=== PATIENT | male | born 1980 | race Caucasian/White ===

== ENCOUNTER 2016-09-29 01:14 | Emergency (ER) | payer MEDICAID ==
[~2016-09-29] VITALS: Ht 193 cm; Wt 154.2 kg
[~2016-09-29 01:14] MED LIST: ASPIRIN 81MG TA81 MG PO; BUPROPION HCL300 MG PO; LOSARTAN POTASS1 TA1 PO; TAMIFLU75 MG PO
[2016-09-29 01:53] LABS: HEMOGLOBIN 15.4 g/dL (14.1-18.0); LYMPH # 2.5 K/mm3 (0.7-4.5); LYMPH % 37.2 % (10-50)
[2016-09-29 03:13] LABS: BUN 14 mg/dL (7-18)
[2016-09-29 03:14] LABS: GFR (ESTIMATED) 96 ML/MIN (>60)
--- NOTE | 2016-09-29 03:24 | Emergency Room Report ---
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 N Clinical Suspician of Infection? N Mental Status: 1 - Regular (Normal Baseline) Sepsis Risk:Possible Sepsis Risk Have you (or family members/close friends) recently traveled outside the [place]? N If Yes, where/when: Have you had exposure to infectious disease within the past month? N TB? Other? Specify: Source patient, RN notes reviewed, old records Exam Limitations no limitations Comment took otc med with inc hr and bp with no chest pain Cardiac Chest Pain Chest pain indicative of cardiac No Timing/Duration this evening Severity moderate ALLERGIES Coded Allergies: Penicillins (09/17/16) codeine (09/17/16) Home Medications Reported Medications LOSARTAN/HYDROCHLOROTHIAZIDE (Losartan-Hctz 100-25 MG Tab) 1 TAB PO DAILY #30 ASPIRIN (Aspirin) 81 MG PO DAILY BUPROPION HCL (Bupropion XL) 300 MG PO DAILY #30 History Medical History General Angina: No [place]: No Hypertension? Yes Hyperlipidemia? No CHF? No PE? No COPD? No Asthma? No Anemia? No GERD? No Gastric ulcers? No GI Bleed? No Hernia? No CVA? No Seizures? No Diabetes? No GB Disease: No Arthritis? No Migraines? Yes Cataracts? No Glaucoma? No MRSA? No TB? No Cancer? No Immunization Hx DT/Tetanus 5-10 YRS Surgical Hx Previous Surgery?N Social History Smoking Hx Smoker: Light Tobacco Smoker Tobacco: Yes Type Cigars Packs/day N/A Alcohol Alcohol: Yes Drugs none Review of Systems All Other Systems Reviewed and Negative Constitutional denies fever Eyes denies drainage ENT denies: ear pain, epistaxis, throat pain. Respiratory denies cough, denies shortness of breath, denies wheezing Cardiovascular see HPI, denies chest pain, palpitations, denies syncope Gastrointestinal denies abdominal pain, denies diarrhea, denies vomiting Genitourinary denies: dysuria, frequency, hesitancy, hematuria. Musculoskeletal denies back pain, denies joint pain, denies joint swelling, denies neck pain Skin denies rash Psychiatric/Neurological denies headache, denies seizure Physical Exam Vital Signs Vital Signs Date Time Temp Pulse Resp B/P Pulse O2 O2 Flow FiO2 Ox Delivery Rate 09/29 0312 104 20 183/107 99 09/29 0152 103 22 195/105 98 09/29 0118 98.9 117 22 201/111 98 - WBC >12,000 or <4,000 or 10% bands? 2 or more SIRS Criteria Met? B/P:183/107 MAP:141 Creatinine >2.0? UA output<0.5ml/kg/hr for 2 hrs? Platelet count >100,000? Lactate >2.0mmol/1? INR >1.2 or PTT > than 60 sec? Evidence of Organ Dysfunction? Provider documented clinical suspician of infection? N Sepsis Criteria Count: 2 Sepsis Risk: Possible Sepsis Risk General Appearance no apparent distress Eye Exam - bilateral eye PERRL, bilateral eye EOMI Ear, Nose, Throat normal ENT inspection Neck supple Respiratory Status No: respiratory distress. Lung Sounds bilateral: lungs clear. 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 No Results/Orders Laboratory Tests 09/29/16 0135: Sodium 141, Potassium 3.3 L, Chloride 104, Carbon Dioxide 28, BUN 14, Creatinine 0.9, Estimated Creat Clear 250 H, Estimated GFR (MDRD) 96, Glucose 113 H, Calcium 8.6, Total Bilirubin 0.4, AST 22, ALT 59, Alkaline Phosphatase 92, Creatine Kinase 113, CK-MB (CK-2) Rel Index 1.0, CK and CKMB Interp 1.1, Troponin I < 0.02, Total Protein 8.0, Albumin 3.8, Globulin 4.2 H, Albumin/ Globulin Ratio 0.9 L, WBC 6.6, RBC 5.03, Hgb 15.4, Hct 44.1, MCV 87.6, RDW 12.3 , Plt Count 184, MPV 6.3 L, Gran % 57.1, Gran # 3.8, Lymphocytes % 37.2, Monocytes % 3.8, Eosinophils % 1.5, Basophils % 0.4, Lymphocytes # 2.5, Monocytes # 0.3, Eosinophils # 0.1, Basophils # 0.0, PUBS MCHC 34.9, MCH 30.6 Current Medication Orders Sig/Alessia Start time Last Medication Dose Route Stop Time Status Admin Aspirin 0 .STK-MED ONE 09/30 147 DC .ROUTE Aspirin 162 MG ONCE ONE 09/29 144 DC 09/29 PO 09/29 145 0151 Sodium Chloride 10 ML PRN PRN 09/29 129 AC IV 09/30 129 Orders Procedure Date/time Status ELECTROCARDIOGRAM REQUEST 09/29 129 Active CHEST(2 VIEWS-NOT PORTABLE) 09/29 129 Active IV SALINE LOCK 09/29 129 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 ST/Twave chgs XRAY/CT/US XRAY/CT/US XRAY chest XR interpretation by reviewed by me Xray Results abnormal Departure Departure Time of Disposition 355 Disposition DC Home or Self Care(routine) Clinical Impression Primary Impression: Adverse effects of medication Secondary Impressions: HTN (hypertension) Qualifiers: Hypertension type: essential hypertension Qualified Code: I10 - Essential (primary) hypertension Condition STABLE Referrals Piero ESPANA,A.C. (Family) Patient Instructions Treatments for High Blood Pressure: More Than Just Taking a Pill Additional Instructions see pcp for follow up Discharge Counseling Counseled pt/family regarding diagnosis, test results, follow up needs ED Critical Care Critical Care No at 035
--- NOTE | 2016-09-29 03:24 | Emergency Room Report ---
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 N Clinical Suspician of Infection? N Mental Status: 1 - Regular (Normal Baseline) Sepsis Risk:Possible Sepsis Risk Have you (or family members/close friends) recently traveled outside the [place]? N If Yes, where/when: Have you had exposure to infectious disease within the past month? N TB? Other? Specify: Source patient, RN notes reviewed, old records Exam Limitations no limitations Comment took otc med with inc hr and bp with no chest pain Cardiac Chest Pain Chest pain indicative of cardiac No Timing/Duration this evening Severity moderate ALLERGIES Coded Allergies: Penicillins (09/17/16) codeine (09/17/16) Home Medications Reported Medications LOSARTAN/HYDROCHLOROTHIAZIDE (Losartan-Hctz 100-25 MG Tab) 1 TAB PO DAILY #30 ASPIRIN (Aspirin) 81 MG PO DAILY BUPROPION HCL (Bupropion XL) 300 MG PO DAILY #30 History Medical History General Angina: No [place]: No Hypertension? Yes Hyperlipidemia? No CHF? No PE? No COPD? No Asthma? No Anemia? No GERD? No Gastric ulcers? No GI Bleed? No Hernia? No CVA? No Seizures? No Diabetes? No GB Disease: No Arthritis? No Migraines? Yes Cataracts? No Glaucoma? No MRSA? No TB? No Cancer? No Immunization Hx DT/Tetanus 5-10 YRS Surgical Hx Previous Surgery?N Social History Smoking Hx Smoker: Light Tobacco Smoker Tobacco: Yes Type Cigars Packs/day N/A Alcohol Alcohol: Yes Drugs none Review of Systems All Other Systems Reviewed and Negative Constitutional denies fever Eyes denies drainage ENT denies: ear pain, epistaxis, throat pain. Respiratory denies cough, denies shortness of breath, denies wheezing Cardiovascular see HPI, denies chest pain, palpitations, denies syncope Gastrointestinal denies abdominal pain, denies diarrhea, denies vomiting Genitourinary denies: dysuria, frequency, hesitancy, hematuria. Musculoskeletal denies back pain, denies joint pain, denies joint swelling, denies neck pain Skin denies rash Psychiatric/Neurological denies headache, denies seizure Physical Exam Vital Signs Vital Signs Date Time Temp Pulse Resp B/P Pulse O2 O2 Flow FiO2 Ox Delivery Rate 09/29 0312 104 20 183/107 99 09/29 0152 103 22 195/105 98 09/29 0118 98.9 117 22 201/111 98 - WBC >12,000 or <4,000 or 10% bands? 2 or more SIRS Criteria Met? B/P:183/107 MAP:141 Creatinine >2.0? UA output<0.5ml/kg/hr for 2 hrs? Platelet count >100,000? Lactate >2.0mmol/1? INR >1.2 or PTT > than 60 sec? Evidence of Organ Dysfunction? Provider documented clinical suspician of infection? N Sepsis Criteria Count: 2 Sepsis Risk: Possible Sepsis Risk General Appearance no apparent distress Eye Exam - bilateral eye PERRL, bilateral eye EOMI Ear, Nose, Throat normal ENT inspection Neck supple Respiratory Status No: respiratory distress. Lung Sounds bilateral: lungs clear. 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 No Results/Orders Laboratory Tests 09/29/16 0135: Sodium 141, Potassium 3.3 L, Chloride 104, Carbon Dioxide 28, BUN 14, Creatinine 0.9, Estimated Creat Clear 250 H, Estimated GFR (MDRD) 96, Glucose 113 H, Calcium 8.6, Total Bilirubin 0.4, AST 22, ALT 59, Alkaline Phosphatase 92, Creatine Kinase 113, CK-MB (CK-2) Rel Index 1.0, CK and CKMB Interp 1.1, Troponin I < 0.02, Total Protein 8.0, Albumin 3.8, Globulin 4.2 H, Albumin/ Globulin Ratio 0.9 L, WBC 6.6, RBC 5.03, Hgb 15.4, Hct 44.1, MCV 87.6, RDW 12.3 , Plt Count 184, MPV 6.3 L, Gran % 57.1, Gran # 3.8, Lymphocytes % 37.2, Monocytes % 3.8, Eosinophils % 1.5, Basophils % 0.4, Lymphocytes # 2.5, Monocytes # 0.3, Eosinophils # 0.1, Basophils # 0.0, PUBS MCHC 34.9, MCH 30.6 Current Medication Orders Sig/Alessia Start time Last Medication Dose Route Stop Time Status Admin Aspirin 0 .STK-MED ONE 09/30 147 DC .ROUTE Aspirin 162 MG ONCE ONE 09/29 144 DC 09/29 PO 09/29 145 0151 Sodium Chloride 10 ML PRN PRN 09/29 129 AC IV 09/30 129 Orders Procedure Date/time Status ELECTROCARDIOGRAM REQUEST 09/29 129 Active CHEST(2 VIEWS-NOT PORTABLE) 09/29 129 Active IV SALINE LOCK 09/29 129 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 ST/Twave chgs XRAY/CT/US XRAY/CT/US XRAY chest XR interpretation by reviewed by me Xray Results abnormal Departure Departure Time of Disposition 355 Disposition DC Home or Self Care(routine) Clinical Impression Primary Impression: Adverse effects of medication Secondary Impressions: HTN (hypertension) Qualifiers: Hypertension type: essential hypertension Qualified Code: I10 - Essential (primary) hypertension Condition STABLE Referrals Piero ESPANA,A.C. (Family) Patient Instructions Treatments for High Blood Pressure: More Than Just Taking a Pill Additional Instructions see pcp for follow up Discharge Counseling Counseled pt/family regarding diagnosis, test results, follow up needs ED Critical Care Critical Care No at 035
[2016-09-29 04:12] VITALS: BP 167/105
--- NOTE | 2016-09-29 09:01 | RADIOLOGY REPORT PS360 ---
CHEST(2 VIEWS-NOT PORTABLE) COMPARISON: PA and lateral chest 09/09/2016 HISTORY: Chest pain TECHNIQUE: PA and lateral chest FINDINGS: The lung murray are well expanded and appear clear of infiltrate. The cardiac silhouette and vascularity are normal and there is no pleural fluid. There are minor degenerative changes mid thoracic spine. IMPRESSION: Essentially negative chest
== END 2016-09-29 04:12 | disposition home or self-care (01) ==
LOC: ER 01:14
PROVIDERS: Emergency Medicine
DX: R00.0 Tachycardia, unspecified (principal); T50.995A Adverse effect of other drugs, medicaments and biological substances, initial encounter; Y92.009 Unspecified place in unspecified non-institutional (private) residence as the place of occurrence of the external cause; I10 Essential (primary) hypertension; Z72.0 Tobacco use

== ENCOUNTER 2017-02-24 16:14 | Emergency (ER) | payer MEDICAID ==
[~2017-02-24] VITALS: Ht 193 cm; Wt 158.8 kg
--- NOTE | 2017-02-24 17:03 | Urgent Treatment Center Report ---
History of Present Issue Date/Time Seen by Provider 02/24/17 8545 Visit Reason Pt arrived:Walked Presenting Problem:SORE THROAT FOR 2 DAYS AND TIRED. Location if Accident: Onset of symptoms date/time:/ or onset unknown for:MEDICAL HX UNKNOWN Have you (or family members/close friends) recently traveled outside the [place]? N If Yes, where/when: Have you had exposure to infectious disease within the past month? TB? Other? Specify: Patient states that he has had the sorethroat for several days that has continued to get worse. States that he is having pain when he swallows and over all feeling tired and not feeling well for 2 days States that his daughter was recently treated for strep so he was worried that he may have got it too ALLERGIES Coded Allergies: Penicillins (09/17/16) codeine (09/17/16) Home Medications Reported Medications LOSARTAN/HYDROCHLOROTHIAZIDE (Losartan-Hctz 100-25 MG Tab) 1 TAB PO DAILY #30 ASPIRIN (Aspirin) 81 MG PO DAILY BUPROPION HCL (Bupropion XL) 300 MG PO DAILY #30 History Medical History General CAD? No Angina: No [place]: No Hypertension? Yes Hyperlipidemia? No CHF? No DVT? No PE? No COPD? No Asthma? No Anemia? No GERD? No Gastric ulcers? No GI Bleed? No Hernia? No Thyroid Problems? No Hypothyroidism? No CVA? No Seizures? No Diabetes? No Renal Insuffiency? No UTI? No Stones? No BPH? No GB Disease: No Nephritic Syndrome? No Asplenia? No Hepatitis? No Sickle Cell Disease? No Arthritis? No Migraines? Yes Cataracts? No Glaucoma? No MRSA? No HIV? No TB? No Anxiety? Yes Depression? No Cancer? No More? No Immunization HX DT/Tetanus 5-10 YRS Surgical Hx Previous Surgery?N Social History Smoking Hx Smoker: Never Smoker Tobacco: No Packs/day N/A Alcohol Alcohol: Yes Review of Systems All Other Systems Reviewed and Negative ENT nose congestion, throat pain, throat swelling. Physical Exam Vital Signs Vital Signs Date Time Temp Pulse Resp B/P Pulse O2 O2 Flow FiO2 Ox Delivery Rate 02/24 1718 98.7 87 20 138/96 98 02/24 1648 98.7 87 20 138/96 98 General Appearance Patient appears ill sitting on exam chair Ear, Nose, Throat tonsillar swelling, throat red irritated, white patchy area on uvula, drainage noted in back of throat Respiratory Status Yes: trachea midline, chest symmetrical, non tender chest. No: respiratory distress. 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 No Results/Orders Laboratory Tests 02/24/17 1650: Group A Strep Screen NOT DETECTED Orders Procedure Date/time Status [facility] STREP SCREEN 02/24 1653 Complete Progress [facility] Progress Notes Comment reviewed lab results Departure Departure Time of Disposition 171 Disposition DC Home or Self Care(routine) Clinical Impression Primary Impression: Upper respiratory infection Qualifiers: URI type: unspecified URI Qualified Code: J06.9 - Acute upper respiratory infection, unspecified Condition STABLE Referrals Piero ESPANA,A.C. (Family): 3 Days-Call Office Patient Instructions Sore Throat Additional Instructions * Monitor Temp. Tylenol and/or Ibuprofen as needed. ER if fever is no less than 101 despite alternating Tylenol and Ibuprofen * Encourage fluids, water, Gatorade, powerade, pedialyte if infant/toddler/or child * Warm salt water gargles for throat irritation *Warm fluids *Sore throat lozenges *Sleep elevated *humidifier or vaporizer Follow up IMMEDIATELY for new or worsening of symptoms OR no noticeable improvement over the next 48-72 hours. 911 immediately for any life threatening symptoms such as chest pain or difficulty breathing Discharge Counseling Counseled pt/family regarding diagnosis, test results, medications/RX, home care, follow up needs Prescriptions Current Visit Scripts Phenol (CHLORASEPTIC THROAT SPRAY) 1 SPRAY MM PRN PRN sore throat pain #1 BOT Azithromycin (Zithromycin (Z-ELSY) 250MG Tab) 250 MG PO DAILY #6 TAB TAKE TWO (2) TABLETS ON DAY 1, THEN ONE (1) TABLET DAY #2 THRU #5 Methylprednisolone (Medrol Dose Elsy) 4 MG PO UD #1 ELSY TAKE DIRECTED ON PACKAGING at 1721
--- NOTE | 2017-02-24 17:03 | Urgent Treatment Center Report ---
History of Present Issue Date/Time Seen by Provider 02/24/17 0205 Visit Reason Pt arrived:Walked Presenting Problem:SORE THROAT FOR 2 DAYS AND TIRED. Location if Accident: Onset of symptoms date/time:/ or onset unknown for:MEDICAL HX UNKNOWN Have you (or family members/close friends) recently traveled outside the [place]? N If Yes, where/when: Have you had exposure to infectious disease within the past month? TB? Other? Specify: Patient states that he has had the sorethroat for several days that has continued to get worse. States that he is having pain when he swallows and over all feeling tired and not feeling well for 2 days States that his daughter was recently treated for strep so he was worried that he may have got it too ALLERGIES Coded Allergies: Penicillins (09/17/16) codeine (09/17/16) Home Medications Reported Medications LOSARTAN/HYDROCHLOROTHIAZIDE (Losartan-Hctz 100-25 MG Tab) 1 TAB PO DAILY #30 ASPIRIN (Aspirin) 81 MG PO DAILY BUPROPION HCL (Bupropion XL) 300 MG PO DAILY #30 History Medical History General CAD? No Angina: No [place]: No Hypertension? Yes Hyperlipidemia? No CHF? No DVT? No PE? No COPD? No Asthma? No Anemia? No GERD? No Gastric ulcers? No GI Bleed? No Hernia? No Thyroid Problems? No Hypothyroidism? No CVA? No Seizures? No Diabetes? No Renal Insuffiency? No UTI? No Stones? No BPH? No GB Disease: No Nephritic Syndrome? No Asplenia? No Hepatitis? No Sickle Cell Disease? No Arthritis? No Migraines? Yes Cataracts? No Glaucoma? No MRSA? No HIV? No TB? No Anxiety? Yes Depression? No Cancer? No More? No Immunization HX DT/Tetanus 5-10 YRS Surgical Hx Previous Surgery?N Social History Smoking Hx Smoker: Never Smoker Tobacco: No Packs/day N/A Alcohol Alcohol: Yes Review of Systems All Other Systems Reviewed and Negative ENT nose congestion, throat pain, throat swelling. Physical Exam Vital Signs Vital Signs Date Time Temp Pulse Resp B/P Pulse O2 O2 Flow FiO2 Ox Delivery Rate 02/24 1718 98.7 87 20 138/96 98 02/24 1648 98.7 87 20 138/96 98 General Appearance Patient appears ill sitting on exam chair Ear, Nose, Throat tonsillar swelling, throat red irritated, white patchy area on uvula, drainage noted in back of throat Respiratory Status Yes: trachea midline, chest symmetrical, non tender chest. No: respiratory distress. 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 No Results/Orders Laboratory Tests 02/24/17 1650: Group A Strep Screen NOT DETECTED Orders Procedure Date/time Status [facility] STREP SCREEN 02/24 1653 Complete Progress [facility] Progress Notes Comment reviewed lab results Departure Departure Time of Disposition 171 Disposition DC Home or Self Care(routine) Clinical Impression Primary Impression: Upper respiratory infection Qualifiers: URI type: unspecified URI Qualified Code: J06.9 - Acute upper respiratory infection, unspecified Condition STABLE Referrals Piero ESPANA,A.C. (Family): 3 Days-Call Office Patient Instructions Sore Throat Additional Instructions * Monitor Temp. Tylenol and/or Ibuprofen as needed. ER if fever is no less than 101 despite alternating Tylenol and Ibuprofen * Encourage fluids, water, Gatorade, powerade, pedialyte if infant/toddler/or child * Warm salt water gargles for throat irritation *Warm fluids *Sore throat lozenges *Sleep elevated *humidifier or vaporizer Follow up IMMEDIATELY for new or worsening of symptoms OR no noticeable improvement over the next 48-72 hours. 911 immediately for any life threatening symptoms such as chest pain or difficulty breathing Discharge Counseling Counseled pt/family regarding diagnosis, test results, medications/RX, home care, follow up needs Prescriptions Current Visit Scripts Phenol (CHLORASEPTIC THROAT SPRAY) 1 SPRAY MM PRN PRN sore throat pain #1 BOT Azithromycin (Zithromycin (Z-ELSY) 250MG Tab) 250 MG PO DAILY #6 TAB TAKE TWO (2) TABLETS ON DAY 1, THEN ONE (1) TABLET DAY #2 THRU #5 Methylprednisolone (Medrol Dose Elsy) 4 MG PO UD #1 ELSY TAKE DIRECTED ON PACKAGING at 1721
[2017-02-24 17:18] VITALS: BP 138/96
[2017-02-24] MEDS ORDERED: MEDROL 4MG. DOSE4 MG PO (17:21)
[2017-02-24] MEDS ORDERED: ZITHROMAX Z PA250 MG PO (17:21)
[2017-02-24] MEDS ORDERED: CHLORASEPTIC S177 ML MM (17:21)
--- OUTSIDE RECORDS SUMMARY | 2017-02-24 22:33 | External Medical Summary Rpt ---
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 Name Role Phone A Omer DAVIDSON MD PSC, Dave Unavailable Unavailable Omer DAVIDSON MD [facility] VILMA ESPARZA Unavailable Unavailable NORIEGA ALL, NORIEGA ALL Unavailable Unavailable FINE, FINE Unavailable Unavailable CISNEROS, CISNEROS Unavailable Unavailable [facility] Un[facility] Un[facility], [facility] Unavailable [facility]available HOSPITAL P, [facility], Unavailable Unavailable [facility], Unavailable Unavailable [facility] Unavailable Unavailable [facility], [facility] KILPELA JEA, KILPELA Unavailable Unavailable [facility] Unavailable Unavailable [facility] Unavailable Unavailable [facility]INGS, [facility] Unavailable Unavailable HOLDINGS, [facility] IAN SOSA JR, JR Unavailable Unavailable ANJALI, ANJALI Unavailable Unavailable ANJALI MAT, Unavailable Unavailable ANJALI MAT [facility] Unavailable Unavailable E[facility], [facility] Unavailable Unavailable [facility], [facility] STONE, STONE Unavailable Unavailable MIKE, MIKE Unavailable Unavailable Purpose Continuity of Care Document - 03-18-2016 through 2016 Problems Code Diagnosis DOS Provider Status G4733 OBSTRUCTIVE 12-17-2016 [facility] APNEA ADULT MEDICAL PEDIATRIC EQUIPME 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 [facility] N HOLDINGS I10 ESSENTIAL 10-01-2016 [facility] PRIMARY [facility] HYPERTENSIO HOLDINGS N R000 TACHYCARDIA 10-01-2016 [facility]NS[facility] R0683 SNORING 10-01-2016 [facility] R5383 OTHER 10-01-2016 [facility] R079 CHEST PAIN 09-29-2016 [facility] [id number] ADVERS EFF 09-29-2016 [facility] P SUBSTANCES INIT ENC S41062 UNS PLACE 09-29-2016 [facility] UNS NON [facility] P PLACE OF OCCUR EXT Z720 TOBACCO USE 09-29-2016 [facility] R400 SOMNOLENCE 09-18-2016 [facility] R7989 OTHER SPEC 09-18-2016 [facility] ABNORMAL PHYSICIANS FINDINGS GROUP BLOOD CHEMISTRY R931 ABNORMAL 09-18-2016 [facility] FINDINGS ON PHYSICIANS DX IMAGING GROUP HEART & COR CIRC X65442 PAIN IN 07-08-2016 MIKE UNSPECIFIED ANKLE M2570 OSTEOPHYTE 07-08-2016 [facility] UNSPECIFIED JOINT M7730 CALCANEAL 07-08-2016 [facility] SPUR UNSPECIFIED FOOT G99481 PAIN IN 07-08-2016 [facility] RIGHT FOOT J020 STREPTOCOCC 06-23-2016 [facility] AL PHYSICIAN PHARYNGITIS GROUP 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 DUE GROUP TO EXCESS CALORIES G4700 INSOMNIA 04-18-2016 A Omer DAVIDSON UNSPECIFIED PSC R635 ABNORMAL 04-18-2016 A Omer DAVIDSON WEIGHT GAIN PSC E785 HYPERLIPIDE 04-05-2016 [facility] UNSPECIFIED HOLDINGS 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 03-21-2016 [facility] MITRAL SERV [facility] INSUFFICIEN CY I361 NONRHEUMATI 03-21-2016 [facility] TRICUSPID SERV [facility] INSUFFICIEN CY I371 NONRHEUMATI 03-21-2016 [facility] PULMONARY SERV [facility] INSUFFICIEN CY R0602 SHORTNESS 03-21-2016 [facility] MEDICAL [facility] E669 OBESITY 03-19-2016 [facility] UNSPECIFIED PHYSICIANS GROUP Medications Na ND Rx Da Fi Fi Am Da Di Ph RX Ph St me C No te ll ll ou ys ag ar # ys at rm s nt no ma ic us Or Da si cy ia de te s n re d VE 00 06 07 30 30 00 WA Ac NL 09 -1 .0 00 L- ti AF 37 07 MA ve AX 38 20 20 49 RT IN 45 17 17 43 E 6 73 PH HC AR L MA ER CY 37 #5 .5 91 MG CA P LO 68 06 07 30 30 00 WA Ac SA 18 -1 -1 .0 00 L- ti RT 00 07 MA ve AN 21 20 20 49 RT -H [address] 9 75 PH Z AR 10 MA 0- CY 25 #5 MG 91 TA B VE 00 05 30 30 00 ID Ac NL 09 -0 -0 .0 00 L- ti AF 37 5- 2- 00 07 MA ve AX 38 20 20 48 RT IN 45 17 17 04 E 6 58 PH HC AR L MA ER CY 37 #5 .5 91 MG CA P LO 68 05 30 30 00 ID Ac SA 18 -0 -0 .0 00 L- ti RT 00 5- 2- 00 07 MA ve AN 21 20 20 48 RT -H [address] 9 57 PH Z AR 10 MA 0- CY 25 #5 MG 91 TA B LO 68 04 30 30 00 ID Ac SA 18 -1 -0 .0 00 L- ti RT 00 2- 5- 00 07 MA ve AN 21 20 20 44 RT -H [address] 9 55 PH Z AR 10 MA 0- CY 25 #5 MG 91 TA B VE 00 04 11 17 30 00 ID Ac NL 09 -0 -2 .0 00 L- ti AF 37 4- 8- 00 07 MA ve AX 38 20 20 48 RT IN 45 17 17 04 E 6 58 PH HC AR L MA ER CY 37 #5 .5 91 MG CA P LO 68 03 30 30 00 ID Ac SA 18 -1 -0 .0 00 L- ti RT 00 1- 7- 00 07 MA ve AN 21 20 20 44 RT -H [address] 9 55 PH Z AR 10 MA 0- CY 25 #5 MG 91 TA B BU 45 07 22 29 30 00 ID Ac CA 96 -2 -2 .0 00 L- ti OP 30 8- 4- 00 07 MA ve IO 14 20 20 44 RT N 20 17 17 39 HC 5 72 PH L AR XL MA CY 30 0 #5 MG 91 TA BL ET LO 68 07 22 29 30 00 ID Ac SA 18 -2 -2 .0 00 L- ti RT 00 8- 4- 00 07 MA ve AN 21 20 20 44 RT -H [address] 9 55 PH Z AR 10 MA 0- CY 25 #5 MG 91 TA B Procedures Procedure DOS Code Location Performer Comment CONTINUOU E0601 ANJEL BINGHAMRELL S 7 HOME HOME POSITIVE MEDICAL MEDICAL AIRWAY EQUIPME EQUIPME PRESSURE DEVICE CONTINUOU E0601 ANJEL HOBBS S 7 HOME HOME POSITIVE MEDICAL MEDICAL AIRWAY EQUIPME EQUIPME PRESSURE DEVICE TUBING A7037 ANJEL HOBBS USED WITH 7 HOME HOME POSITIVE MEDICAL MEDICAL AIRWAY EQUIPME EQUIPME PRESSURE DEVICE FULL FACE A7030 ANJEL HOBBS MASK 7 HOME HOME USED MEDICAL MEDICAL W/POS EQUIPME EQUIPME ARWAY PRESS DEVICE EA FILTER A7038 ANJEL HOBBS DISPBL 7 HOME HOME USED MEDICAL MEDICAL W/POS EQUIPME EQUIPME ARWAY PRESSURE DEVICE FILTER A7039 ANJEL HOBBS NON 7 HOME HOME DISPBL MEDICAL MEDICAL USED EQUIPME EQUIPME W/POS ARWAY PRESS DEVICE HUMDIFIR E0562 ANJEL HOBBS HEATED 7 HOME HOME USED MEDICAL MEDICAL W/POS EQUIPME EQUIPME ARWAY PRESSURE DEVICE HEADGEAR A7035 ANJEL HOBBS USED 7 HOME HOME W/POSITIV MEDICAL MEDICAL E AIRWAY EQUIP[place] E[place] [address] LAB [facility] LAB [facility] TESTOSTER 7 [facility] FREE HOLDINGS HOLDINGS GONADOTRO 17267 LAB [facility] LAB [facility] PIN 7 [facility] FOLLICLE HOLDINGS HOLDINGS STIMULATI NG HORMONE GONADOTRO 85068 LAB [facility] LAB [facility] PIN 7 [facility] LUTEINIZI HOLDINGS HOLDINGS NG HORMONE COLLECTIO 39519 Dave C BLAYNE N VENOUS 7 STUART [place] [address] LAB [facility] LAB ALTON FREE 7 [facility] [place] [address] LAB AL[facility] LAB [facility]TON THYROID 7 [facility] ASHLEY STIMULATI HOLDINGS HOLDINGS NG HORMONE TSH SLEEP STD 07432 [facility] COLIN AIRFLOW 7 MEM HOS[facility] MEM HOSP HRT INC INC RATE&O2 SAT EFFORT UNATT COMPREHEN 87488 LAB AL[facility] LAB ALTON SIVE 7 [facility] METABOLIC [place] [address] LAB ALTON LAB ALTON TESTOSTER 7 [facility] [place] [address] LAB AL[facility] LAB ALTON ZINC 7 [facility] HOLDINGS HOLDINGS DEHYDROEP 52944 LAB AL[facility] LAB ALTON IANDROSTE 7 [facility] ASHLEY MICHAEL HOLDINGS HOLDINGS RADIOLOGI 77230 [facility] COLIN C EXAM 7 [facility] HOS[facility] HOSP CHEST 2 INC INC VIEWS FRONTAL&L ATERAL BLOOD 93563 [facility] COLIN COUNT 7 [facility] COMPLETE INC INC AUTO&[place] [address] [facility] COLIN TROPONIN 7 [facility] QUANTITAT INC INC ESTEBAN COMPREHEN 82281 D[facility] COL[facility] SIVE 7 [facility] METABOLIC INC INC PANEL ECG 71140 D[facility]IE ESPARZA ROUTINE 7 [facility] W/LEAST P 12 LDS I&R ONLY ECG 31279 [facility] COLIN ROUTINE 7 [facility] ECG INC INC W/LEAST 12 LDS TRCG ONLY W/O I&R CREATINE 05515 [facility] COLIN KINASE MB 7 [facility] FRACTION INC INC ONLY CREATINE 71890 D[facility] COLIN KINASE 7 [facility] TOTAL INC INC UNCLASSIF J3490 [facility] COLIN IED DRUGS 7 [facility] INC INC UNCLASSIF J3490 D[facility] COL[facility] IED DRUGS 7 [facility] INC INC THER 12019 D[facility] COLIN PROPH/DX 7 [facility] NJX IV INC INC PUSH SINGLE/1S T SBST/DRUG ECG 74959 [facility] COLIN ROUTINE 7 [facility] ECG INC INC W/LEAST 12 LDS TRCG ONLY W/O I&R ECG 04452 [facility] ANJALI ROUTINE 7 PHYSICIAN ECG S GROUP W/LEAST 12 LDS I&R ONLY COMPREHEN 45280 [facility] COLIN SIVE 7 [facility] [place] [address] D[facility] COLIN TROPONIN 7 [facility] QUANTITAT INC INC ESTEBAN BLOOD 89767 [facility] COLIN COUNT 7 [facility] COMPLETE INC INC AUTO&AUTO DIFRNTL WBC RADIOLOGI 75285 [facility] COLIN C EXAM 7 [facility] HOSP CHEST 2 INC INC VIEWS FRONTAL&L ATERAL ECG 51630 [facility]IE SOSA JR ROUTINE 7 [facility] W/LEAST P 12 LDS I&R ONLY ECG 11464 [facility] COLIN ROUTINE 7 [facility] ECG INC INC W/LEAST 12 LDS TRCG ONLY W/O I&R CREATINE 30409 [facility] COL[facility] KINASE 7 [facility] TOTAL INC INC CREATINE 02434 [facility] COLIN KINASE MB 7 [facility] FRACTION INC INC ONLY UNCLASSIF J3490 D[facility] IED DRUGS 7 [facility] INC INC RADEX 67235 MIKE FINE ANKLE 6 COMPLETE MINIMUM 3 VIEWS RADEX 31346 MIKE FINE FOOT 6 COMPLETE MINIMUM 3 VIEWS ECG 98614 [facility] ANJALI ROUTINE 6 PHYSICIAN MAT ECG S GROUP W/LEAST 12 LDS I&R ONLY ECG 65783 [facility] COLIN ROUTINE 6 [facility] ECG INC INC W/LEAST 12 LDS TRCG ONLY W/O I&R LIPID 92355 Dave C CONRAD PANEL 6 [place] [address] LAB [facility] LAB [facility] TESTOSTER 6 [facility] [employer] HOLDINGS HOLDINGS ECHO 53979 BRITNI LEYVA TRANSTHOR 6 MEDICAL LINDA C R-T 2D SERV W/WO FOUNDATIO M-MODE N REC F-UP/LMTD ECG 68394 [facility] ANJALI ROUTINE 6 PHYSICIAN MAT ECG S GROUP W/LEAST 12 LDS I&R ONLY ECG 56058 [facility] ROUTINE 6 [facility] ECG INC INC W/LEAST 12 LDS TRCG ONLY W/O I&R CV STRS 80401 [facility] TST 6 [facility] XERS&/OR INC INC RX CONT ECG TRCG ONLY RADIOLOGI 63792 [facility] C EXAM 6 [facility] CHEST 2 INC INC VIEWS FR[place]AL&[place] [address] D[facility] COLNI RETROPERI 6 [facility] TONEAL INC [place] [address] [facility] NORIEGA ALL RETROPERI 6 MEDICAL TONEAL IMAGING REAL TIME ASS W/IMAGE LIMITED ECHO 37879 [facility] COLIN TTHRC R-T 6 [facility] 2D INC INC W/WOM-MOD E COMPL SPEC&COLR D ECG 30885 [facility] ANJALI ROUTINE 6 PHYSICIAN MAT ECG S GROUP W/LEAST 12 LDS I&R ONLY ECG 67471 [facility] COL[facility] ROUTINE 6 [facility] ECG INC INC W/LEAST 12 LDS TRCG ONLY W/O I&R ECG 52293 A C KILPELA ROUTINE 6 STUART ESPANA JEA ECG PSC W/LEAST 12 LDS W/I&R BLOOD 37839 A C CONRAD COUNT 6 [facility] JEA COMPLETE PSC AUTO&AUTO DIFRNTL WBC HEMOGLOBI 45710 A C KILPELA N 6 [facility] JEA GLYCOSYLA PSC ISABELLE A1C Encounters Encounter Start End Date Code Location Performer Type Date HOSPITAL [facility] - 7 7 [facility] OUTPATIEN INC T OFFICE 81040 A Omer CISNEROS OUTPATIEN 7 7 [facility] T VISIT PSC 15 MINUTES EMERGENCY 79705 [facility] 7 7 [facility] DEPARTMEN INC T VISIT HIGH/URGE NT SEVERITY HOSPITAL [facility] - 7 7 [facility] OUTPATIEN INC T OFFICE 79143 [facility] ANJALI OUTPATIEN 7 7 PHYSICIAN T VISIT S GROUP 25 MINUTES HOSPITAL [facility] - 7 7 [facility] OUTPATIEN INC T HOSPITAL DIXIE - 7 7 [facility] OUTPATIEN INC T EMERGENCY 13792 [facility] 7 7 [facility] DEPARTMEN INC T VISIT HIGH/URGE NT SEVERITY OFFICE 78951 MIKE FINE OUTPATIEN 6 6 T NEW 30 MINUTES OFFICE 61989 [facility] STONE OUTPATIEN 6 6 PHYSICIAN T VISIT GROUP 25 MINUTES OFFICE 55838 [facility] ANJALI OUTPATIEN 6 6 PHYSICIAN MAT T VISIT S GROUP 25 MINUTES HOSPITAL DIXIE - 6 6 [facility] OUTPATIEN INC T OFFICE 44512 A C KILPELA OUTPATIEN 6 6 STUART ADEN T VISIT PSC 25 MINUTES OFFICE 13858 A C TAMIKAPELA OUTPATIEN 6 6 STUART ADEN T VISIT [facility] 15 MINUTES HOSPITAL DIXIE - 6 6 [facility] OUTPATIEN INC T OFFICE 39707 [facility] ANJALI OUTPATIEN 6 6 PHYSICIAN RIKKI Faustin VISIT S GROUP 25 MINUTES HOSPITAL DIXIE - 6 6 [facility] OUTPATIEN INC T OFFICE 46036 A C [place] OUTPATIEN 6 6 STUART ADEN T VISIT [facility] 15 MINUTES OFFICE 74106 [facility] ANJALI OUTPATIEN 6 6 PHYSICIAN RIKKI Faustin NEW 45 S GROUP MINUTES HOSPITAL DIXIE - 6 6 [facility] OUTPATI[facility] INC T
--- OUTSIDE RECORDS SUMMARY | 2017-02-24 22:33 | External Medical Summary Rpt ---
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, Unavailable Unavailable [facility], Unavailable Unavailable [facility] Unavailable [facility]available [facility], [facility] KILPELA JEA, KILPELA Unavailable [...] [facility] R079 CHEST PAIN 09-29-2016 [place] [facility] [id number] ADVERS EFF 09-29-2016 [place] [facility]TH RX MEDS [facility] P SUBSTANCES INIT ENC [id number] UNS PLACE 09-29-2016 DIXIE UNS NON [facility] P PLACE OF OCCUR EXT Z720 TOBACCO USE 09-29-2016 [facility] R400 SOMNOLENCE 09-18-[address] [facility] R7989 OTHER SPEC 09-18-[address] [facility] ABNORMAL PHYSICIANS FINDINGS GROUP BLOOD CHEMISTRY R931 ABNORMAL 09-18-[address] [facility] FINDINGS ON PHYSICIANS DX IMAGING GROUP HEART & COR CIRC [id number] PAIN IN 07-08-2016 MIKE UNSPECIFIED ANKLE M2570 OSTEOPHYTE 07-08-2016 [facility] UNSPECIFIED JOINT M7730 CALCANEAL 07-08-2016 MIKE SPUR UNSPECIFIED FOOT [id number] PAIN IN 07-08-2016 MIKE RIGHT FOOT J020 STREPTOCOCC 06-23-[address] [facility] AL PHYSICIAN PHARYNGITIS GROUP 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-26-[address] [facility] SEVERE PHYSICIANS OBESITY DUE GROUP TO EXCESS CALORIES G4700 INSOMNIA 04-18-2016 A Omer DAVIDSON UNSPECIFIED PSC R635 ABNORMAL 04-18-2016 A Omer DAVIDSON WEIGHT GAIN PSC E785 HYPERLIPIDE 04-05-2016 LAB [facility] UNSPECIFIED HOLDINGS 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 03-21-2016 [place] [facility] INSUFFICIEN CY I361 NONRHEUMATI 03-21-2016 [place] [facility] TRICUSPID SERV [facility] INSUFFICIEN CY I371 NONRHEUMATI 03-21-2016 [place] [facility] PULMONARY [facility] INSUFFICIEN CY R0602 SHORTNESS 03-21-2016 [facility] E669 OBESITY 03-19-[address] [facility] UNSPECIFIED PHYSICIANS GROUP Medications Na ND [...] B VE 00 05 30 30 00 [place] Ac NL 09 -0 -0 .0 00 L- ti AF 37 5- 2- 00 07 MA ve AX 38 20 20 48 RT IN 45 17 17 04 E 6 58 PH HC AR L MA ER CY 37 #5 .5 91 MG CA P LO 68 05 30 30 00 [place] Ac SA 18 -0 -0 .0 00 L- ti RT 00 5- 2- 00 07 MA ve AN 21 20 20 48 RT -H [address] 9 57 PH Z AR 10 MA 0- CY 25 #5 MG 91 TA B LO 68 04 30 30 00 [place] Ac SA 18 -1 -0 .0 00 L- ti RT 00 2- 5- 00 07 MA ve AN 21 20 20 44 RT -H [address] 9 55 PH Z AR 10 MA 0- CY 25 #5 MG 91 TA B VE 00 04 11 17 30 00 [place] Ac NL 09 -0 -2 .0 00 L- ti AF 37 4- 8- 00 07 MA ve AX 38 20 20 48 RT IN 45 17 17 04 E 6 58 PH HC AR L MA ER CY 37 #5 .5 91 MG CA P LO 68 03 30 30 00 [place] Ac SA 18 -1 -0 .0 00 L- ti RT 00 1- 7- 00 07 MA ve AN 21 20 20 44 RT -H [address] 9 55 PH Z AR 10 MA 0- CY 25 #5 MG 91 TA B BU 45 07 22 29 30 00 [place] Ac MN 96 -2 -2 .0 00 L- ti OP 30 8- 4- 00 07 MA ve IO 14 20 20 44 RT N 20 17 17 39 HC 5 72 PH L AR XL MA CY 30 0 #5 MG 91 TA BL ET LO 68 07 22 29 30 00 [place] Ac SA 18 -2 -2 .0 00 [...] AIRWAY EQU[place] [address] LAB AL[facility] LAB ALTON TESTOSTER 7 [facility] FREE HOLDINGS HOLDINGS GONADOTRO 10702 LAB ALTON LAB ALTON PIN 7 [facility] FOLLICLE HOLDINGS HOLDINGS STIMULATI NG HORMONE GONADOTRO 86009 LAB ALTON LAB ALTON PIN 7 [facility] LUTEINIZI HOLDINGS HOLDINGS NG HORMONE COLLECTIO 81776 Dave C BLAYNE N VENOUS 7 STUART ESP[place] B[place] [address] LAB ALTON LAB ALTON FREE 7 [facility] [place] [address] LAB ALTON LAB ALTON THYROID 7 [facility] ASHLEY STIMULATI HOLDINGS HOLDINGS NG HORMONE TSH SLEEP STD 19579 DIXIE COLIN AIRFLOW 7 MEM HOSP MEM HOSP HRT INC INC RATE&O2 SAT EFFORT UNATT COMPREHEN 62056 LAB ALTON LAB ALTON SIVE 7 [facility] METABOLIC [place] [address] LAB ALTON LAB ALTON TESTOSTER 7 [facility] [place] [address] LAB ALTON LAB ALTON ZINC 7 [facility] HOLDINGS HOLDINGS DEHYDROEP 82217 LAB ALTON LAB ALTON IANDROSTE 7 [facility] ASHLEY MICHAEL HOLDINGS HOLDINGS RADIOLOGI 68374 DIXIE COLIN C EXAM 7 MEM HOSP MEM HOSP CHEST 2 INC INC VIEWS FRONTAL&L ATERAL BLOOD 87383 D[facility]IE COLIN COUNT 7 [facility] COMPLETE INC INC AUTO&[place] [address] D[facility]IE COLIN TROPONIN 7 [facility] QUANTITAT INC INC ESTEBAN COMPREHEN 51442 D[facility]IE COLIN SIVE 7 [facility] METABOLIC INC INC PANEL ECG 63211 DIXIE ESPARZA ROUTINE 7 [facility] W/LEAST P 12 LDS I&R ONLY ECG 58303 DIXIE COLIN ROUTINE 7 [facility] ECG INC INC W/LEAST 12 LDS TRCG ONLY W/O I&R CREATINE 27254 DIXIE COLIN KINASE MB 7 [facility]OS[facility] FRACTION INC INC ONLY CREATINE 26986 D[facility]IE COLIN KINASE 7 [facility] TOTAL INC INC UNCLASSIF J3490 DIXIE COLIN IED DRUGS 7 [facility] INC INC UNCLASSIF J3490 DIXIE COLIN IED DRUGS 7 [facility] INC INC THER 07113 DIXIE COLIN PROPH/DX 7 [facility] NJX IV INC INC PUSH SINGLE/1S T SBST/DRUG ECG 14195 DIXIE COLIN ROUTINE 7 [facility] ECG INC INC W/LEAST 12 LDS TRCG ONLY W/O I&R ECG [address] [facility] ANJALI ROUTINE 7 PHYSICIAN ECG S GROUP W/LEAST 12 LDS I&R ONLY COMPREHEN 18335 D[facility]IE COLIN SIVE 7 [facility] [place] [address] DIXIE COLIN TROPONIN 7 [facility]OSP QUANTITAT INC INC ESTEBAN BLOOD 45308 DIXIE COLIN COUNT 7 [facility] COMPLETE INC INC AUTO&AUTO DIFRNTL WBC RADIOLOGI 32958 DIXIE COLIN C EXAM 7 [facility]OSP CHEST 2 INC INC VIEWS FRONTAL&L ATERAL ECG 40759 DIXIE SOSA JR ROUTINE 7 [facility] W/LEAST P 12 LDS I&R ONLY ECG 40566 DIXIE COLIN ROUTINE 7 [facility] ECG INC INC W/LEAST 12 LDS TRCG ONLY W/O I&R CREATINE 25063 [facility] COLIN KINASE 7 MEM H[facility] HOSP TOTAL INC INC CREATINE 89775 D[facility]IE COLIN KINASE MB 7 [facility]OS[facility] FRACTION INC INC ONLY UNCLASSIF J3490 D[facility]IE COLIN IED DRUGS 7 [facility]OS[facility] INC INC RADEX 18679 MIKE FINE ANKLE 6 COMPLETE MINIMUM 3 VIEWS RADEX 12154 MIKE FINE FOOT 6 COMPLETE MINIMUM 3 VIEWS [place] [address] [facility] ANJALI ROUTINE 6 PHYSICIAN MAT ECG S GROUP W/LEAST 12 LDS I&R ONLY ECG 92014 D[facility]IE COLIN ROUTINE 6 [facility]OS[facility] ECG INC INC W/LEAST 12 LDS TRCG ONLY W/O I&R LIPID 66026 Dave C CONRAD PANEL 6 [place] [address] LAB ALTON LAB ALTON TESTOSTER 6 [facility] ONE [employer]OTAL HOLDINGS HOLDINGS ECHO 69745 BRITNI LEYVA TRANSTHOR 6 MEDICAL LINDA C R-T 2D SERV W/WO FOUNDATIO M-MODE N REC F-UP/LMTD ECG [address] [facility] ANJALI ROUTINE 6 PHYSICIAN MAT ECG S GROUP W/LEAST 12 LDS I&R ONLY ECG 38974 [facility] COLIN ROUTINE 6 [facility] ECG INC INC W/LEAST 12 LDS TRCG ONLY W/O I&R CV STRS 43596 [facility] COLIN TST 6 [facility] XERS&/OR INC INC RX CONT ECG TRCG ONLY RADIOLOGI 50002 [facility] COLIN C EXAM 6 [facility] CHEST 2 INC INC VIEWS FRONTAL&[place] [address] D[facility] COLIN RETROPERI 6 [facility] TONEAL INC [place] [address] [place] NORIEGA ALL RETROPERI 6 MEDICAL TONEAL IMAGING REAL TIME ASS W/IMAGE LIMITED ECHO 58830 D[facility]IE COLIN TTHRC R-T 6 MEM [facility] 2D INC INC W/WOM-MOD E COMPL SPEC&COLR D ECG 62700 [facility] ANJALI ROUTINE 6 PHYSICIAN MAT ECG S GROUP W/LEAST 12 LDS I&R ONLY ECG 89875 [facility] COLIN ROUTINE 6 [facility] H[facility] ECG INC INC W/LEAST 12 LDS TRCG ONLY W/O I&R ECG 24338 A C KILPELA ROUTINE 6 STUART ESPANA JEA ECG PSC W/LEAST 12 LDS W/I&R BLOOD 76289 A C CONRAD COUNT 6 STUART ESPANA JEA COMPLETE PSC AUTO&AUTO DIFRNTL WBC HEMOGLOBI 80025 A C KILPELA N 6 STUART ESPANA JEA GLYCOSYLA PSC ISABELLE A1C Encounters Encounter Start End Date Code Location Performer Type Date HOSPITAL DIXIE - 7 7 [facility] OUTPATIEN INC T OFFICE 93866 A Omer CISNEROS OUTPATIEN 7 7 STUART ESPANA T VISIT PSC 15 MINUTES EMERGENCY 94346 D[facility]IE 7 7 [facility] DEPARTMEN INC T VISIT HIGH/URGE NT SEVERITY HOSPITAL DIXIE - 7 7 [facility] OUTPATIEN INC T OFFICE [address] [facility] ANJALI OUTPATIEN 7 7 PHYSICIAN T VISIT S GROUP 25 MINUTES HOSPITAL DIXIE - 7 7 [facility] OUTPATIEN INC T HOSPITAL DIXIE - 7 7 [facility] OUTPATIEN INC T EMERGENCY 20587 [facility] 7 7 [facility] DEPARTMEN INC T VISIT HIGH/URGE NT SEVERITY OFFICE 85792 MIKE FINE OUTPATIEN 6 6 T NEW 30 MINUTES OFFICE [address] [facility] STONE OUTPATIEN 6 6 PHYSICIAN T VISIT GROUP 25 [address]ES OFF[address] [facility] ANJALI OUTPATIEN 6 6 PHYSICIAN MAT T VISIT S GROUP 25 MINUTES HOSPITAL DIXIE - 6 6 [facility] OUTPATIEN INC T OFFICE 26954 A C KILPELA OUTPATIEN 6 6 STUART DAEN T VISIT PSC 25 MINUTES OFFICE 17003 A C TAMIKAP[place]A OUTPATIEN 6 6 STUART ADEN T VISIT [facility] 15 MINUTES HOSPITAL DIXIE - 6 6 [facility] OUTPATIEN INC T OFFICE [address] [facility] ANJALI OUTPATIEN 6 6 PHYSICIAN RIKKI Faustin VISIT S GROUP 25 MINUTES HOSPITAL DIXIE - 6 6 [facility] OUTPATIEN INC T OFFICE 60329 A C T[place] OUTPATIEN 6 6 STUART ADEN T VISIT [facility] [address]ES [address] [facility] ANJALI OUTPATIEN 6 6 PHYSICIAN RIKKI Faustin NEW 45 S GROUP MINUTES HOSPITAL DIXIE - 6 6 [facility] OUTPATIEN INC T
--- OUTSIDE RECORDS SUMMARY | 2017-02-24 22:34 | External Medical Summary Rpt ---
Demographics Preferred Language Greek Marital Status Unknown Mosque Affiliation Unknown Race Unknown Ethnic Group Unknown Author Author PRAVIN Address Unknown Phone Immunization No patient found.
--- OUTSIDE RECORDS SUMMARY | 2017-02-24 22:34 | External Medical Summary Rpt ---
Author Author , PRAVIN COSTELLO Address Unknown Phone [email or web address] Care Team Providers Care Special Needs Caregiver Name Role Phone A Omer DAVIDSON MD PSC, Dave Unavailable Unavailable Omer DAVIDSON MD PSC [facility] Unavailable Unavailable BESSON, BESSON Unavailable Unavailable NORIEGA, NORIEGA Unavailable Unavailable NORIEGA ALL, NORIEGA ALL Unavailable Unavailable FINE, FINE Unavailable Unavailable CISNEROS, CISNEROS Unavailable Unavailable [facility] Un[facility] Un[facility], [facility] Unavailable Unavailable HOSPITAL P, [facility], [facility]available [facility]available [facility], Unavailable Unavailable [facility] Unavailable Unavailable [facility], [facility] KILPELA JEA, KILPELA Unavailable Unavailable KEIKO MCKEON, [employer] Unavailable Unavailable [facility] Unavailable Unavailable [facility]INGS, [facility] Unavailable Unavailable HOLDINGS, [facility] IAN PARRY, IAN PARRY Unavailable Unavailable ANJALI, ANJALI Unavailable Unavailable [facility]JAL[facility] [...] [facility] R079 CHEST PAIN 09-29-2016 [place] [facility]PEC[facility] [id number] ADVERS EFF 09-29-2016 [place] [facility] RX [facility] SUBSTANCES INIT ENC [id number] UNS PLACE 09-29-2016 D[facility]IE UNS NON [facility] P PLACE OF OCCUR EXT Z720 TOBACCO USE 09-29-2016 [facility] R400 SOMNOLENCE 09-18-2016 [facility] R7989 OTHER SPEC 09-18-2016 [facility] ABNORMAL PHYSICIANS FINDINGS GROUP BLOOD CHEMISTRY R931 ABNORMAL 09-18-2016 [facility] F[facility] PHYSICIANS DX IMAGING GROUP HEART & COR CIRC [id number] PAIN IN 07-08-2016 [facility] UNSPECIFIED ANKLE M2570 OSTEOPHYTE 07-08-2016 [facility] UNSPECIFIED JOINT M7730 CALCANEAL 07-08-2016 MIKE SPUR UNSPECIFIED FOOT [id number] PAIN IN 07-08-2016 MIEK RIGHT FOOT J020 STREPTOCOCC 06-23-2016 [facility] AL PHYSICIAN PHARYNGITIS GROUP 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-26-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[facility] SEVERE PHYSICIANS OBESITY DUE GROUP TO EXCESS CALORIES G4700 INSOMNIA 04-18-2016 A Omer DAVIDSON UNSPECIFIED PSC R635 ABNORMAL 04-18-2016 A Omer DAVIDSON WEIGHT GAIN PSC E785 HYPERLIPIDE 04-05-2016 [facility] UNSPECIFIED HOLDINGS 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 03-21-2016 [place] [facility] INSUFFICIEN CY I361 NONRHEUMATI 03-21-2016 [place] [facility] TRICUSPID SERV [facility] INSUFFICIEN CY I371 NONRHEUMATI 03-21-2016 [place] [facility] PULMONARY SERV [facility] INSUFFICIEN CY R0602 SHORTNESS 03-21-2016 [facility] MEDICAL IMAGING ASS E669 OBESITY 03-19-2016 [facility] UNSPECIFIED PHYSICIANS GROUP Medications Na ND [...] B VE 00 05 30 30 00 OK Ac NL 09 -0 -0 .0 00 L- ti AF 37 5- 2- 00 07 MA ve AX 38 20 20 48 RT IN 45 17 17 04 E 6 58 PH HC AR L MA ER CY 37 #5 .5 91 MG CA P LO 68 05 30 30 00 OK Ac SA 18 -0 -0 .0 00 L- ti RT 00 5- 2- 00 07 MA ve AN 21 20 20 48 RT -H [address] 9 57 PH Z AR 10 MA 0- CY 25 #5 MG 91 TA B LO 68 04 30 30 00 OK Ac SA 18 -1 -0 .0 00 L- ti RT 00 2- 5- 00 07 MA ve AN 21 20 20 44 RT -H [address] 9 55 PH Z AR 10 MA 0- CY 25 #5 MG 91 TA B VE 00 04 30 30 00 OK Ac NL 09 -0 -2 .0 00 L- ti AF 37 4- 8- 00 07 MA ve AX 38 20 20 48 RT IN 45 17 17 04 E 6 58 PH HC AR L MA ER CY 37 #5 .5 91 MG CA P LO 68 03 30 30 00 OK Ac SA 18 -1 -0 .0 00 L- ti RT 00 1- 7- 00 07 MA ve AN 21 20 20 44 RT -H [address] 9 55 PH Z AR 10 MA 0- CY 25 #5 MG 91 TA B BU 45 01 30 00 OK Ac IL 96 -2 -2 .0 00 L- ti OP 30 8- 4- 00 07 MA ve IO 14 20 20 44 RT N 20 17 17 39 HC 5 72 PH L AR XL MA CY 30 0 #5 MG 91 TA BL ET LO 68 01 30 00 OK Ac SA 18 -2 -2 .0 00 L- ti RT 00 8- 4- 00 07 MA ve AN 21 20 20 44 RT -H [address] 9 55 PH Z AR 10 MA 0- CY 25 #5 MG 91 TA B Procedures Procedure DOS Code Location Performer Comment [facility] E0601 ANJEL BINGHAMRELL S 7 HOME HOME POSITIVE MEDICAL MEDICAL AIRWAY EQUIPME EQUIPME PRESSURE DEVICE FULL FACE A7030 ANJEL BINGHAMRELL MASK 7 HOME HOME USED MEDICAL MEDICAL W/POS EQUIPME EQUIPME ARWAY PRESS DEVICE EA FILTER A7038 ANJEL HOBBS DISPBL 7 HOME HOME USED MEDICAL MEDICAL W/POS EQUIPME EQUIPME ARWAY PRESSURE DEVICE FILTER A7039 ANJEL HOBBS NON 7 HOME HOME DISPBL MEDICAL MEDICAL USED EQUIPME EQUIPME W/POS ARWAY PRESS DEVICE CONTINUOU E0601 ANJEL HOBBS S 7 HOME HOME POSITIVE MEDICAL MEDICAL AIRWAY EQUIPME EQUIPME PRESSURE DEVICE HEADGEAR A7035 ANJEL HOBBS USED 7 HOME HOME W/POSITIV MEDICAL MEDICAL E AIRWAY EQUIPME EQUIPME PRESSURE DEVICE TUBING A7037 ANJEL HOBBS USED WITH 7 HOME HOME POSITIVE MEDICAL MEDICAL AIRWAY EQUIPME EQUIPME PRESSURE DEVICE HUMDIFIR E0562 ANJEL HOBBS HEATED 7 HOME HOME USED MEDICAL MEDICAL W/POS EQUIPME EQUIPME ARWAY PRESSURE DEVICE GONADOTRO 48008 LAB [facility] LAB [facility] PIN 7 [facility] FOLLICLE HOLDINGS HOLDINGS STIMULATI NG HORMONE GONADOTRO 92328 LAB [facility] LAB ALTON PIN 7 [facility] LUTEINIZI HOLDINGS HOLDINGS NG HORMONE DEHYDROEP 15966 LAB AL[facility] LAB ALTON IANDROSTE 7 [facility] [place] [address] LAB ALTON LAB ALTON TESTOSTER [address] [facility] FREE HOLDINGS HOLDINGS COMPREHEN 21285 LAB [facility] AL[facility] SIVE 7 [facility] METABOLIC HOLDINGS HOLDINGS PANEL COLLECTIO 15021 Dave Coelho VENOUS 7 STUART ESP[place] [address] LAB [facility] LAB ALTON FREE 7 [facility] [place] [address] LAB AL[facility] LAB ALTON THYROID 7 [facility] STIMULATI HOLDINGS HOLDINGS NG HORMONE TSH SLEEP STD 57740 DIXIE COLIN AIRFLOW 7 MEM HOSP MEM HOSP HRT INC INC RATE&O2 [place] [address] LAB ALTON LAB ALTON TESTOSTER 7 [facility] [place] [address] LAB AL[facility] LAB [facility] ZINC 7 [place] [address] D[facility]IE COLIN TROPONIN 7 MEM HOS[facility] MEM HOSP QUANTITAT INC INC ESTEBAN UNCLASSIF J3490 D[facility]IE COLIN IED DRUGS 7 [facility]OS[facility] INC INC CREATINE 32860 D[facility] COLIN KINASE MB 7 MEM H[facility] MEM HOSP FRACTION INC INC ONLY BLOOD 38705 [facility] COLIN COUNT 7 [facility] HOSP COMPLETE INC INC AUTO&AUTO DIFRNTL WBC COMPREHEN 99722 [facility] COLIN SIVE 7 [facility] METABOLIC INC INC PANEL ECG 22535 [facility] COLIN ROUTINE 7 [facility] ECG INC INC W/LEAST 12 LDS TRCG ONLY W/O I&R CREATINE 37493 D[facility]IE COLIN KINASE 7 MEM HOS[facility] TOTAL INC INC ECG 61473 DIXIE ESPARZA ROUTINE 7 [facility] W/LEAST P 12 LDS I&R ONLY RADIOLOGI 53399 [facility] C EXAM 7 MEDICAL CHEST 2 IMAGING VIEWS ASS FRONTAL&L ATERAL ECG 59719 [facility] ANJALI ROUTINE 7 PHYSICIAN ECG S GROUP W/LEAST 12 LDS I&R ONLY UNCLASSIF J3490 [facility]IE COLIN IED DRUGS 7 [facility]OS[facility] INC INC ECG 86534 [facility] COLIN ROUTINE 7 [facility] ECG INC INC W/LEAST 12 LDS TRCG ONLY W/O I&R THER 88877 [facility] COLIN PROPH/DX 7 [facility] NJX IV INC INC PUSH SINGLE/1S T SBST/DRUG ECG 17044 [facility] COLIN ROUTINE 7 [facility]OS[facility] ECG INC INC W/LEAST 12 LDS TRCG ONLY W/O I&R CREATINE 63157 [facility] COLIN KINASE 7 [facility]OS[facility] TOTAL INC INC UNCLASSIF J3490 DIXIE COLIN IED DRUGS 7 [facility] INC INC ECG 91955 DIXIE SOSA JR ROUTINE 7 [facility] W/LEAST P 12 LDS I&R ONLY RADIOLOGI 56193 [facility] EXAM 7 MEDICAL CHEST 2 IMAGING VIEWS ASS FRONTAL&L ATERAL CREATINE 10369 DIXIE COLIN KINASE MB 7 MEM H[facility]OS[facility] FRACTION INC INC ONLY COMPREHEN 47740 DIXIE COLIN SIVE 7 [facility] [address] D[facility]IE COLIN TROPONIN 7 MEM HOSP [facility] QUANTITAT INC INC ESTEBAN BLOOD 87015 D[facility]IE COLIN COUNT 7 [facility] H[facility] COMPLETE INC INC AUTO&AUTO DIFRNTL WBC RADEX 71834 MIKE FINE ANKLE 6 COMPLETE MINIMUM 3 VIEWS RADEX 04319 MIKE FINE FOOT 6 COMPLETE MINIMUM 3 VIEWS ECG 50888 [facility] ANJALI ROUTINE 6 PHYSICIAN MAT ECG S GROUP W/LEAST 12 LDS I&R ONLY ECG 80548 [facility] COL[facility] ROUTINE 6 [facility]OS[facility] ECG INC INC W/LEAST 12 LDS TRCG ONLY W/O I&R LIPID 49544 Dave C CONRAD PANEL [address] [place] [address] LAB ALTON LAB ALTON TESTOSTER 6 [facility] ONE TOTAL HOLDINGS HOLDINGS ECHO 09383 BRITNI LEYVA TRANSTHOR 6 [facility] C R-T 2D SERV W/WO FOUNDATIO M-MODE N REC F-UP/LMTD ECG 96568 [facility] ANJALI ROUTINE 6 PHYSICIAN MAT ECG S GROUP W/LEAST 12 LDS I&R ONLY ECG 96377 [facility] ROUTINE 6 [facility] ECG INC INC W/LEAST 12 LDS TRCG ONLY W/O I&R CV STRS 43320 [facility] COLIN TST 6 [facility] XERS&/OR INC INC RX CONT ECG TRCG ONLY RADIOLOGI 15599 DIXIE DIXIE C EXAM 6 [facility] CHEST 2 INC INC VIEWS FRONTAL&L ATERAL ECHO 31817 [facility]IE COLIN TTHRC R-T 6 [facility] 2D INC INC W/WOM-MOD E COMPL SPEC&[place] [address] D[facility]IE COLIN RETROPERI 6 [facility] TONEAL INC [place] W/[place] [address] [place] NORIEGA ALL RETROPERI 6 MEDICAL TONEAL IMAGING REAL TIME ASS W/IMAGE LIMITED ECG 04119 [facility] ANJALI ROUTINE 6 PHYSICIAN MAT ECG S GROUP W/LEAST 12 LDS I&R ONLY ECG 60713 [facility] COLIN ROUTINE 6 [facility] ECG INC INC W/LEAST 12 LDS TRCG ONLY W/O I&R ECG 58395 A C KILPELA ROUTINE 6 STUART ESPANA JEA ECG PSC W/LEAST 12 LDS W/I&R HEMOGLOBI 49895 A C TAMIKAPELA N 6 STUART ESPANA JEA GLYCOSYLA PSC ISABELLE A1C BLOOD 57405 A C CONRAD COUNT 6 STUART ESPANA JEDave COMPLETE PSC AUTO&AUTO DIFRNTL WBC Encounters Encounter Start End Date Code Location Performer Type Date [facility] DIXIE - 7 7 [facility] OUTPATIEN INC T OFFICE 55216 A Omer CISNEROS OUTPATIEN 7 7 [facility] ESP[facility] T VISIT PSC 15 MINUTES [facility] DIXIE - 7 7 [facility] OUTPATIEN INC T EMERGENCY 50341 DIXIE 7 7 [facility]IGH/URGE NT SEVERITY [facility] DIX[facility] - 7 7 [facility] T OFFICE [id number] [facility] ANJALI OUTPATIEN 7 7 PHYSICIAN T VISIT S GROUP 25 MINUTES HOSPITAL DIXIE - 7 7 [facility] OUTPATIEN INC T EMERGENCY 92890 DIXIE 7 7 [facility] HIGH/URGE NT SEVERITY OFFICE 18424 [facility] OUTPATIEN 6 6 T NEW 30 MINUTES OFFICE 40417 [facility] STONE OUTPATIEN 6 6 PHYSICIAN T VISIT GROUP 25 MINUTES OFFICE 97927 [facility] ANJALI OUTPATIEN 6 6 PHYSICIAN MAT T VISIT S GROUP 25 MINUTES HOSPITAL DIXIE - 6 6 [facility] OUTPATIEN INC T OFFICE 30147 A C CONRAD OUTPATIEN 6 6 STUART ADEN T VISIT PSC 25 MINUTES OFFICE 29239 A Omer MARTINES OUTPATIEN 6 6 STUART ADEN T VISIT [facility] 15 MINUTES HOSPITAL DIXIE - 6 6 [facility] T OFFICE [id number] [facility] ANJALI OUTPATIEN 6 6 PHYSICIAN MAT T VISIT S GROUP 25 MINUTES [facility] DIXIE - 6 6 [facility] T OFFICE 01863 A C JALA OUTPATIEN 6 6 STUART ADEN T VISIT [facility] 15 MINUT[facility] DIXIE - 6 6 [facility] OUTPATIEN [facility] T OFFICE 40790 [facility] ANJALI OUTPATIEN 6 6 PHYSICIAN MAT T NEW 45 S GROUP MINUTES
--- OUTSIDE RECORDS SUMMARY | 2017-02-24 22:34 | External Medical Summary Rpt ---
Author Author , PRAVIN COSTELLO Address Unknown Phone [email or web address] Care Team Providers [employer] Name Role Phone A Omer DAVIDSON MD PSC, Dave Unavailable Unavailable Omer DAVIDSON MD PSC RADU LOVELACE Unavailable Unavailable BESSON, BESSON Unavailable Unavailable NORIEGA, NORIEGA Unavailable Unavailable NORIEGA ALL, NORIEGA ALL Unavailable Unavailable FINE, FINE Unavailable Unavailable CISNEROS, CISNEROS Unavailable Unavailable [facility] Un[facility] Un[facility], [facility] Unavailable Unavailable HOSPITAL P, [facility], Unavailable [facility]available [facility], Unavailable Unavailable [facility], [facility] KILPELA JEA, KILPELA Unavailable [...] [facility] R079 CHEST PAIN 09-29-2016 [facility] [id number] ADVERS EFF 09-29-2016 [facility] OTH RX [facility] SUBSTANCES INIT ENC Q02849 UNS PLACE 09-29-2016 [facility] UNS NON [facility] P PLACE OF OCCUR EXT Z720 TOBACCO USE 09-29-2016 [facility] R400 SOMNOLENCE 09-18-2016 [facility] R7989 OTHER SPEC 09-18-2016 [facility] ABNORMAL PHYS[facility]IANS FINDINGS GROUP BLOOD CHEMISTRY R931 ABNORMAL 09-18-2016 [facility] F[facility] ON [facility]YSICIANS DX IMAGING GROUP HEART & COR CIRC [id number] PAIN IN 07-08-2016 [facility] UNSPECIFIED ANKLE M2570 OSTEOPHYTE 07-08-2016 [facility] UNSPECIFIED JOINT M7730 CALCANEAL 07-08-2016 [facility] SPUR UNSPECIFIED FOOT [id number] PAIN IN 07-08-2016 [facility] RIGHT FOOT J020 STREPTOCOCC 06-23-2016 [facility] AL PHYSICIAN PHARYNGITIS GROUP 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-26-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 DUE GROUP TO EXCESS CALORIES G4700 INSOMNIA 04-18-2016 A Omer DAVIDSON UNSPECIFIED PSC R635 ABNORMAL 04-18-2016 A Omer DAVIDSON WEIGHT GAIN PSC E785 HYPERLIPIDE 04-05-2016 [facility] UNSPECIFIED HOLDINGS 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 03-21-2016 [facility]RAL [facility] INSUFFICIEN CY I361 NONRHEUMATI 03-21-2016 [facility] TRICUSPID SERV [facility] INSUFFICIEN CY I371 NONRHEUMATI 03-21-2016 [facility] PULMONARY SERV [facility] INSUFFICIEN CY R0602 SHORTNESS 03-21-2016 [facility] E669 OBESITY 03-19-2016 [facility] UNSPECIFIED PHYSICIANS GROUP Medications Na ND [...] B VE 00 05 30 30 00 VT Ac NL 09 -0 -0 .0 00 L- ti AF 37 5- 2- 00 07 MA ve AX 38 20 20 48 RT IN 45 17 17 04 E 6 58 PH HC AR L MA ER CY 37 #5 .5 91 MG CA P LO 68 05 30 30 00 VT Ac SA 18 -0 -0 .0 00 L- ti RT 00 5- 2- 00 07 MA ve AN 21 20 20 48 RT -H [address] 9 57 PH Z AR 10 MA 0- CY 25 #5 MG 91 TA B LO 68 04 30 30 00 VT Ac SA 18 -1 -0 .0 00 L- ti RT 00 2- 5- 00 07 MA ve AN 21 20 20 44 RT -H [address] 9 55 PH Z AR 10 MA 0- CY 25 #5 MG 91 TA B VE 00 04 30 30 00 VT Ac NL 09 -0 -2 .0 00 L- ti AF 37 4- 8- 00 07 MA ve AX 38 20 20 48 RT IN 45 17 17 04 E 6 58 PH HC AR L MA ER CY 37 #5 .5 91 MG CA P LO 68 03 30 30 00 VT Ac SA 18 -1 -0 .0 00 L- ti RT 00 1- 7- 00 07 MA ve AN 21 20 20 44 RT -H [address] 9 55 PH Z AR 10 MA 0- CY 25 #5 MG 91 TA B BU 45 01 30 00 VT Ac RI 96 -2 -2 .0 00 L- ti OP 30 8- 4- 00 07 MA ve IO 14 20 20 44 RT N 20 17 17 39 HC 5 72 PH L AR XL MA CY 30 0 #5 MG 91 TA BL ET LO 68 01 30 00 VT Ac SA 18 -2 -2 .0 00 L- ti RT 00 8- 4- 00 07 MA ve AN 21 20 20 44 RT -H [address] 9 55 PH Z AR 10 MA 0- CY 25 #5 MG 91 TA B Procedures Procedure DOS Code Location Performer Comment [facility] E0601 ANJEL BINGHAMRELL S 7 HOME HOME [...] W/POS EQUIPME EQUIPME ARWAY PRESSURE DEVICE GONADOTRO 65976 [facility] PIN 7 [facility] FOLLICLE [facility] HOLDINGS STIMULATI NG HORMONE GONADOTRO 61925 [facility] PIN 7 [facility] [facility] LUTEINIZI HOLDINGS HOLDINGS NG HORMONE DEHYDROEP 39671 [facility] LAB [facility] IANDROSTE 7 [facility] [employer] [place] [address] LAB [facility] LAB [facility] TESTOSTER 7 [facility] HOLDINGS COMPREHEN 91868 LAB [facility] LAB AL[facility] SIVE 7 [facility] [facility] METABOLIC HOLD[facility] HOLDINGS PANEL COLLECTIO 84822 Dave Coelho VENOUS 7 STUART [place] [address] [facility] FREE 7 [facility] [place] [address] LAB [facility] LAB [facility] THYROID 7 [facility] [employer] [facility] STIMULATI HOLDINGS HOLDINGS NG HORMONE TSH SLEEP STD 38270 [facility] AIRFLOW 7 [facility] HRT INC INC RATE&O2 [place] [address] LAB AL[facility] LAB ALTON TESTOSTER 7 [facility] [place] [address] LAB [facility] LAB AL[facility] ZINC 7 [place] [address] [facility] TROPONIN 7 [facility] QUANTITAT INC INC ESTEBAN UNCLASSIF J3490 [facility] IED DRUGS 7 [facility] INC INC CREATINE 78706 [facility] KINASE MB 7 [facility] FRACTION INC INC ONLY BLOOD 34168 [facility] COUNT 7 [facility] COMPLETE INC INC AUTO&AUTO DIFRNTL WBC COMPREHEN 20972 [facility] SIVE 7 [facility] METABOLIC INC INC PANEL ECG 83590 [facility] ROUTINE 7 [facility] ECG INC INC W/LEAST 12 LDS TRCG ONLY W/O I&R CREATINE 20095 [facility] KINASE 7 [facility] TOTAL INC INC ECG 40348 [facility] ESPARZA ROUTINE 7 [facility] W/LEAST P 12 LDS I&R ONLY RADIOLOGI 36935 [facility] C EXAM 7 MEDICAL CHEST 2 IMAGING VIEWS ASS FRONTAL&L ATERAL ECG 65895 [facility] ANJAL[facility] ROUTINE 7 PHYSICIAN ECG S GROUP W/LEAST 12 LDS I&R ONLY UNCLASSIF J3490 [facility] IED DRUGS 7 [facility]OS[facility] INC INC ECG 00526 [facility] ROUTINE 7 [facility] ECG INC INC W/LEAST 12 LDS TRCG ONLY W/O I&R THER 34375 [facility] PROPH/DX 7 [facility] NJX IV INC INC PUSH SINGLE/1S T SBST/DRUG ECG 95130 [facility] ROUTINE 7 [facility]OS[facility] ECG INC INC W/LEAST 12 LDS TRCG ONLY W/O I&R CREATINE 61658 [facility] KINASE 7 [facility]OS[facility] TOTAL INC INC UNCLASSIF J3490 [facility] IED DRUGS 7 [facility] INC INC ECG 08940 [facility] SOSA JR ROUTINE 7 [facility] W/LEAST P 12 LDS I&R ONLY RADIOLOGI 65579 PSYCHIATRIC EXAM 7 MEDICAL CHEST 2 IMAGING VIEWS ASS FRONTAL&L ATERAL CREATINE 15212 [facility] KINASE MB 7 [facility] FRACTION INC INC ONLY COMPREHEN 92542 D[facility] SIVE 7 [facility] [place] [address] [facility] TROPONIN 7 MEM H[facility] QUANTITAT INC INC ESTEBAN BLOOD 34976 [facility] COUNT 7 [facility] COMPLETE INC INC AUTO&AUTO DIFRNTL WBC RADEX 55457 MIKE FINE ANKLE 6 COMPLETE MINIMUM 3 VIEWS RADEX 01819 MIKE FINE FOOT 6 COMPLETE MINIMUM 3 VIEWS ECG 49607 [facility] ANJALI ROUTINE 6 PHYSICIAN MAT ECG S GROUP W/LEAST 12 LDS I&R ONLY ECG 83362 [facility] ROUTINE 6 [facility] ECG INC INC W/LEAST 12 LDS TRCG ONLY W/O I&R LIPID 22919 Dave C CONRAD PANEL 6 [place] [address] LAB ALTON LAB ALTON TESTOSTER 6 ASHLEY ASHLEY ONE TOTAL HOLDINGS HOLDINGS ECHO 21206 BRITNI LEYVA TRANSTHOR 6 [facility] C R-T 2D SERV W/WO FOUNDATIO M-MODE N REC F-UP/LMTD ECG 49140 [facility] AN[facility] ROUTINE 6 PHYSICIAN MAT ECG S GROUP W/LEAST 12 LDS I&R ONLY ECG 50570 [facility] ROUTINE 6 [facility] ECG INC INC W/LEAST 12 LDS TRCG ONLY W/O I&R CV STRS 61125 [facility] TST 6 [facility] XERS&/OR INC INC RX CONT ECG TRCG ONLY RADIOLOGI 08871 D[facility] DIXIE C EXAM 6 [facility] CHEST 2 INC INC VIEWS FRONTAL&L ATERAL ECHO 77017 [facility] TTHRC R-T 6 [facility] 2D INC INC W/WOM-MOD E COMPL SPEC&[place] [address] [facility] RETROPERI 6 [facility] TONEAL INC [place] [address] [place] NORIEGA ALL RETROPERI 6 MEDICAL TONEAL IMAGING REAL TIME ASS W/IMAGE LIMITED ECG 55125 [facility] ANJALI ROUTINE 6 PHYSICIAN MAT ECG S GROUP W/LEAST 12 LDS I&R ONLY ECG 37042 [facility] ROUTINE 6 [facility] ECG INC INC W/LEAST 12 LDS TRCG ONLY W/O I&R ECG 67695 A C KILPELA ROUTINE 6 STUART ESPANA JEA ECG PSC W/LEAST 12 LDS W/I&R HEMOGLOBI 27529 A C TAMIKAPELA N 6 STUART ESP[facility] JEA GLYCOSYLA PSC ISABELLE A1C BLOOD 27336 A C CONRAD COUNT 6 STUART ESPANA JEDave COMPLETE PSC AUTO&AUTO DIFRNTL WBC Encounters Encounter Start End Date Code Location Performer Type Date [facility] DIXIE - 7 7 [facility] OUTPATIEN INC T OFFICE 89147 A Omer CISNEROS OUTPATIEN 7 7 STUART ESP[facility] T VISIT PSC 15 MINUTES HOSPITAL DIXIE - 7 7 [facility] OUTPATIEN INC T EMERGENCY 36091 DIXIE 7 7 [facility] HIGH/URGE NT SEVERITY [facility]OS[facility]IXIE - 7 7 [facility] OUTPATIEN INC T OFFICE 88637 [facility] ANJALI OUTPATIEN 7 7 PHYSICIAN T VISIT S GROUP 25 MINUTES HOSPITAL DIXIE - 7 7 [facility] OUTPATIEN INC T EMERGENCY 83906 DIXIE 7 7 [facility] T VISIT HIGH/URGE NT SEVERITY OFFICE 80494 MIKE FINE OUTPATIEN 6 6 T NEW 30 MINUTES OFFICE 13283 [facility] STONE OUTPATIEN 6 6 PHYSICIAN T VISIT GROUP 25 MINUTES OFFICE 12126 [facility] ANJALI OUTPATIEN 6 6 PHYSICIAN MAT T VISIT S GROUP 25 MINUTES HOSPITAL DIXIE - 6 6 [facility] OUTPATIEN INC T OFFICE 15781 A C CONRAD OUTPATIEN 6 6 STUART ADEN T VISIT PSC 25 MINUTES OFFICE 99437 A Omer MARTINES OUTPATIEN 6 6 STUART ADEN T VISIT [facility] 15 MINUTES HOSPITAL DIXIE - 6 6 [facility] OUTPATIEN [facility] T OFFICE 38921 [facility] ANJALI OUTPATIEN 6 6 PHYSICIAN MAT T VISIT S GROUP 25 MINUTES [facility] DIXIE - 6 6 [facility] OUTPATIEN [facility] T OFFICE 96187 A C JALA OUTPATIEN 6 6 STUART ADEN T VISIT [facility] 15 MINUTES [facility] DIXIE - 6 6 [facility] OUTPATIEN [facility] T OFFICE 86993 [facility] ANJALI OUTPATIEN 6 6 PHYSICIAN MAT T NEW 45 S GROUP MINUTES
--- OUTSIDE RECORDS SUMMARY | 2017-02-24 22:34 | External Medical Summary Rpt ---
Demographics Preferred Language Amharic Marital Status Unknown Presybeterian Affiliation Unknown Race Unknown Ethnic Group Unknown Author Author PRAVIN Address Unknown Phone Immunization No patient found.
--- OUTSIDE RECORDS SUMMARY | 2017-02-24 22:35 | External Medical Summary Rpt ---
Author Author PRAVIN Pham, [employer] Organization [employer] Address Unknown Phone Unavailable
== END 2017-02-24 17:23 | disposition home or self-care (01) ==
LOC: UTC 16:14
DX: J06.9 Acute upper respiratory infection, unspecified (principal); I10 Essential (primary) hypertension; F41.9 Anxiety disorder, unspecified

== ENCOUNTER 2017-05-18 17:13 | Observation (INO) | payer MEDICAID ==
[~2017-05-18] VITALS: Ht 193 cm; Wt 166.0 kg
[~2017-05-18 17:13] MED LIST changes: +CHLORASEPTIC S177 ML MM; +MEDROL 4MG. DOSE4 MG PO; +ZITHROMAX Z PA250 MG PO
[2017-05-18 17:14] VITALS: BP 196/114
--- NOTE | 2017-05-18 17:32 | Emergency Room Report ---
History of Present Illness Time Seen by [id number] Presenting Problem in Triage Pt arrived:Walked Presenting Problem:PT REPORTS WENT TO [facility] TODAY R/T HAVING A FEVER X3 DAYS AND FEELING RUN DOWN. [facility] SENT PT TO ER R/T ELEVATED BP AND PT REPORTING CHEST PAIN. PT REPORTS HAS BEEN HAVING CHEST PAIN INTERMITTENTLY FOR A COUPLE MONTHS, SATES PAIN IS SHARP ON L SIDE OF CHEST AND PRESSURE IN MIDSTERNAL AREA. 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 Y Clinical Suspician of Infection? N Mental Status: 1 - Regular (Normal Baseline) Sepsis Risk:Possible Sepsis Risk Have you (or family members/close friends) recently traveled outside the [place]? N If Yes, where/when: Have you had exposure to infectious disease within the past month? N TB? Other? Specify: . 37 years old white male with obesity and hypertension, he has been noncompliant with his blood pressure medication, he has been experiencing frontal and temporal headache for the last 4 days, also intermittent chest pain sharp in character LEFT inframammary for the past months or so. He doesn't feed well getting weaker shortness of breath and palpitations. Went to [facility] and was found to have elevated blood pressure 190/110 mmhg so he was sent to the ED. Source patient, RN notes reviewed Exam Limitations no limitations ALLERGIES Coded Allergies: Penicillins (09/17/16) codeine (09/17/16) Home Medications Reported Medications LOSARTAN/HYDROCHLOROTHIAZIDE (Losartan-Hctz 100-25 MG Tab) 1 TAB PO DAILY #30 ASPIRIN (Aspirin) 81 MG PO DAILY History Medical History General CAD? No Angina: No [place]: No Hypertension? Yes Hyperlipidemia? No CHF? No DVT? No PE? No COPD? No Asthma? No Anemia? No GERD? No Gastric ulcers? No GI Bleed? No Hernia? No Thyroid Problems? No Hypothyroidism? No CVA? No Seizures? No Diabetes? No Renal Insuffiency? No End Stage Renal Disease? No UTI? No Stones? No BPH? No GB Disease: No Nephritic Syndrome? No Asplenia? No Hepatitis? No Sickle Cell Disease? No Arthritis? No Migraines? Yes Cataracts? No Glaucoma? No MRSA? No HIV? No TB? No Anxiety? Yes Depression? No Cancer? No More? No Immunization Hx DT/Tetanus 5-10 YRS Surgical Hx Previous Surgery?N Social History Smoking Hx Smoker: Never Smoker Tobacco: No Packs/day N/A Alcohol Alcohol: Yes Review of Systems All Other Systems Reviewed and Negative Constitutional see HPI Eyes no symptoms reported ENT no symptoms reported. Respiratory no symptoms reported Cardiovascular chest pain Gastrointestinal no symptoms reported Genitourinary no symptoms reported. Musculoskeletal no symptoms reported Skin no symptoms reported Physical Exam Vital Signs Vital Signs Date Time Temp Pulse Resp B/P Pulse O2 O2 Flow FiO2 Ox Delivery Rate 05/18 1843 96 20 145/87 97 05/18 1753 104 20 168/98 94 05/18 1714 99.6 109 20 196/114 96 - WBC >12,000 or <4,000 or 10% bands? 2 or more SIRS Criteria Met? B/P:196/114 MAP:141 Creatinine >2.0? UA output<0.5ml/kg/hr for 2 hrs? Platelet count >100,000? Lactate >2.0mmol/1? INR >1.2 or PTT > than 60 sec? Evidence of Organ Dysfunction? Provider documented clinical suspician of infection? N Sepsis Criteria Count: 2 Sepsis Risk: Possible Sepsis Risk General Appearance normal appearance, WD/WN Eye Exam - bilateral eye normal exam, bilateral eye PERRL, bilateral eye EOMI Ear, Nose, Throat hearing grossly normal, normal ENT inspection Neck normal inspection, non-tender, supple, full range of motion Respiratory Status Yes: trachea midline, chest symmetrical, non tender chest. No: respiratory distress. Lung Sounds bilateral: normal breath sounds, lungs clear. 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 No Results/Orders Laboratory Tests 05/18/17 1720: Lactic Acid 1.4 05/18/17 1720: B-Natriuretic Peptide 11 05/18/17 1720: Sodium 137, Potassium 3.3 L, Chloride 100, Carbon Dioxide 28, BUN 9, Creatinine 0.9, Estimated Creat Clear 255 H, Estimated GFR (MDRD) 95, Glucose 114 H, Calcium 8.7, Total Bilirubin 0.6, AST 49 H, ALT 102 H, Alkaline Phosphatase 100, Creatine Kinase 54, CK-MB (CK-2) Rel Index 0.9, CK and CKMB Interp < 0.5, Troponin I < 0.02, Total Protein 7.6, Albumin 3.6, Globulin 4.0 H, Albumin/ Globulin Ratio 0.9 L, WBC 5.8, RBC 4.86, Hgb 14.6, Hct 40.9 L, MCV 84.2, RDW 12.8, Plt Count 132 L, MPV 7.7, Gran % 77.8, Gran # 4.5, Lymphocytes % 17.4, Monocytes % 3.1, Eosinophils % 1.5, Basophils % 0.3, Lymphocytes # 1.0, Monocytes # 0.2, Eosinophils # 0.1, Basophils # 0.0, PUBS MCHC 35.6 H, MCH 29.9 Current Medication Orders Sig/Alessia Start time Last Medication Dose Route Stop Time Status Admin Potassium Chloride 40 MEQ ONCE ONE 05/18 1915 AC PO 05/18 1916 Nitroglycerin 1 IN ONCE ONE 05/18 173 DC 05/18 TP 05/18 173 1750 Sodium Chloride 10 ML PRN PRN 05/18 173 AC IV 05/19 1723 Nitroglycerin 0 .STK-MED ONE 05/18 1728 DC .ROUTE Orders Procedure Date/time Status DIET-NOTHING BY MOUTH 05/[address] HEAD W/O CONTRAST 05/[address] HEAD REQ 05/18 1732 Complete URINALYSIS/COMPLETE 05/18 1732 Active BRAIN NATRIURETIC PEPTIDE 05/18 1732 Complete ELECTROCARDIOGRAM REQUEST 05/18 1723 Active CHEST(2 VIEWS-NOT PORTABLE) 05/18 1723 Active IV SALINE LOCK 05/18 1723 Active PRESS TENDER INCENDIARY GRENADE 05/18 1723 Active CULTURE, BLOOD 10/29 1723 Active LACTIC ACID 05/18 1723 Complete CBC WITH AUTO DIFF 05/18 1723 Complete CARDIAC ENZYMES 05/18 1723 Complete CHEM 12 PROFILE 05/18 1723 Complete CM/EKG CM/EKG EKG sinus tachycardia 107/m with progression baseline artifact no acute findings Departure Departure Time of Disposition 1914 Disposition Still a Patient Clinical Impression Primary Impression: Hypertensive emergency without congestive heart failure Secondary Impressions: Chest pain, Headache Condition STABLE Referrals Meche Martin APRN (Family) Additional Instructions i DISCUSSED WITH DR ESPARZA WHO AGREED TO KEEP HIM ON NTG PAST, OBTAIN MORE TROPONIN AND SEE DR ALBA IN AM . THE PATIETN AGREED FOR A HOSPITAL STAY. Discharge Counseling Counseled pt/family regarding diagnosis, test results, medications/RX, follow up needs ED Critical Care Critical Care No If Critical Care minutes are documented, the time involved in the performance of seperately reportable procedures was not counted toward critical care time documented. I directly delivered medical care to this critically ill and/or injured patient. Timely evaluation and treatment was necessary to address the significant organ system(s) dysfunction present in this patient. at 1917
--- NOTE | 2017-05-18 17:32 | Emergency Room Report ---
History of Present Illness Time Seen by 171Kyung Presenting Problem in Triage Pt arrived:Walked Presenting Problem:PT REPORTS WENT TO [facility] TODAY R/T HAVING A FEVER X3 DAYS AND FEELING RUN DOWN. [facility] SENT PT TO ER R/T ELEVATED BP AND PT REPORTING CHEST PAIN. PT REPORTS HAS BEEN HAVING CHEST PAIN INTERMITTENTLY FOR A COUPLE MONTHS, SATES PAIN IS SHARP ON L SIDE OF CHEST AND PRESSURE IN MIDSTERNAL AREA. 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 Y Clinical Suspician of Infection? N Mental Status: 1 - Regular (Normal Baseline) Sepsis Risk:Possible Sepsis Risk Have you (or family members/close friends) recently traveled outside the [place]? N If Yes, where/when: Have you had exposure to infectious disease within the past month? N TB? Other? Specify: . 37 years old white male with obesity and hypertension, he has been noncompliant with his blood pressure medication, he has been experiencing frontal and temporal headache for the last 4 days, also intermittent chest pain sharp in character LEFT inframammary for the past months or so. He doesn't feed well getting weaker shortness of breath and palpitations. Went to [facility] and was found to have elevated blood pressure 190/110 mmhg so he was sent to the ED. Source patient, RN notes reviewed Exam Limitations no limitations ALLERGIES Coded Allergies: Penicillins (09/17/16) codeine (09/17/16) Home Medications Reported Medications LOSARTAN/HYDROCHLOROTHIAZIDE (Losartan-Hctz 100-25 MG Tab) 1 TAB PO DAILY #30 ASPIRIN (Aspirin) 81 MG PO DAILY History Medical History General CAD? No Angina: No [place]: No Hypertension? Yes Hyperlipidemia? No CHF? No DVT? No PE? No COPD? No Asthma? No Anemia? No GERD? No Gastric ulcers? No GI Bleed? No Hernia? No Thyroid Problems? No Hypothyroidism? No CVA? No Seizures? No Diabetes? No Renal Insuffiency? No End Stage Renal Disease? No UTI? No Stones? No BPH? No GB Disease: No Nephritic Syndrome? No Asplenia? No Hepatitis? No Sickle Cell Disease? No Arthritis? No Migraines? Yes Cataracts? No Glaucoma? No MRSA? No HIV? No TB? No Anxiety? Yes Depression? No Cancer? No More? No Immunization Hx DT/Tetanus 5-10 YRS Surgical Hx Previous Surgery?N Social History Smoking Hx Smoker: Never Smoker Tobacco: No Packs/day N/A Alcohol Alcohol: Yes Review of Systems All Other Systems Reviewed and Negative Constitutional see HPI Eyes no symptoms reported ENT no symptoms reported. Respiratory no symptoms reported Cardiovascular chest pain Gastrointestinal no symptoms reported Genitourinary no symptoms reported. Musculoskeletal no symptoms reported Skin no symptoms reported Physical Exam Vital Signs Vital Signs Date Time Temp Pulse Resp B/P Pulse O2 O2 Flow FiO2 Ox Delivery Rate 05/18 1843 96 20 145/87 97 05/18 1753 104 20 168/98 94 05/18 1714 99.6 109 20 196/114 96 - WBC >12,000 or <4,000 or 10% bands? 2 or more SIRS Criteria Met? B/P:196/114 MAP:141 Creatinine >2.0? UA output<0.5ml/kg/hr for 2 hrs? Platelet count >100,000? Lactate >2.0mmol/1? INR >1.2 or PTT > than 60 sec? Evidence of Organ Dysfunction? Provider documented clinical suspician of infection? N Sepsis Criteria Count: 2 Sepsis Risk: Possible Sepsis Risk General Appearance normal appearance, WD/WN Eye Exam - bilateral eye normal exam, bilateral eye PERRL, bilateral eye EOMI Ear, Nose, Throat hearing grossly normal, normal ENT inspection Neck normal inspection, non-tender, supple, full range of motion Respiratory Status Yes: trachea midline, chest symmetrical, non tender chest. No: respiratory distress. Lung Sounds bilateral: normal breath sounds, lungs clear. 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 No Results/Orders Laboratory Tests 05/18/17 1720: Lactic Acid 1.4 05/18/17 1720: B-Natriuretic Peptide 11 05/18/17 1720: Sodium 137, Potassium 3.3 L, Chloride 100, Carbon Dioxide 28, BUN 9, Creatinine 0.9, Estimated Creat Clear 255 H, Estimated GFR (MDRD) 95, Glucose 114 H, Calcium 8.7, Total Bilirubin 0.6, AST 49 H, ALT 102 H, Alkaline Phosphatase 100, Creatine Kinase 54, CK-MB (CK-2) Rel Index 0.9, CK and CKMB Interp < 0.5, Troponin I < 0.02, Total Protein 7.6, Albumin 3.6, Globulin 4.0 H, Albumin/ Globulin Ratio 0.9 L, WBC 5.8, RBC 4.86, Hgb 14.6, Hct 40.9 L, MCV 84.2, RDW 12.8, Plt Count 132 L, MPV 7.7, Gran % 77.8, Gran # 4.5, Lymphocytes % 17.4, Monocytes % 3.1, Eosinophils % 1.5, Basophils % 0.3, Lymphocytes # 1.0, Monocytes # 0.2, Eosinophils # 0.1, Basophils # 0.0, PUBS MCHC 35.6 H, MCH 29.9 Current Medication Orders Sig/Alessia Start time Last Medication Dose Route Stop Time Status Admin Potassium Chloride 40 MEQ ONCE ONE 05/18 1915 AC PO 05/18 1916 Nitroglycerin 1 IN ONCE ONE 05/18 173 DC 05/18 TP 05/18 173 1750 Sodium Chloride 10 ML PRN PRN 05/18 173 AC IV 05/19 1723 Nitroglycerin 0 .STK-MED ONE 05/18 1728 DC .ROUTE Orders Procedure Date/time Status DIET-NOTHING BY MOUTH 05/[address] HEAD W/O CONTRAST 05/[address] HEAD REQ 05/18 1732 Complete URINALYSIS/COMPLETE 05/18 1732 Active BRAIN NATRIURETIC PEPTIDE 05/18 1732 Complete ELECTROCARDIOGRAM REQUEST 05/18 1723 Active CHEST(2 VIEWS-NOT PORTABLE) 05/18 1723 Active IV SALINE LOCK 05/18 1723 Active WILDLAND FIREFIGHTER 05/18 1723 Active CULTURE, BLOOD 10/29 1723 Active LACTIC ACID 05/18 1723 Complete CBC WITH AUTO DIFF 05/18 1723 Complete CARDIAC ENZYMES 05/18 1723 Complete CHEM 12 PROFILE 05/18 1723 Complete CM/EKG CM/EKG EKG sinus tachycardia 107/m with progression baseline artifact no acute findings Departure Departure Time of Disposition 1914 Disposition Still a Patient Clinical Impression Primary Impression: Hypertensive emergency without congestive heart failure Secondary Impressions: Chest pain, Headache Condition STABLE Referrals Meche Martin APRN (Family) Additional Instructions i DISCUSSED WITH DR ESPARZA WHO AGREED TO KEEP HIM ON NTG PAST, OBTAIN MORE TROPONIN AND SEE DR ALBA IN AM . THE PATIETN AGREED FOR A HOSPITAL STAY. Discharge Counseling Counseled pt/family regarding diagnosis, test results, medications/RX, follow up needs ED Critical Care Critical Care No If Critical Care minutes are documented, the time involved in the performance of seperately reportable procedures was not counted toward critical care time documented. I directly delivered medical care to this critically ill and/or injured patient. Timely evaluation and treatment was necessary to address the significant organ system(s) dysfunction present in this patient. at 1917
[2017-05-18 17:33] LABS: HEMOGLOBIN 14.6 g/dL (14.1-18.0); LYMPH % 17.4 % (10-50)
--- OUTSIDE RECORDS SUMMARY | 2017-05-18 17:42 | External Medical Summary Rpt | CCD ---
Author Author , PRAVIN COSTELLO Address Unknown Phone [email or web address] Care Team Providers Care Mmi Teacher Name Role Phone A Omer DAVIDSON MD PSC, Dave Unavailable Unavailable Omer DAVIDSON MD PSC RADU LOVELACE Unavailable Unavailable NORIEGA ALL, NORIEGA ALL Unavailable Unavailable FINE, FINE Unavailable Unavailable BESSY, BESSY Unavailable Unavailable CISNEROS, CISNEROS Unavailable Unavailable [facility] Unavailable Unavailable INC, [facility] Unavailable Un[facility], Unavailable Unavailable [facility], Unavailable Unavailable [facility] Unavailable Unavailable [facility], [facility] KILPELA JEA, KILPELA Unavailable Unavailable [facility] Unavailable Unavailable [facility] Un[facility] Unavailable Unavailable [facility], [facility] Unavailable Unavailable [facility], [facility] IAN PARRY, IAN PARRY Unavailable Unavailable ANJALI, ANJALI Unavailable Unavailable ANJALI MAT, Unavailable Unavailable ANJALI MAT ANJEL CE, ANJEL Unavailable Unavailable [facility] Unavailable Unavailable EQUIPME, [facility] [...] [facility] R079 CHEST PAIN 09-29-2016 [facility] [id number] ADVERS EFF 09-29-2016 [facility] OTH RX MEDS [facility] P SUBSTANCES INIT ENC V44659 UNS PLACE 09-29-2016 [facility] UNS NON [facility] P PLACE OF OCCUR EXT Z720 TOBACCO USE 09-29-2016 [facility] R400 SOMNOLENCE 09-18-2016 [facility] R7989 OTHER SPEC 09-18-2016 [facility] ABNORMAL PHYSICIANS FINDINGS GROUP BLOOD CHEMISTRY R931 ABNORMAL 09-18-2016 [facility] FINDINGS ON PHYSICIANS DX IMAGING GROUP HEART & COR CIRC [id number] PAIN IN 07-08-2016 [facility] UNSPECIFIED ANKLE M2570 OSTEOPHYTE 07-08-2016 [facility] UNSPECIFIED JOINT M7730 CALCANEAL 07-08-2016 [facility] SPUR UNSPECIFIED FOOT S59560 PAIN IN 07-08-2016 [facility] RIGHT FOOT J020 STREPTOCOCC 06-23-2016 [facility] AL PHYSICIAN PHARYNGITIS GROUP 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-26-2016 [facility] SEVERE PHYSICIANS OBESITY DUE GROUP TO EXCESS CALORIES G4700 INSOMNIA 04-18-2016 A Omer DAVIDSON UNSPECIFIED PSC R635 ABNORMAL 04-18-2016 A Omer DAVIDSON WEIGHT GAIN PSC E785 HYPERLIPIDE 04-05-2016 [facility] UNSPECIFIED HOLDINGS 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 03-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 [facility] INSUFFICIEN CY I361 NONRHEUMATI 03-21-2016 [facility] TRICUSPID SERV [facility] INSUFFICIEN CY I371 NONRHEUMATI 03-21-2016 [facility] PULMONARY SERV [facility] INSUFFICIEN CY R0602 SHORTNESS 03-21-2016 [facility] MEDICAL IMAG[facility] ASS E669 OBESITY 03-19-2016 [facility] UNSPECIFIED PHYSICIANS GROUP I10 ESSENTIAL (PRIMARY) HYPERTENSIO N I16.1 HYPERTENSIV E EMERGENCY R07.9 CHEST PAIN, UNSPECIFIED T88.7XXA UNSP ADVERSE EFFECT OF DRUG OR MEDICAMENT, INIT ENCNTR Medications Na ND Rx Da Fi Fi Am Da Di Ph RX Ph St me C No te ll ll ou ys ag ar # ys at rm s nt no ma ic us Or Da si cy ia de te s n re d LO 68 09 10 30 30 00 WA Ac SA 18 -2 -2 .0 00 L- ti RT 00 8- 7- 00 07 MA ve AN 21 20 20 51 RT -H [address] 9 43 PH Z AR 10 MA 0- CY 25 #5 MG 91 TA B ME 59 08 09 21 6 00 ID Ac TH 74 -0 -0 .0 00 L- ti YL 60 7- 1- 00 07 MA ve ID 00 20 20 50 RT ED 10 17 17 28 NI 3 15 PH SO AR LO MA NE CY 4 #5 MG 91 DO SE PK AZ 59 08 09 6. 5 00 ID Ac IT 76 -0 -0 00 00 L- ti HR 23 7- 1- 0 07 MA ve OM 06 20 20 50 RT YC 00 17 17 28 IN 1 16 PH AR 25 MA 0 CY MG #5 TA 91 BL ET CH 78 08 09 17 25 00 ID Ac LO 11 -0 -0 7. 00 L- ti RA 20 7- 1- 00 08 MA ve SE 01 20 20 0 84 RT PT 10 17 17 06 IC 3 18 PH AR SO MA RE CY TH #5 RO 91 AT SP RA Y LO 68 07 08 30 30 00 ID Ac SA 18 -2 -2 .0 00 L- ti RT 00 7- 5- 00 07 MA ve AN 21 20 20 50 RT -H [address] 9 76 PH Z AR 10 MA 0- CY 25 #5 MG 91 TA B VE 00 07 08 30 30 00 ID Ac NL 09 -2 -2 .0 00 L- ti AF 37 7- 5- 00 07 MA ve AX 38 20 20 50 RT IN 45 17 17 09 E 6 83 PH HC AR L MA ER CY 37 #5 .5 91 MG CA P VE 00 06 07 30 30 00 ID Ac NL 09 -1 -1 .0 00 L- ti AF 37 9- 4- 00 07 MA ve AX 38 20 20 49 RT IN 45 17 17 43 E 6 73 PH HC AR L MA ER CY 37 #5 .5 91 MG CA P LO 68 06 07 30 30 00 ID Ac SA 18 -1 -1 .0 00 L- ti RT 00 9- 4- 00 07 MA ve AN 21 20 20 49 RT -H [address] 9 75 PH Z AR 10 MA 0- CY 25 #5 MG 91 TA B VE 00 05 06 30 30 00 ID Ac NL 09 -0 -0 .0 00 L- ti AF 37 5- 2- 00 07 MA ve AX 38 20 20 48 RT IN 45 17 17 04 E 6 58 PH HC AR L MA ER CY 37 #5 .5 91 MG CA P LO 68 05 06 30 30 00 ID Ac SA 18 -0 -0 .0 00 L- ti RT 00 5- 2- 00 07 MA ve AN 21 20 20 48 RT -H [address] 9 57 PH Z AR 10 MA 0- CY 25 #5 MG 91 TA B LO 68 04 05 30 30 00 ID Ac SA 18 -1 -0 .0 00 L- ti RT 00 2- 5- 00 07 MA ve AN 21 20 20 44 RT -H [address] 9 55 PH Z AR 10 MA 0- CY 25 #5 MG 91 TA B VE 00 04 04 30 30 00 ID Ac NL 09 -0 -2 .0 00 L- ti AF 37 4- 8- 00 07 MA ve AX 38 20 20 48 RT IN 45 17 17 04 E 6 58 PH HC AR L MA ER CY 37 #5 .5 91 MG CA P LO 68 03 04 30 30 00 ID Ac SA 18 -1 -0 .0 00 L- ti RT 00 1- 7- 00 07 MA ve AN 21 20 20 44 RT -H [address] 9 55 PH Z AR 10 MA 0- CY 25 #5 MG 91 TA B BU 45 01 02 30 30 00 ID Ac ID 96 -2 -2 .0 00 L- ti OP 30 8- 4- 00 07 MA ve IO 14 20 20 44 RT N 20 17 17 39 HC 5 72 PH L AR XL MA CY 30 0 #5 MG 91 TA BL ET LO 68 01 02 30 30 00 ID Ac SA 18 -2 -2 .0 00 L- ti RT 00 8- 4- 00 07 MA ve AN 21 20 20 44 RT -H [address] 9 55 PH Z AR 10 MA 0- CY 25 #5 MG 91 TA B Results Labs Lab Lab Date Result Refere Interp Status Commen Order Detail nces retati t Range on CBC w auto diff (05-18-2017 17:20) Automat 2 = 0.0 0-0.2 complet ed 017 K/MM3 ed blood 17:20 basophi l count (count/ vo Baso % = 0.3 % 0.1-2.0 complet 017 ed 17:20 Automat 2 = 0.1 0.0-0.4 complet ed 017 K/mm3 ed blood 17:20 eosinop hil count Automat = 1.5 % 0.1-12. complet ed 017 0 ed blood 17:20 eosinop hils/10 0 leukocy t Blood = 4.5 1.3-8.0 complet granulo 017 K/mm3 ed cytes 17:20 automat ed count (numb Granulo = 77.8 37.0-80 complet cyte 017 % .0 ed percent 17:20 age Blood = 40.9 42.0-52 complet hematoc 017 % .0 ed rit 17:20 (volume fractio n) Blood = 14.6 14.1-18 complet hemoglo 017 g/dL .0 ed bin 17:20 measure ment (mass/v olum Absolut = 1.0 0.7-4.5 complet e 017 K/mm3 ed lymphoc 17:20 yte count Lymphoc = 17.4 10-50 complet yte 017 % ed count, 17:20 blood, automat ed Mean = 29.9 27-31.2 complet corpusc 017 pg ed ular 17:20 hemoglo bin (MCH) determ Automat = 35.6 31.8-35 complet ed 017 g/dl .4 ed erythro 17:20 cyte mean corpusc ular h Automat = 84.2 82.2-97 complet ed 017 fl .8 ed erythro 17:20 cyte mean corpusc ular v Absolut = 0.2 0.1-1.0 complet e 017 K/mm3 ed monocyt 17:20 e count [place] % = 3.1 % 1.7-9.3 complet 017 ed 17:20 Automat = 7.7 7.4-10. complet ed 017 fl 4 ed blood 17:20 platele t mean volume sherrell Blood = 132 142-424 complet platele 017 K/mm3 ed t count 17:20 Red = 4.86 4.6-6.2 complet blood 017 M/mm3 ed cell 17:20 count Automat = 12.8 11.5-17 complet ed 017 % .5 ed erythro 17:20 cyte distrib ution width Blood = 5.8 4.8-10. complet leukocy 017 K/MM3 8 ed vidhya 17:20 count (number /volume ) Streptococcus pyogenes Ag [Presence] in Unspecified specimen (02-24-2017 16:50) Strepto NOT NOTDETE complet coccus 017 [address]ED ed pyogene 16:50 D s Ag [Presen ce] in Unspeci fied specime n Procedures Procedure DOS Code Location Performer Comment CONTINUOU E0601 ANJEL BINGHAMRELL S 7 HOME HOME POSITIVE MEDICAL MEDICAL AIRWAY EQUIPME EQUIPME PRESSURE DEVICE CONTINUOU E0601 ANJEL BINGHAMRELL S 7 HOME HOME POSITIVE MEDICAL MEDICAL AIRWAY EQUIPME EQUIPME PRESSURE DEVICE FULL FACE A7030 ANJEL BINGHAMRELL MASK 7 HOME HOME USED MEDICAL MEDICAL W/POS EQUIPME EQUIPME ARWAY PRESS DEVICE EA FILTER A7038 ANJEL HOBBS DISPBL 7 HOME HOME USED MEDICAL MEDICAL W/POS EQUIPME EQUIPME ARWAY PRESSURE DEVICE FILTER A7039 ANJEL ANJEL NON 7 HOME HOME DISPBL MEDICAL MEDICAL USED EQUIPME EQUIPME W/POS ARWAY PRESS DEVICE HEADGEAR A7035 ANJEL HOBBS USED 7 HOME HOME W/POSITIV MEDICAL MEDICAL E AIRWAY EQUIPME EQUIPME PRESSURE DEVICE TUBING A7037 ANJEL HOBBS USED WITH 7 HOME HOME POSITIVE MEDICAL MEDICAL AIRWAY EQUIPME EQUIPME PRESSURE DEVICE HUMDIFIR E0562 ANJEL HOBBS HEATED 7 HOME HOME USED MEDICAL MEDICAL W/POS EQUIPME EQUIPME ARWAY PRESSURE DEVICE GONADOTRO 07899 [facility] PIN 7 [facility] FOLLICLE HOLDINGS [place] [address] [facility] TESTOSTER 7 [place] [address] [facility] ZINC 7 [facility] HOLDINGS HOLDINGS GONADOTRO [address] [facility] PIN 7 [facility] LUTEINIZI HOLDINGS HOLDINGS NG HORMONE DEHYDROEP 24597 [facility] IANDROSTE 7 [facility]SHLEY [place] [address] [facility] TESTOSTER 7 [facility] ONE TOTAL HOLDINGS HOLDINGS SLEEP STD 13729 [facility] COLIN AIRFLOW 7 [facility] HRT INC INC RATE&O2 [place] [address] [facility] FREE 7 [facility] [place] [address] [facility] THYROID 7 [facility] STIMULATI HOLDINGS HOLDINGS NG HORMONE TSH COLLECTIO 21206 Dave Coelho VENOUS 7 STUART ESPANA BLOOD PSC VENIPUNCT URE COMPREHEN 07166 [facility] SIVE 7 [facility] METABOLIC HOLDINGS HOLDINGS PANEL CREATINE 78235 [facility] COLIN KINASE MB 7 [facility] FRACTION INC INC ONLY COMPREHEN 97026 D[facility] COLIN SIVE 7 [facility] METABOLIC INC INC PANEL ECG 50607 RAYO DOHERTY ROUTINE 7 PHYSICIAN ECG S, PLLC W/LEAST 12 LDS I&R ONLY UNCLASSIF J3490 [facility] COLIN IED DRUGS 7 [facility] INC INC CREATINE 89158 [facility] COLIN KINASE 7 [facility] TOTAL INC INC ECG 44884 [facility] COLIN ROUTINE 7 [facility] ECG INC INC W/LEAST 12 LDS TRCG ONLY W/O I&R BLOOD 57851 [facility] COLIN COUNT 7 [facility] COMPLETE INC INC AUTO&[place] [address] [facility] COLIN TROPONIN 7 [facility] QUANTITAT INC INC ESTEBAN RADIOLOGI 01975 [facility] C EXAM 7 MEDICAL CHEST 2 IMAGING VIEWS ASS FRONTAL&L ATERAL UNCLASSIF J3490 D[facility]IE COLIN IED DRUGS 7 [facility] INC INC ECG 51697 [facility] COLIN ROUTINE 7 [facility] ECG INC INC W/LEAST 12 LDS TRCG ONLY W/O I&R THER 49186 D[facility] COLIN PROPH/DX 7 [facility] NJX IV INC INC PUSH SINGLE/1S T SBST/DRUG ECG 66954 [facility] AN[facility] ROUTINE 7 PHYSICIAN ECG S GROUP W/LEAST 12 LDS I&R ONLY ECG 08254 DIXIE SOSA JR ROUTINE 7 [facility] W/LEAST P 12 LDS I&R ONLY COMPREHEN 21934 [facility]IE COLIN SIVE 7 [facility] METABOLIC INC INC PANEL CREATINE 10989 DIXIE DIXIE KINASE MB 7 [facility] [place] [address] DIXIE DIXIE TROPONIN 7 [facility] QUANTITAT INC INC ESTEBAN ECG 83759 DIXIE DIXIE ROUTINE 7 [facility] ECG INC INC W/LEAST 12 LDS TRCG ONLY W/O I&R CREATINE 09854 DIXIE DIXIE KINASE 7 [facility] TOTAL INC INC UNCLASSIF J3490 DIXIE DIXIE IED DRUGS 7 [facility] INC INC RADIOLOGI 43732 DIXIE COLIN C EXAM 7 [facility] CHEST 2 INC INC VIEWS FRONTAL&L ATERAL BLOOD 50402 D[facility]IE COLIN COUNT 7 [facility] COMPLETE INC INC AUTO&AUTO DIFRNTL WBC RADEX 26893 MIKE FINE ANKLE 6 COMPLETE MINIMUM 3 VIEWS RADEX 69995 MIKE FINE FOOT 6 COMPLETE MINIMUM 3 VIEWS ECG 73464 [facility] ROUTINE 6 PHYSICIAN MAT ECG S GROUP W/LEAST 12 LDS I&R ONLY ECG 84044 [facility] COLIN ROUTINE 6 [facility] ECG INC INC W/LEAST 12 LDS TRCG ONLY W/O I&[place] [address] [facility] TESTOSTER 6 [facility] ONE TOTAL HOLDINGS HOLDINGS LIPID 38626 Dave MARTINES PANEL 6 STUART ESPANA JEDave PSC ECHO 91464 BRITNI LEYVA TRANSTHOR 6 MEDICAL [facility] C R-T 2D SERV W/WO FOUNDATIO M-MODE N REC F-UP/LMTD ECG 84216 [facility] ROUTINE 6 PHYSICIAN MAT ECG S GROUP W/LEAST 12 LDS I&R ONLY ECG 10527 [facility] COLIN ROUTINE 6 [facility] ECG INC INC W/LEAST 12 LDS TRCG ONLY W/O I&R CV STRS 71404 [facility] COLIN TST 6 [facility] XERS&/OR [place] [address] DIXIE COLIN RETROPERI 6 [facility] TONEAL INC INC REAL [place] W/[place] [address] [facility] ALL RETROPERI 6 MEDICAL TONEAL IMAGING REAL TIME ASS W/IMAGE LIMITED RADIOLOGI 77551 DIXIE COLIN C EXAM 6 [facility] CHEST 2 INC INC VIEWS FRONTAL&L ATERAL ECHO 87021 BRITNI ANJEL TTHRC R-T 6 MEDICAL CE 2D SERV W/WOM-MOD FOUNDATIO E COMPL N SPEC&COLR D ECG 64521 [facility] ROUTINE 6 PHYSICIAN MAT ECG S GROUP W/LEAST 12 LDS I&R ONLY ECG 28202 DIXIE COLIN ROUTINE 6 [facility] ECG INC INC W/LEAST 12 LDS TRCG ONLY W/O I&R ECG 08666 A C KILPELA ROUTINE 6 STUART ESPANA JEA ECG PSC W/LEAST 12 LDS W/I&R HEMOGLOBI 39062 A C KILPELA N 6 STUART ESPANA JEA GLYCOSYLA PSC ISABELLE A1C BLOOD 82674 A C KILPELA COUNT 6 STUART ESPANA JEDave COMPLETE PSC AUTO&AUTO DIFRNTL WBC Encounters Encounter Start End Date Code Location Performer Type Date [facility] DIXIE - 7 7 [facility] OUTPATIEN [facility] T OFFICE 33189 A Omer CISNEROS OUTPATISIMÓN 7 7 STUART ESPANA T VISIT PSC 15 MINUTES EMERGENCY 13270 DIXIE 7 7 [facility] DEPARTMEN [facility] T VISIT HIGH/URGE NT SEVERITY HOSPITAL DIXIE Kessler 7 7 [facility] OUTPATIEN [facility] DIXIE - 7 7 [facility] OUTPATIEN [facility] T OFFICE 17640 [facility] ANJALI OUTPATIEN 7 7 PHYSICIAN T VISIT S GROUP 25 MINUTES EMERGENCY 23987 D[facility]IE 7 7 [facility] DEPARTMEN INC T VISIT HIGH/URGE NT SEVERITY HOSPITAL DIXIE - 7 7 [facility] OUTPATIEN INC T OFFICE 05588 MIKE FINE OUTPATIEN 6 6 T NEW 30 MINUTES OFFICE 19132 [facility] STONE OUTPATIEN 6 6 PHYSICIAN T VISIT GROUP 25 MINUTES HOSPITAL DIXIE - 6 6 [facility] OUTPATIEN INC T OFFICE 54127 [facility] ANJALI OUTPATIEN 6 6 PHYSICIAN MAT T VISIT S GROUP 25 MINUTES OFFICE 32724 A C KILPELA OUTPATIEN 6 6 STUART ADEN T VISIT PSC 25 MINUTES OFFICE 51432 A C KILPELA OUTPATIEN 6 6 STUART ADEN T VISIT PSC 15 MINUTES HOSPITAL DIXIE - 6 6 [facility] OUTPATIEN INC T OFFICE 01609 [facility] ANJALI OUTPATIEN 6 6 PHYSICIAN MAT T VISIT S GROUP 25 MINUTES HOSPITAL DIXIE - 6 6 [facility] OUTPATIEN INC T OFFICE 48540 A C KILPELA OUTPATIEN 6 6 STUART ADEN T VISIT PSC 15 MINUTES HOSPITAL DIXIE - 6 6 [facility] OUTPATIEN INC T OFFICE 11601 [facility] ANJALI OUTPATIEN 6 6 PHYSICIAN MAT T NEW 45 S GROUP MINUTES
--- OUTSIDE RECORDS SUMMARY | 2017-05-18 17:42 | External Medical Summary Rpt | CCD ---
Author Author , PRAVIN COSTELLO Address Unknown Phone [email or web address] Care Team Providers Care Functional Tester Typewriters Name Role Phone A Omer DAVIDSON MD PSC, Dave Unavailable Unavailable Omer DAVIDSON MD PSC [facility] Unavailable Unavailable NORIEGA ALL, NORIEGA ALL Unavailable Unavailable FINE, FINE Unavailable Unavailable BESSY, BESSY Unavailable Unavailable CISNEROS, CISNEROS Unavailable Unavailable [facility] Un[facility] Unavailable [facility], [facility] Unavailable Unavailable HOSPITAL P, [facility], Unavailable Unavailable [facility], Unavailable Unavailable [facility] Un[facility] Un[facility], [facility] KILPELA JEA, KILPELA Unavailable [...] [facility] R079 CHEST PAIN 09-29-2016 [facility] [id number] ADVERS EFF 09-29-2016 [facility] OTH RX MEDS [facility] P SUBSTANCES INIT ENC [id number] UNS PLACE 09-29-2016 [facility] UNS NON [facility] P PLACE OF OCCUR EXT Z720 TOBACCO USE 09-29-2016 [facility] R400 SOMNOLENCE 09-18-2016 [facility] R7989 OTHER SPEC 09-18-2016 [facility] ABNORMAL PHYSICIANS FINDINGS GROUP BLOOD CHEMISTRY R931 ABNORMAL 09-18-2016 [facility] FIND[facility] ON PHYSICIANS DX IMAGING GROUP HEART & COR CIRC [id number] PAIN IN 07-08-2016 [facility] UNSPECIFIED ANKLE M2570 OSTEOPHYTE 07-08-2016 [facility] UNSPECIFIED JOINT M7730 CALCANEAL 07-08-2016 [facility] SPUR UNSPECIFIED FOOT [id number] PAIN IN 07-08-2016 [facility] RIGHT FOOT J020 STREPTOCOCC 06-23-2016 [facility] AL PHYSICIAN PHARYNGITIS GROUP 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-26-2016 [facility] SEVERE PHYSICIANS OBESITY DUE GROUP TO EXCESS CALORIES G4700 INSOMNIA 04-18-2016 A Omer DAVIDSON UNSPECIFIED PSC R635 ABNORMAL 04-18-2016 A Omer DAVIDSON WEIGHT GAIN PSC E785 HYPERLIPIDE 04-05-2016 LAB [facility] UNSPECIFIED HOLDINGS 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 03-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 [facility] INSUFFICIEN CY I361 NONRHEUMATI 03-21-2016 [facility] TRICUSPID SERV [facility] INSUFFICIEN CY I371 NONRHEUMATI 03-21-2016 [facility] PULMONARY SERV [facility] INSUFFICIEN CY R0602 SHORTNESS 03-21-2016 [facility] E669 OBESITY 03-19-2016 [facility] UNSPECIFIED PHYSICIANS GROUP I10 ESSENTIAL (PRIMARY) [...] ME 59 08 09 21 6 00 AR Ac TH 74 -0 -0 .0 00 L- ti YL 60 7- 1- 00 07 MA ve MO 00 20 20 50 RT ED 10 17 17 28 NI 3 15 PH SO AR LO MA NE CY 4 #5 MG 91 DO SE PK AZ 59 08 09 6. 5 00 AR Ac IT 76 -0 -0 00 00 L- ti HR 23 7- 1- 0 07 MA ve OM 06 20 20 50 RT YC 00 17 17 28 IN 1 16 PH AR 25 MA 0 CY MG #5 TA 91 BL ET CH 78 08 09 17 25 00 AR Ac LO 11 -0 -0 7. 00 L- ti RA 20 7- 1- 00 08 MA ve SE 01 20 20 0 84 RT PT 10 17 17 06 IC 3 18 PH AR SO MA RE CY TH #5 RO 91 AT SP RA Y LO 68 07 08 30 30 00 AR Ac SA 18 -2 -2 .0 00 L- ti RT 00 7- 5- 00 07 MA ve AN 21 20 20 50 RT -H [address] 9 76 PH Z AR 10 MA 0- CY 25 #5 MG 91 TA B VE 00 07 08 30 30 00 AR Ac NL 09 -2 -2 .0 00 L- ti AF 37 7- 5- 00 07 MA ve AX 38 20 20 50 RT IN 45 17 17 09 E 6 83 PH HC AR L MA ER CY 37 #5 .5 91 MG CA P VE 00 06 07 30 30 00 AR Ac NL 09 -1 -1 .0 00 L- ti AF 37 9- 4- 00 07 MA ve AX 38 20 20 49 RT IN 45 17 17 43 E 6 73 PH HC AR L MA ER CY 37 #5 .5 91 MG CA P LO 68 06 07 30 30 00 AR Ac SA 18 -1 -1 .0 00 L- ti RT 00 9- 4- 00 07 MA ve AN 21 20 20 49 RT -H [address] 9 75 PH Z AR 10 MA 0- CY 25 #5 MG 91 TA B VE 00 05 06 30 30 00 AR Ac NL 09 -0 -0 .0 00 L- ti AF 37 5- 2- 00 07 MA ve AX 38 20 20 48 RT IN 45 17 17 04 E 6 58 PH HC AR L MA ER CY 37 #5 .5 91 MG CA P LO 68 05 06 30 30 00 AR Ac SA 18 -0 -0 .0 00 L- ti RT 00 5- 2- 00 07 MA ve AN 21 20 20 48 RT -H [address] 9 57 PH Z AR 10 MA 0- CY 25 #5 MG 91 TA B LO 68 04 05 30 30 00 AR Ac SA 18 -1 -0 .0 00 L- ti RT 00 2- 5- 00 07 MA ve AN 21 20 20 44 RT -H [address] 9 55 PH Z AR 10 MA 0- CY 25 #5 MG 91 TA B VE 00 04 04 30 30 00 AR Ac NL 09 -0 -2 .0 00 L- ti AF 37 4- 8- 00 07 MA ve AX 38 20 20 48 RT IN 45 17 17 04 E 6 58 PH HC AR L MA ER CY 37 #5 .5 91 MG CA P LO 68 03 04 30 30 00 AR Ac SA 18 -1 -0 .0 00 L- ti RT 00 1- 7- 00 07 MA ve AN 21 20 20 44 RT -H [address] 9 55 PH Z AR 10 MA 0- CY 25 #5 MG 91 TA B BU 45 01 02 30 30 00 AR Ac MO 96 -2 -2 .0 00 L- ti OP 30 8- 4- 00 07 MA ve IO 14 20 20 44 RT N 20 17 17 39 HC 5 72 PH L AR XL MA CY 30 0 #5 MG 91 TA BL ET LO 68 01 02 30 30 00 AR Ac SA 18 -2 -2 .0 00 [...] 017 K/mm3 ed monocyt 17:20 e count [place] % = 3.1 % 1.7-9.3 complet 017 [...] W/POS EQUIPME EQUIPME ARWAY PRESSURE DEVICE GONADOTRO 52923 LAB [facility] PIN 7 ASHLEY ASHLEY FOLLICLE HOLDINGS [place] [address] LAB [facility] TESTOSTER 7 ASHLEY ASH[place] [address] LAB [facility] ZINC 7 ASHLEY ASHLEY HOLDINGS HOLDINGS GONADOTRO 35405 LAB [facility] LAB AL[facility] PIN 7 ASHLEY ASHLEY LUTEINIZI HOLDINGS HOLDINGS NG HORMONE DEHYDROEP 94050 LAB [facility] LAB [facility] IANDROSTE 7 ASHLEY [place] [address] LAB AL[facility] LAB ALTON TESTOSTER 7 [facility] ONE TOTAL HOLDINGS HOLDINGS SLEEP STD 68602 [facility] COLIN AIRFLOW 7 MEM HOS[facility]OS[facility] HRT INC INC RATE&O2 [place] [address] LAB [facility] LAB ALTON FREE 7 [facility] [place] [address] LAB AL[facility] THYROID 7 [facility] STIMULATI HOLDINGS HOLDINGS NG HORMONE TSH COLLECTIO 86179 Dave Coelho VENOUS 7 STUART ESPANA BLOOD PSC VENIPUNCT URE COMPREHEN 02952 LAB [facility] LAB [facility] SIVE 7 [facility] METABOLIC HOLDINGS HOLDINGS PANEL CREATINE 66167 [facility] COLIN KINASE MB 7 MEM H[facility] FRACTION INC INC ONLY COMPREHEN 90539 D[facility] COLIN SIVE 7 [facility] METABOLIC INC INC PANEL ECG 23355 RAYO DOHERTY ROUTINE 7 PHYSICIAN ECG S, PLLC W/LEAST 12 LDS I&R ONLY UNCLASSIF J3490 [facility] COLIN IED DRUGS 7 [facility] INC INC CREATINE 38555 D[facility] COLIN KINASE 7 [facility] TOTAL INC INC ECG 18848 [facility] COLIN ROUTINE 7 [facility] ECG INC INC W/LEAST 12 LDS TRCG ONLY W/O I&R BLOOD 59741 [facility] COLIN COUNT 7 [facility] COMPLETE INC INC AUTO&[place] [address] D[facility] COLIN TROPONIN 7 MEM [facility] QUANTITAT INC INC ESTEBAN RADIOLOGI 09357 [facility] C EXAM 7 MEDICAL CHEST 2 IMAGING VIEWS ASS FRONTAL&L ATERAL UNCLASSIF J3490 [facility] COLIN IED DRUGS 7 [facility] INC INC ECG 33515 [facility] COLIN ROUTINE 7 [facility] ECG INC INC W/LEAST 12 LDS TRCG ONLY W/O I&R THER 35962 [facility] COLIN PROPH/DX 7 [facility] NJX IV INC INC PUSH SINGLE/1S T SBST/DRUG ECG 43089 [facility] ANJALI ROUTINE 7 PHYSICIAN ECG S GROUP W/LEAST 12 LDS I&R ONLY ECG 59319 DIXIE SOSA JR ROUTINE 7 [facility] W/LEAST P 12 LDS I&R ONLY COMPREHEN 79555 [facility] COLIN SIVE 7 MEM [facility]OS[facility] METABOLIC INC INC PANEL CREATINE 75940 DIXIE DIXIE KINASE MB 7 MEM [facility] [place] [address] D[facility]IE D[facility]IE TROPONIN 7 [facility] QUANTITAT INC INC ESTEBAN ECG 94776 D[facility]IE DIXIE ROUTINE 7 MEM HOS[facility] ECG INC INC W/LEAST 12 LDS TRCG ONLY W/O I&R CREATINE 07694 D[facility]IE DIXIE KINASE 7 MEM H[facility] TOTAL INC INC UNCLASSIF J3490 DIXIE DIXIE IED DRUGS 7 [facility] INC INC RADIOLOGI 44836 D[facility]IE COLIN C EXAM 7 [facility] HOSP CHEST 2 INC INC VIEWS FRONTAL&L ATERAL BLOOD 72992 [facility] COLIN COUNT 7 MEM [facility] COMPLETE INC INC AUTO&AUTO DIFRNTL WBC RADEX 02372 MIKE FINE ANKLE 6 COMPLETE MINIMUM 3 VIEWS RADEX 30483 MIKE FINE FOOT 6 COMPLETE MINIMUM 3 VIEWS ECG 84058 [facility] ROUTINE 6 PHYSICIAN MAT ECG S GROUP W/LEAST 12 LDS I&R ONLY ECG 39208 [facility] COLIN ROUTINE 6 [facility] ECG INC INC W/LEAST 12 LDS TRCG ONLY W/O I&[place] [address] LAB ALTON LAB ALTON TESTOSTER 6 ASHLEY ASHLEY ONE TOTAL HOLDINGS HOLDINGS LIPID 27269 Dave MARTINES PANEL 6 STUART ESPANA JEDave PSC ECHO 53756 BRITNI LEYVA TRANSTHOR 6 [facility] C R-T 2D SERV W/WO FOUNDATIO M-MODE N REC F-UP/LMTD ECG 32730 [facility] ANJALI ROUTINE 6 PHYSICIAN MAT ECG S GROUP W/LEAST 12 LDS I&R ONLY ECG 03291 [facility] COLIN ROUTINE 6 [facility] ECG INC INC W/LEAST 12 LDS TRCG ONLY W/O I&R CV STRS 89286 [facility] TST 6 [facility] XERS&/OR [place] [address] [facility] RETROPERI 6 [facility] TONEAL INC [place] [address] [facility] NORIEGA ALL RETROPERI 6 MEDICAL TONEAL IMAGING REAL TIME ASS W/IMAGE LIMITED RADIOLOGI 96478 [facility] COLIN C EXAM 6 [facility] CHEST 2 INC INC VIEWS FRONTAL&L ATERAL ECHO 07386 BRITNI ANJEL TTHRC R-T 6 MEDICAL CE 2D SERV W/WOM-MOD FOUNDATIO E COMPL N SPEC&COLR D ECG 65201 [facility] ANJALI ROUTINE 6 PHYSICIAN MAT ECG S GROUP W/LEAST 12 LDS I&R ONLY ECG 31423 [facility] COLIN ROUTINE 6 [facility] ECG INC INC W/LEAST 12 LDS TRCG ONLY W/O I&R ECG 32619 A C KILPELA ROUTINE 6 STUART ESPANA JEA ECG PSC W/LEAST 12 LDS W/I&R HEMOGLOBI 38042 A C KILPELA N 6 STUART ESPANA JEA GLYCOSYLA PSC ISABELLE A1C BLOOD 83471 A C KILPELA COUNT 6 STUART ESPANA JEDave COMPLETE PSC AUTO&AUTO DIFRNTL WBC Encounters Encounter Start End Date Code Location Performer Type Date [facility] D[facility] - 7 7 [facility] OUTPATIEN [facility] T OFFICE 16194 A Omer CISNEROS OUTPATISIMÓN 7 7 STUART ESPANA T VISIT PSC 15 MINUTES EMERGENCY 59185 DIXIE 7 7 [facility] DEPARTMEN [facility] T VISIT HIGH/URGE NT SEVERITY HOSPITAL DIXIE Kessler 7 7 [facility] OUTPATIEN [facility] DIXIE - 7 7 [facility] OUTPATIEN [facility] T OFFICE 61140 [facility] ANJALI OUTPATIEN 7 7 PHYSICIAN T VISIT S GROUP 25 MINUTES EMERGENCY 25899 [facility] 7 7 [facility] DEPARTMEN INC T VISIT HIGH/URGE NT SEVERITY HOSPITAL DIXIE - 7 7 [facility] OUTPATIEN INC T OFFICE 26576 MIKE FINE OUTPATIEN 6 6 T NEW 30 MINUTES OFFICE 27080 [facility] STONE OUTPATIEN 6 6 PHYSICIAN T VISIT GROUP 25 MINUTES HOSPITAL DIXIE - 6 6 [facility] OUTPATIEN INC T OFFICE 19218 [facility] ANJALI OUTPATIEN 6 6 PHYSICIAN MAT T VISIT S GROUP 25 MINUTES OFFICE 71370 A C KILPELA OUTPATIEN 6 6 STUART ADEN T VISIT PSC 25 MINUTES OFFICE 32499 A C KILPELA OUTPATIEN 6 6 STUART ADEN T VISIT PSC 15 MINUTES HOSPITAL DIXIE - 6 6 [facility] OUTPATIEN INC T OFFICE 93712 [facility] ANJALI OUTPATIEN 6 6 PHYSICIAN MAT T VISIT S GROUP 25 MINUTES HOSPITAL DIXIE - 6 6 [facility] OUTPATIEN INC T OFFICE 08841 A C KILPELA OUTPATIEN 6 6 STUART ADEN T VISIT PSC 15 MINUTES HOSPITAL DIXIE - 6 6 [facility] OUTPATIEN INC T OFFICE 41409 [facility] ANJALI OUTPATIEN 6 6 PHYSICIAN MAT T NEW 45 S GROUP MINUTES
--- OUTSIDE RECORDS SUMMARY | 2017-05-18 17:43 | External Medical Summary Rpt | CCD ---
Author Author , PRAVIN Organization [employer] Address Unknown Phone [email or web address] Care Team Providers Care Railway Patrol Officer Name Role Phone A Omer DAVIDSON MD PSC, Dave Unavailable Unavailable Omer DAVIDSON MD [facility] RADU LOVELACE Unavailable Unavailable BESSON, BESSON Unavailable Unavailable NORIEGA, NORIEGA Unavailable Unavailable NORIEGA ALL, NORIEGA ALL Unavailable Unavailable FINE, FINE Unavailable Unavailable CISNEROS, CISNEROS Unavailable Unavailable [facility] Unavailable Unavailable INC, [facility] Unavailable Unavailable HOSPITAL P, [facility], Unavailable Unavailable [facility], Unavailable Unavailable [facility] Unavailable Unavailable IMAGING ASS, [facility] [...] PAIN 09-29-2016 [facility] [id number] ADVERS EFF 09-29-2016 [facility] OTH RX MEDS [facility] P SUBSTANCES INIT ENC [id number] UNS PLACE 09-29-2016 D[facility] UNS NON [facility] P PL[facility] OF OCCUR EXT Z720 TOBACCO USE 09-29-2016 [facility] INC R400 SOMNOLENCE 09-18-2016 [facility] R7989 OTHER SPEC 09-18-2016 [facility] ABNORMAL PHYSICIANS FINDINGS GROUP BLOOD CHEMISTRY R931 ABNORMAL 09-18-2016 [facility] FINDINGS ON PHYSICIANS DX IMAGING GROUP HEART & COR CIRC [id number] PAIN IN 07-08-2016 [facility] UNSPECIFIED ANKLE M2570 OSTEOPHYTE 07-08-2016 [facility] UNSPECIFIED JOINT M7730 CALCANEAL 07-08-2016 [facility] SPUR UNSPECIFIED FOOT [id number] PAIN IN 07-08-2016 [facility] RIGHT FOOT J020 STREPTOCOCC 06-23-2016 [facility] AL PHYSICIAN PHARYNGITIS GROUP 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-26-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[facility] SEVERE PHYSICIANS OBESITY DUE GROUP TO EXCESS CALORIES G4700 INSOMNIA 04-18-2016 A Omer DAVIDSON UNSPECIFIED PSC R635 ABNORMAL 04-18-2016 A Omer DAVIDSON WEIGHT GAIN PSC E785 HYPERLIPIDE 04-05-2016 [facility] UNSPECIFIED HOLDINGS 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 03-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 INSUFFICIEN CY I361 NONRHEUMATI 03-21-2016 [facility] TRICUSPID SERV [facility] INSUFFICIEN CY I371 NONRHEUMATI 03-21-2016 [facility] PULMONARY SERV [facility] INSUFFICIEN CY R0602 SHORTNESS 03-21-2016 [facility] MEDICAL IMAGING ASS E669 OBESITY 03-19-2016 [facility] UNSPECIFIED PHYSICIANS GROUP Medications Na ND [...] ME 59 08 09 21 6 00 WA Ac TH 74 -0 -0 .0 00 L- ti YL 60 7- 1- 00 07 MA ve TN 00 20 20 50 RT ED 10 17 17 28 NI 3 15 PH SO AR LO MA NE CY 4 #5 MG 91 DO SE PK AZ 59 08 09 6. 5 00 ND Ac IT 76 -0 -0 00 00 L- ti HR 23 7- 1- 0 07 MA ve OM 06 20 20 50 RT YC 00 17 17 28 IN 1 16 PH AR 25 MA 0 CY MG #5 TA 91 BL ET CH 78 08 09 17 25 00 ND Ac LO 11 -0 -0 7. 00 L- ti RA 20 7- 1- 00 08 MA ve SE 01 20 20 0 84 RT PT 10 17 17 06 IC 3 18 PH AR SO MA RE CY TH #5 RO 91 AT SP RA Y LO 68 07 08 30 30 00 ND Ac SA 18 -2 -2 .0 00 L- ti RT 00 7- 5- 00 07 MA ve AN 21 20 20 50 RT -H [address] 9 76 PH Z AR 10 MA 0- CY 25 #5 MG 91 TA B VE 00 07 08 30 30 00 ND Ac NL 09 -2 -2 .0 00 L- ti AF 37 7- 5- 00 07 MA ve AX 38 20 20 50 RT IN 45 17 17 09 E 6 83 PH HC AR L MA ER CY 37 #5 .5 91 MG CA P VE 00 06 07 30 30 00 ND Ac NL 09 -1 -1 .0 00 L- ti AF 37 9- 4- 00 07 MA ve AX 38 20 20 49 RT IN 45 17 17 43 E 6 73 PH HC AR L MA ER CY 37 #5 .5 91 MG CA P LO 68 06 07 30 30 00 ND Ac SA 18 -1 -1 .0 00 L- ti RT 00 9- 4- 00 07 MA ve AN 21 20 20 49 RT -H [address] 9 75 PH Z AR 10 MA 0- CY 25 #5 MG 91 TA B LO 68 05 30 30 00 ND Ac SA 18 -0 -0 .0 00 L- ti RT 00 5- 2- 00 07 MA ve AN 21 20 20 48 RT -H [address] 9 57 PH Z AR 10 MA 0- CY 25 #5 MG 91 TA B VE 00 05 06 30 30 00 ND Ac NL 09 -0 -0 .0 00 L- ti AF 37 5- 2- 00 07 MA ve AX 38 20 20 48 RT IN 45 17 17 04 E 6 58 PH HC AR L MA ER CY 37 #5 .5 91 MG CA P LO 68 04 05 30 30 00 WA Ac SA 18 -1 -0 .0 00 L- ti RT 00 2- 5- 00 07 MA ve AN 21 20 20 44 RT -H [address] 9 55 PH Z AR 10 MA 0- CY 25 #5 MG 91 TA B VE 00 04 04 30 30 00 ND Ac NL 09 -0 -2 .0 00 L- ti AF 37 4- 8- 00 07 MA ve AX 38 20 20 48 RT IN 45 17 17 04 E 6 58 PH HC AR L MA ER CY 37 #5 .5 91 MG CA P LO 68 03 04 30 30 00 ND Ac SA 18 -1 -0 .0 00 L- ti RT 00 1- 7- 00 07 MA ve AN 21 20 20 44 RT -H [address] 9 55 PH Z AR 10 MA 0- CY 25 #5 MG 91 TA B BU 45 01 02 30 30 00 ND Ac TN 96 -2 -2 .0 00 L- ti OP 30 8- 4- 00 07 MA ve IO 14 20 20 44 RT N 20 17 17 39 HC 5 72 PH L AR XL MA CY 30 0 #5 MG 91 TA BL ET LO [address] [facility] SA 18 -2 -2 .0 00 L- ti RT 00 8- 4- 00 07 MA ve AN 21 20 20 44 RT -H [address] 9 55 PH Z AR 10 MA 0- CY 25 #5 MG 91 TA B Procedures Procedure DOS Code Location Performer Comment CONTINU E0601 ANJEL ANJEL S 7 HOME HOME POSITIVE MEDICAL MEDICAL AIRWAY EQUIPME EQUIPME PRESSURE DEVICE FULL FACE A7030 ANJEL HOBBS MASK 7 HOME HOME USED MEDICAL MEDICAL W/POS EQUIPME EQUIPME ARWAY PRESS DEVICE EA FILTER A7038 ANJEL BINGHAMRELL DISPBL 7 HOME HOME USED MEDICAL MEDICAL W/POS EQUIPME EQUIPME ARWAY PRESSURE DEVICE FILTER A7039 ANJEL BINGHAMRELL NON 7 HOME HOME DISPBL MEDICAL MEDICAL USED EQUIPME EQUIPME W/POS ARWAY PRESS DEVICE HUMDIFIR E0562 ANJEL ANJEL HEATED 7 HOME HOME USED MEDICAL MEDICAL W/POS EQUIPME EQUIPME ARWAY PRESSURE DEVICE HEADGEAR A7035 ANJEL HOBBS USED 7 HOME HOME W/POSITIV MEDICAL MEDICAL E AIRWAY EQUIPME EQUIPME PRESSURE DEVICE TUBING A7037 ANJEL HOBBS USED WITH 7 HOME HOME POSITIVE MEDICAL MEDICAL AIRWAY EQUIPME EQUIPME PRESSURE DEVICE CONTINUOU E0601 ANJEL HOBBS S 7 HOME HOME POSITIVE MEDICAL MEDICAL AIRWAY EQUIPME EQUIPME PRESSURE DEVICE DEHYDROEP 47119 [facility] IANDROSTE 7 [facility] [place] [address] LAB ALTON LAB ALTON TESTOSTER 7 [facility] [place] [address] LAB [facility] LAB ALTON ZINC 7 ASHLEY ASHLEY HOLDINGS HOLDINGS GONADOTRO 818[address] LAB AL[facility] LAB ALTON PIN 7 ASHLEY ASHLEY LUTEINIZI HOLDINGS HOLDINGS NG HORMONE GONADOTRO 59949 [facility] PIN 7 [facility] FOLLICLE HOLDINGS [place] [address] LAB [facility] LAB ALTON TESTOSTER 7 [facility] ONE FREE HOLDINGS HOLDINGS COMPREHEN 97239 LAB [facility] SIVE 7 [facility] METABOLIC HOLDINGS HOLDINGS PANEL SLEEP STD 09324 [facility] COLIN AIRFLOW 7 [facility] HRT INC INC RATE&O2 SAT EFFORT [place] COLLECTIO 31267 Dave CISNEROS N VENOUS 7 STUART ESPANA B[place] [address] [facility] FREE 7 [facility] [place] [address] LAB [facility] THYROID 7 [facility] STIMULATI HOLDINGS HOLDINGS NG HORMONE TSH CREATINE 50870 D[facility] COLIN KINASE MB 7 [facility] FRACTION INC INC ONLY COMPREHEN 58540 [facility] COLIN SIVE 7 [facility] METABOLIC INC INC PANEL UNCLASSIF J3490 D[facility] COLIN IED DRUGS 7 [facility] INC INC ECG 19189 DIXIE ESPARZA ROUTINE 7 [facility] W/LEAST P 12 LDS I&R ONLY CREATINE 35815 [facility] COLIN KINASE 7 [facility] TOTAL INC INC ECG 43417 [facility] COLIN ROUTINE 7 [facility] ECG INC INC W/LEAST 12 LDS TRCG ONLY W/O I&R RADIOLOGI 11262 [facility] C EXAM 7 MEDICAL CHEST 2 IMAGING VIEWS [place] FRONTAL&[place] [address] [facility] COLIN TROPONIN 7 [facility] QUANTITAT INC INC ESTEBAN BLOOD 96145 [facility] COLIN COUNT 7 [facility] COMPLETE INC INC AUTO&AUTO DIFRNTL WBC THER 27189 D[facility] COLIN PROPH/DX 7 [facility] NJX IV INC INC PUSH SINGLE/1S T SBST/DRUG ECG 83203 [facility] COLIN ROUTINE 7 [facility] ECG INC INC W/LEAST 12 LDS TRCG ONLY W/O I&R ECG 15460 [facility] ANJALI ROUTINE 7 PHYSICIAN ECG S GROUP W/LEAST 12 LDS I&R ONLY UNCLASSIF J3490 D[facility]IE COLIN IED DRUGS 7 [facility] INC INC ECG 46145 DIXIE SOSA JR ROUTINE 7 [facility] W/LEAST P 12 LDS I&R ONLY UNCLASSIF J3490 DIXIE COLIN IED DRUGS 7 [facility] INC INC CREATINE 67762 D[facility]IE COLIN KINASE MB 7 [facility] FRACTION INC INC ONLY COMPREHEN 85428 D[facility] COLIN SIVE 7 [facility] METABOLIC INC INC PANEL ECG 79073 [facility] COLIN ROUTINE 7 [facility] ECG INC INC W/LEAST 12 LDS TRCG ONLY W/O I&R RADIOLOGI 37741 [facility] C EXAM 7 MEDICAL CHEST 2 IMAGING VIEWS ASS FRONTAL&L ATERAL CREATINE 87014 D[facility]IE COLIN KINASE 7 [facility] TOTAL INC INC BLOOD 18650 [facility] COLIN COUNT 7 [facility] COMPLETE INC INC AUTO&[place] [address] [facility] COLIN TROPONIN 7 [facility] QUANTITAT INC INC ESTEBAN RADEX 89147 MIKE FINE ANKLE 6 COMPLETE MINIMUM 3 VIEWS RADEX 38215 MIKE FINE FOOT 6 COMPLETE MINIMUM 3 VIEWS ECG 49933 [facility] COLIN ROUTINE 6 [facility] ECG INC INC W/LEAST 12 LDS TRCG ONLY W/O I&R ECG 52269 [facility] ANJALI ROUTINE 6 PHYSICIAN MAT ECG S GROUP W/LEAST 12 LDS I&R ONLY LIPID 68765 A C KILPELA PANEL 6 [place] [address] LAB ALTON LAB ALTON TESTOSTER 6 ASHLEY ASHLEY ONE TOTAL HOLDINGS HOLDINGS ECHO 16568 BRITNI LEYVA TRANSTHOR 6 MEDICAL LINDA C R-T 2D SERV W/WO FOUNDATIO M-MODE N REC F-UP/LMTD ECG 84581 [facility] ANJALI ROUTINE 6 PHYSICIAN MAT ECG S GROUP W/LEAST 12 LDS I&R ONLY ECG 44023 D[facility]IE URBINAON ROUTINE 6 [facility] ECG INC INC W/LEAST 12 LDS TRCG ONLY W/O I&R RADIOLOGI 63468 D[facility]IE COLIN C EXAM 6 [facility] CHEST 2 INC INC VIEWS FRONTAL&L ATERAL CV STRS 98867 [facility] COLIN TST 6 [facility] XERS&/OR [place] [address] DIXIE DIXIE RETROPERI 6 [facility] TONEAL INC [place] W/[place] [address] [place] [facility] RETROPERI 6 MEDICAL TONEAL IMAGING REAL TIME ASS W/IMAGE LIMITED ECHO 80667 DIXIE DIXIE TTHRC R-T 6 [facility] 2D INC INC W/WOM-MOD E COMPL SPEC&COLR D ECG 97792 [facility] ROUTINE 6 PHYSICIAN MAT ECG S GROUP W/LEAST 12 LDS I&R ONLY ECG 24602 DIXIECHARIS URBINAON ROUTINE 6 [facility] ECG INC INC W/LEAST 12 LDS TRCG ONLY W/O I&R ECG 13168 A C KILPELA ROUTINE 6 STUART ESPANA JEDave ECG PSC W/LEAST 12 LDS W/I&R BLOOD 81948 A C KILPELA COUNT 6 STUART ESPANA JEA COMPLETE PSC AUTO&AUTO DIFRNTL WBC HEMOGLOBI 42627 A C KILPELA N 6 STUART ADEN GLYCOSYLDave [facility] A1C Encounters Encounter Start End Date Code Location Performer Type Date HOSPITAL DIXIE - 7 7 [facility]PATIEN [facility] T OFFICE 79631 A Omer CISNEROS OUTPATIEN 7 7 STUART ESPANA T VISIT PSC 15 MINUTES EMERGENCY 26402 DIXIE 7 7 [facility] T VISIT [facility]IGH/URGE NT SEVERITY HOSPITAL DIXIE - 7 7 [facility] DIXIE - [address] [facility] OUTPATIEN [facility] T OFFICE 74258 [facility] ANJALI OUTPATIEN 7 7 PHYSICIAN T VISIT S GROUP 25 MINUTES EMERGENCY 56623 [facility] T VISIT HIGH/URGE NT SEVERITY HOSPITAL DIXIE - 7 7 [facility] OUTPATIEN [facility] T OFFICE 73615 MIKE FINE OUTPATIEN 6 6 T NEW 30 MINUTES OFFICE 12168 [facility] STONE OUTPATIEN 6 6 PHYSICIAN T VISIT GROUP 25 MINUTES OFFICE 58872 [facility] ANJALI OUTPATIEN 6 6 PHYSICIAN MAT T VISIT S GROUP 25 MINUTES HOSPITAL DIXIE - 6 6 [facility] OUTPATIEN [facility] T OFFICE 62447 A Omer MARTINES OUTPATIEN 6 6 STUART ADEN T VISIT PSC 25 MINUTES OFFICE 65958 A C CONRAD OUTPATIEN 6 6 STUART ADEN T VISIT PSC 15 MINUTES HOSPITAL DIXIE - 6 6 [facility] OUTPATIEN [facility] T OFFICE 79031 [facility] ANJALI OUTPATIEN 6 6 PHYSICIAN MAT T VISIT S GROUP 25 MINUTES HOSPITAL DIXIE - 6 6 [facility] T OFFICE 90618 Dave MARTINES OUTPATIEN 6 6 STUART Faustin VISIT [facility] 15 MINUTES [facility] DIXIE - 6 6 [facility] OUTPATIEN [facility] T OFFICE 59836 [facility] ANJALI [facility]PATIEN 6 6 PHYSICIAN RIKKI GARCIA 45 S GROUP MINUTES
--- OUTSIDE RECORDS SUMMARY | 2017-05-18 17:43 | External Medical Summary Rpt | CCD ---
Author Author , PRAVIN Organization [employer] Address Unknown Phone Care Team Providers Care Community Health Specialist Name Role Phone A Omer DAVIDSON MD PSC, Dave Unavailable Unavailable Omer DAVIDSON MD [facility] LOVELACE Unavailable Unavailable BESSON, BESSON Unavailable Unavailable NORIEGA, NORIEGA Unavailable Unavailable NORIEGA ALL, NORIEGA ALL Unavailable Unavailable FINE, FINE Unavailable Unavailable CISNEROS, CISNEROS Unavailable Unavailable [facility] Unavailable Unavailable INC, [facility] Unavailable Unavailable HOSPITAL P, [facility], Unavailable Unavailable [facility], Unavailable Unavailable [facility] Unavailable [facility]available [facility], [facility] KILPELA JEA, KILPELA Unavailable [...] [facility] R079 CHEST PAIN 09-29-2016 [place] [facility] [id number] [place] EFF 09-29-2016 [facility] OTH RX MEDS [facility] P SUBSTANCES INIT ENC [id number] UNS PLACE 09-29-2016 [facility] UNS NON [facility] P PLACE OF OCCUR EXT Z720 TOBACCO USE 09-29-2016 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 DUE GROUP TO EXCESS CALORIES G4700 INSOMNIA 04-18-2016 A Omer DAVIDSON UNSPECIFIED PSC R635 ABNORMAL 04-18-2016 A Omer DAVIDSON WEIGHT GAIN PSC E785 HYPERLIPIDE 04-05-2016 [facility] UNSPECIFIED HOLDINGS 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 03-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 INSUFFICIEN CY I361 NONRHEUMATI 03-21-2016 [facility] TRICUSPID [facility] INSUFFICIEN CY I371 NONRHEUMATI 03-21-2016 [facility] PULMONARY [facility] INSUFFICIEN CY R0602 SHORTNESS 03-21-2016 [facility] E669 OBESITY 03-19-2016 [facility] UNSPECIFIED PHYSICIANS GROUP Medications Na ND [...] 60 7- 1- 00 07 MA ve NH 00 20 20 50 RT ED 10 17 17 28 NI 3 15 PH SO AR LO MA NE CY 4 #5 MG 91 DO SE PK AZ 59 08 09 6. 5 00 OH Ac IT 76 -0 -0 00 00 L- ti HR 23 7- 1- 0 07 MA ve OM 06 20 20 50 RT YC 00 17 17 28 IN 1 16 PH AR 25 MA 0 CY MG #5 TA 91 BL ET CH 78 08 09 17 25 00 OH Ac LO 11 -0 -0 7. 00 L- ti RA 20 7- 1- 00 08 MA ve SE 01 20 20 0 84 RT PT 10 17 17 06 IC 3 18 PH AR SO MA RE CY TH #5 RO 91 AT SP RA Y LO 68 07 08 30 30 00 OH Ac SA 18 -2 -2 .0 00 L- ti RT 00 7- 5- 00 07 MA ve AN 21 20 20 50 RT -H [address] 9 76 PH Z AR 10 MA 0- CY 25 #5 MG 91 TA B VE 00 07 08 30 30 00 OH Ac NL 09 -2 -2 .0 00 L- ti AF 37 7- 5- 00 07 MA ve AX 38 20 20 50 RT IN 45 17 17 09 E 6 83 PH HC AR L MA ER CY 37 #5 .5 91 MG CA P VE 00 06 07 30 30 00 OH Ac NL 09 -1 -1 .0 00 L- ti AF 37 9- 4- 00 07 MA ve AX 38 20 20 49 RT IN 45 17 17 43 E 6 73 PH HC AR L MA ER CY 37 #5 .5 91 MG CA P LO 68 06 07 30 30 00 OH Ac SA 18 -1 -1 .0 00 L- ti RT 00 9- 4- 00 07 MA ve AN 21 20 20 49 RT -H [address] 9 75 PH Z AR 10 MA 0- CY 25 #5 MG 91 TA B LO 68 05 30 30 00 OH Ac SA 18 -0 -0 .0 00 L- ti RT 00 5- 2- 00 07 MA ve AN 21 20 20 48 RT -H [address] 9 57 PH Z AR 10 MA 0- CY 25 #5 MG 91 TA B VE 00 05 06 30 30 00 OH Ac NL 09 -0 -0 .0 00 [...] VE 00 04 04 30 30 00 OH Ac NL 09 -0 -2 .0 00 L- ti AF 37 4- 8- 00 07 MA ve AX 38 20 20 48 RT IN 45 17 17 04 E 6 58 PH HC AR L MA ER CY 37 #5 .5 91 MG CA P LO 68 03 04 30 30 00 OH Ac SA 18 -1 -0 .0 00 L- ti RT 00 1- 7- 00 07 MA ve AN 21 20 20 44 RT -H [address] 9 55 PH Z AR 10 MA 0- CY 25 #5 MG 91 TA B BU 45 01 02 30 30 00 OH Ac NH 96 -2 -2 .0 00 L- ti OP 30 8- 4- 00 07 MA ve IO 14 20 20 44 RT N 20 17 17 39 HC 5 72 PH L AR XL MA CY 30 0 #5 MG 91 TA BL ET LO 68 01 30 30 00 [facility] SA 18 -2 -2 .0 00 L- [...] MEDICAL AIRWAY EQUIPME EQUIPME PRESSURE DEVICE DEHYDROEP 01346 [facility] IANDROSTE 7 [facility] [place] [address] LAB [facility] TESTOSTER 7 [facility] [place] [address] [facility] LAB [facility] ZINC 7 [facility] [place] GON[place] 11807 [facility] LAB AL[facility] PIN 7 [facility] ASHLEY LUTEINIZI HOLDINGS [place] NG HORMONE GONADOTRO 36840 [facility] PIN 7 [facility] FOLLICLE [place] [address] LAB [facility] LAB ALTON TESTOSTER 7 [facility] ONE FREE [place] COMPREHEN 16254 [facility] LAB AL[facility] SIVE 7 [facility] METABOLIC [facility] PANEL SLEEP STD 45516 [facility] COLIN AIRFLOW 7 [facility] HRT INC INC RATE&O2 SAT EFFORT UNATT COLLECTIO 40962 Dave CISNEROS N VENOUS 7 ST[facility] [place] [address] LAB AL[facility] LAB ALTON FREE 7 [facility] [place] [address] LAB [facility] LAB [facility] THYROID 7 [facility] STIMULATI HOLDINGS HOLDINGS NG HORMONE TSH CREATINE 79571 DIXIE COLIN KINASE MB 7 [facility] FRACTION INC INC ONLY COMPREHEN 19101 [facility] COLIN SIVE 7 [facility] METABOLIC INC INC PANEL UNCLASSIF J3490 D[facility] COLIN IED DRUGS 7 [facility] INC INC ECG 65594 DIXIE ESPARZA ROUTINE 7 [facility] W/LEAST P 12 LDS I&R ONLY CREATINE 23870 D[facility] COLIN KINASE 7 [facility] TOTAL INC INC ECG 35194 [facility] COLIN ROUTINE 7 [facility] ECG INC INC W/LEAST 12 LDS TRCG ONLY W/O I&R RADIOLOGI 48114 [facility] C EXAM 7 MEDICAL CHEST 2 IMAGING VIEWS ASS FRONTAL&[place] [address] D[facility] COLIN TROPONIN 7 [facility] QUANTITAT INC INC ESTEBAN BLOOD 31698 D[facility] COLIN COUNT 7 [facility] COMPLETE INC INC AUTO&AUTO DIFRNTL WBC THER 50721 DIXIE COLIN PROPH/DX 7 [facility] ER HOSP NJX IV INC INC PUSH SINGLE/1S T SBST/DRUG ECG 49477 DIXIE COLIN ROUTINE 7 [facility] ECG INC INC W/LEAST 12 LDS TRCG ONLY W/O I&R ECG 51733 [facility] ANJALI ROUTINE 7 PHYSICIAN ECG S GROUP W/LEAST 12 LDS I&R ONLY UNCLASSIF J3490 DIXIE COLIN IED DRUGS 7 [facility] INC INC ECG 71097 DIXIE SOSA JR ROUTINE 7 [facility] W/LEAST P 12 LDS I&R ONLY UNCLASSIF J3490 DIXIE COLIN IED DRUGS 7 [facility] INC INC CREATINE 62786 DIXIE COLIN KINASE MB 7 [facility] FRACTION INC INC ONLY COMPREHEN 27663 DIXIE COLIN SIVE 7 [facility] METABOLIC INC INC PANEL ECG 71669 DIXIE COLIN ROUTINE 7 [facility] ECG INC INC W/LEAST 12 LDS TRCG ONLY W/O I&R RADIOLOGI 27835 [facility] C EXAM 7 MEDICAL CHEST 2 IMAGING VIEWS ASS FRONTAL&L ATERAL CREATINE 88529 D[facility]IE COLIN KINASE 7 [facility] TOTAL INC INC BLOOD 81227 D[facility]IE COLIN COUNT 7 [facility] COMPLETE INC INC AUTO&[place] [address] D[facility]IE COLIN TROPONIN 7 [facility] QUANTITAT INC INC ESTEBAN RADEX 10032 MIKE FINE ANKLE 6 COMPLETE MINIMUM 3 VIEWS RADEX 86519 MIKE FINE FOOT 6 COMPLETE MINIMUM 3 VIEWS ECG 80907 [facility] COLIN ROUTINE 6 [facility] ECG INC INC W/LEAST 12 LDS TRCG ONLY W/O I&R ECG 62645 [facility] ANJALI ROUTINE 6 PHYSICIAN MAT ECG S GROUP W/LEAST 12 LDS I&R ONLY LIPID 68454 A C KILPELA PANEL 6 [place] [address] LAB ALTON LAB ALTON TESTOSTER 6 ASHLEY ASHLEY [employer] HOLD[place] ECHO 66838 BRITNI LEYVA TRANSTHOR 6 MEDICAL LINDA C R-T 2D SERV W/WO FOUNDATIO M-MODE N REC F-UP/LMTD ECG 20446 [facility] ANJALI ROUTINE 6 PHYSICIAN MAT ECG S GROUP W/LEAST 12 LDS I&R ONLY ECG 18271 D[facility]IE URBINAON ROUTINE 6 [facility] ECG INC INC W/LEAST 12 LDS TRCG ONLY W/O I&R RADIOLOGI 57495 DIXIE COLIN C EXAM 6 [facility] CHEST 2 INC INC VIEWS FRONTAL&L ATERAL CV STRS 82503 D[facility]IE COLIN TST 6 [facility] XERS&/OR [place] [address] DIXIE DIXIE RETROPERI 6 [facility] TONEAL INC [place] W/[place] [address] [place] NORIEGA ALL RETROPERI 6 MEDICAL TONEAL IMAGING REAL TIME ASS W/IMAGE LIMITED ECHO 73293 DIXIE DIXIE TTHRC R-T 6 [facility] 2D INC INC W/WOM-MOD E COMPL SPEC&COLR D ECG [address] [facility] ROUTINE 6 PHYSICIAN MAT ECG S GROUP W/LEAST 12 LDS I&R ONLY ECG 50638 DIXIECHARIS URBINAON ROUTINE 6 [facility] ECG INC INC W/LEAST 12 LDS TRCG ONLY W/O I&R ECG 84612 A C KILPELA ROUTINE 6 STUART ESPANA JEDave ECG PSC W/LEAST 12 LDS W/I&R BLOOD 48275 A C KILPELA COUNT 6 TSUART ESPANA JEA COMPLETE PSC AUTO&AUTO DIFRNTL WBC HEMOGLOBI 07629 A C KILPELA N 6 STUART ADEN GLYCOSYLDave [facility] A1C Encounters Encounter Start End Date Code Location Performer Type Date HOSPITAL DIXIE - 7 7 [facility] OUTPATIEN [facility] T OFFICE 77396 A Omer CISNEROS OUTPATIEN 7 7 STUART ESPANA T VISIT PSC 15 MINUTES EMERGENCY 11163 DIXIE 7 7 [facility] T VISIT HIGH/URGE NT SEVERITY HOSPITAL DIXIE - 7 7 [facility] OUTPATIEN [facility] HOSPITAL DIXIE - 7 7 [facility] OUTPATIEN [facility] T OFFICE 79744 [facility] ANJALI OUTPATIEN 7 7 PHYSICIAN T VISIT S GROUP 25 MINUTES EMERGENCY 63017 [facility] T VISIT HIGH/URGE NT SEVERITY HOSPITAL DIXIE - 7 7 [facility] OUTPATIEN [facility] T OFFICE 05028 MIKE FINE OUTPATIEN 6 6 T NEW 30 MINUTES OFFICE 58107 [facility] STONE OUTPATIEN 6 6 PHYSICIAN T VISIT GROUP 25 MINUTES OFFICE 36036 [facility] ANJALI OUTPATIEN 6 6 PHYSICIAN MAT T VISIT S GROUP 25 MINUTES HOSPITAL DIXIE - 6 6 [facility] OUTPATIEN [facility] T OFFICE 97863 A Omer MARTINES OUTPATIEN 6 6 STUART ADEN T VISIT PSC 25 MINUTES OFFICE 23438 A C CONRAD OUTPATIEN 6 6 STUART ADEN T VISIT PSC 15 MINUTES HOSPITAL DIXIE - 6 6 [facility] OUTPATIEN [facility] T OFFICE 68978 [facility] ANJALI OUTPATIEN 6 6 PHYSICIAN MAT T VISIT S GROUP 25 MINUTES HOSPITAL DIXIE - 6 6 [facility] OUTPATIEN [facility] T OFFICE 48267 Dave MARTINES OUTPATIEN 6 6 STUART Faustin VISIT [facility] 15 MINUTES [facility] DIXIE - 6 6 [facility] OUTPATIEN [facility] T OFFICE 70304 [facility] ANJALI OUTPATIEN 6 6 PHYSICIAN RIKKI GARCIA 45 S GROUP MINUTES
--- OUTSIDE RECORDS SUMMARY | 2017-05-18 17:44 | External Medical Summary Rpt ---
Author Author PRAVIN Pham, [employer] Organization [employer] Address Unknown Phone Unavailable Results Streptococcus pyogenes Ag [Presence] in Unspecified specimen Observa Value Referen Units Interpr Notes Date tion ce etation Range Strepto NOT NOTDETE No No LOT # Feb 24 coccus DETECTE CTED informa informa N/A EXP 2016 pyogene D tion in tion in DATE 4:50 PM s Ag source source N/A [Presen data data ce] in Unspeci fied specime n
--- OUTSIDE RECORDS SUMMARY | 2017-05-18 17:44 | External Medical Summary Rpt | CCD ---
Demographics Preferred Language Malian Marital Status Unknown Orthodox Affiliation Unknown Race Unknown Ethnic Group Unknown Author Author , PRAVIN COSTELLO Address Unknown Phone Immunization No patient found.
--- OUTSIDE RECORDS SUMMARY | 2017-05-18 17:44 | External Medical Summary Rpt | CCD ---
Demographics Preferred Language Pakistani Marital Status Unknown Anabaptist Affiliation Unknown Race Unknown Ethnic Group Unknown Author Author , PRAVIN COSTELLO Address Unknown Phone Immunization No patient found.
[2017-05-18 18:01] LABS: BUN 9 mg/dL (7-18); GFR (ESTIMATED) 95 ML/MIN (>60)
--- OUTSIDE RECORDS SUMMARY | 2017-05-18 19:21 | External Medical Summary Rpt | CCD ---
Author Author , PRAVIN COSTELLO Address Unknown Phone [email or web address] [employer] Care Team Providers Care Creative Arts Therapist Name Role Phone A Omer DAVIDSON MD PSC, Dave Unavailable Unavailable Omer DAVIDSON MD PSC [facility] LOVELACE Unavailable Unavailable BESSON, BESSON Unavailable Unavailable NORIEGA, NORIEGA Unavailable Unavailable NORIEGA ALL, NORIEGA ALL Unavailable Unavailable FINE, FINE Unavailable Unavailable CISNEROS, CISNEROS Unavailable Unavailable [facility] Un[facility] Un[facility], [facility] Unavailable Unavailable HOSPITAL P, [facility], [facility]available [facility]available [facility], Unavailable [facility]available [facility] Un[facility] Un[facility], [facility] KILPELA JEA, KILPELA Unavailable [...] [facility] R079 CHEST PAIN 09-29-2016 [facility] [id number] ADVERS EFF 09-29-2016 [facility] OTH RX MEDS [facility] P SUBSTANCES INIT ENC [id number] UNS PLACE 09-29-2016 [facility] UNS NON [facility] P PLACE OF OCCUR EXT Z720 TOBACCO USE 09-29-2016 [facility] R400 SOMNOLENCE 09-18-2016 [facility] R7989 OTHER SPEC 09-18-2016 [facility] ABNORMAL PHYSICIANS FINDINGS GROUP BLOOD CHEMISTRY R931 ABNORMAL 09-18-2016 [facility] FINDINGS ON PHYSICIANS DX IMAGING GROUP HEART & COR CIRC [id number] PAIN IN 07-08-2016 [facility] UNSPECIFIED ANKLE M2570 OSTEOPHYTE 07-08-2016 [facility] UNSPECIFIED JOINT M7730 CALCANEAL 07-08-2016 [facility] SPUR UNSPECIFIED FOOT [id number] PAIN IN 07-08-2016 [facility] RIGHT FOOT J020 STREPTOCOCC 06-23-2016 [facility] AL PHYSICIAN PHARYNGITIS GROUP 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 E669 OBESITY 03-19-2016 [facility] UNSPECIFIED PHYSICIANS GROUP I10 ESSENTIAL (PRIMARY) HYPERTENSIO [...] ME 59 08 09 21 6 00 [place] Ac TH 74 -0 -0 .0 00 L- ti YL 60 7- 1- 00 07 MA ve CO 00 20 20 50 RT ED 10 17 17 28 NI 3 15 PH SO AR LO MA NE CY 4 #5 MG 91 DO SE PK AZ 59 08 09 6. 5 00 KS Ac IT 76 -0 -0 00 00 L- ti HR 23 7- 1- 0 07 MA ve OM 06 20 20 50 RT YC 00 17 17 28 IN 1 16 PH AR 25 MA 0 CY MG #5 TA 91 BL ET CH 78 08 09 17 25 00 KS Ac LO 11 -0 -0 7. 00 L- ti RA 20 7- 1- 00 08 MA ve SE 01 20 20 0 84 RT PT 10 17 17 06 IC 3 18 PH AR SO MA RE CY TH #5 RO 91 AT SP RA Y LO 68 07 08 30 30 00 KS Ac SA 18 -2 -2 .0 00 L- ti RT 00 7- 5- 00 07 MA ve AN 21 20 20 50 RT -H [address] 9 76 PH Z AR 10 MA 0- CY 25 #5 MG 91 TA B VE 00 07 08 30 30 00 KS Ac NL 09 -2 -2 .0 00 L- ti AF 37 7- 5- 00 07 MA ve AX 38 20 20 50 RT IN 45 17 17 09 E 6 83 PH HC AR L MA ER CY 37 #5 .5 91 MG CA P VE 00 06 07 30 30 00 KS Ac NL 09 -1 -1 .0 00 L- ti AF 37 9- 4- 00 07 MA ve AX 38 20 20 49 RT IN 45 17 17 43 E 6 73 PH HC AR L MA ER CY 37 #5 .5 91 MG CA P LO 68 06 07 30 30 00 KS Ac SA 18 -1 -1 .0 00 L- ti RT 00 9- 4- 00 07 MA ve AN 21 20 20 49 RT -H [address] 9 75 PH Z AR 10 MA 0- CY 25 #5 MG 91 TA B LO 68 05 06 30 30 00 KS Ac SA 18 -0 -0 .0 00 L- ti RT 00 5- 2- 00 07 MA ve AN 21 20 20 48 RT -H [address] 9 57 PH Z AR 10 MA 0- CY 25 #5 MG 91 TA B VE 00 05 06 30 30 00 [place] Ac NL 09 -0 -0 .0 00 L- ti AF 37 5- 2- 00 07 MA ve AX 38 20 20 48 RT IN 45 17 17 04 E 6 58 PH HC AR L MA ER CY 37 #5 .5 91 MG CA P LO 68 04 05 30 30 00 KS Ac SA 18 -1 -0 .0 00 L- ti RT 00 2- 5- 00 07 MA ve AN 21 20 20 44 RT -H [address] 9 55 PH Z AR 10 MA 0- CY 25 #5 MG 91 TA B VE 00 04 04 30 30 00 [facility] NL 09 -0 -2 .0 00 L- ti AF 37 4- 8- 00 07 MA ve AX 38 20 20 48 RT IN 45 17 17 04 E 6 58 PH HC AR L MA ER CY 37 #5 .5 91 MG CA P LO 68 03 04 30 30 00 [facility] SA 18 -1 -0 .0 00 L- ti RT 00 1- 7- 00 07 MA ve AN 21 20 20 44 RT -H [address] 9 55 PH Z AR 10 MA 0- CY 25 #5 MG 91 TA B BU 45 01 02 30 30 00 KS Ac CO 96 -2 -2 .0 00 L- ti OP 30 8- 4- 00 07 MA ve IO 14 20 20 44 RT N 20 17 17 39 HC 5 72 PH L AR XL MA CY 30 0 #5 MG 91 TA BL ET LO 68 01 02 30 30 00 [facility] SA 18 -2 -2 .0 00 [...] 017 K/mm3 ed monocyt 17:20 e count [place] % = 3.1 % 1.7-9.3 complet 017 [...] ed vidhya 17:20 count (number /volume ) Blood lactic acid measurement (moles/vol (05-18-2017 17:20) Blood 2 = 1.4 0.4-2.0 complet lactic 017 mmol/L ed acid 17:20 measure ment (moles/ vol Cardiac enzymes (05-18-2017 17:20) Serum = 0.9 0-4.0 complet or 017 U/L ed plasma 17:20 creatin e kinase MB (CK-M Serum < 0.5 0.0-3.6 complet or 017 ng/mL ed plasma 17:20 creatin e kinase MB measu Serum = 54 39-308 complet or 017 U/L ed plasma 17:20 creatin e kinase measure m Serum < 0.02 0.00-0. complet or 017 ng/mL 06 ed plasma 17:20 troponi n i.cardi ac measu Comprehensive metabolic panel (05-18-2017 17:20) Serum = 0.9 1.1-1.8 complet or 017 ed plasma 17:20 albumin /globul in mass ra Serum = 3.6 3.4-5.0 complet or 017 gm/dL ed plasma 17:20 albumin measure ment (mas Serum = 100 46-116 complet or 017 U/L ed plasma 17:20 alkalin e phospha tase sherrell Serum = 0.6 0.2-1.0 complet or 017 mg/dL ed plasma 17:20 total bilirub in measure m Serum = 9 7-18 complet or 017 mg/dL ed plasma 17:20 urea nitroge n measure men Serum = 8.7 8.5-10. complet or 017 mg/dL 1 ed plasma 17:20 calcium measure ment (mas Serum = 100 98-107 complet or 017 mmoL/L ed plasma 17:20 chlorid e measure ment (mo Carbon = 28 21.0-32 complet dioxide 017 mmoL/L .0 ed 17:20 measure ment Serum 2 = 0.9 0.70-1. complet or 017 mg/dL 30 ed plasma 17:20 creatin ine measure ment ( Estimat 2 = 255 50-200 complet ion of 017 ML/MIN ed creatin 17:20 ine renal clearan ce Estimat = 95 >60 complet ed 017 ML/MIN ed glomeru 17:20 lar filtrat ion rate (GF Comment: REFERENCE RANGE: >60 ML/MIN/1.73 SQUARE METERS Comment: If this patient is -Fijian, then multiply the Comment: result by 1.210. Serum = 4.0 1.3-3.2 complet globuli 017 gm/dL ed n 17:20 measure ment (mass/v olume) Serum = 114 74-106 complet or 017 mg/dL ed plasma 17:20 glucose measure ment (mas Serum 2 = 3.3 3.5-5.1 complet potassi 017 mmoL/L ed um 17:20 measure ment Serum 2 = 137 136-145 complet sodium 017 mmoL/L ed measure 17:20 ment Serum 2 = 49 15-37 complet or 017 U/L ed plasma 17:20 asparta te aminotr ansfera ALT = 102 12-78 complet (SGPT) 017 U/L ed ser/deloris 17:20 s Protein = 7.6 6.4-8.2 complet total 017 gm/dL ed ser/deloris 17:20 s Brain natriuretic peptide (05-18-2017 17:20) Brain 2 = 11 0-100 complet natriur 017 pg/mL ed etic 17:20 peptide Streptococcus pyogenes Ag [Presence] in Unspecified specimen (02-24-2017 16:50) Strepto NOT NOTDETE complet coccus 0[address]ED ed pyogene 16:50 D s Ag [Presen ce] in Unspeci fied specime n Procedures Procedure DOS Code Location Performer Comment CONTINUOU E0601 ANJEL HOBBS S 7 HOME [...] MEDICAL AIRWAY EQUIPME EQUIPME PRESSURE DEVICE DEHYDROEP 77506 [facility] IANDROSTE 7 [facility]LEY ASHLEY MICHAEL HOLDINGS HOLDINGS SLEEP STD 04347 [facility] AIRFLOW 7 [facility] HRT INC INC RATE&O2 [place] [address] [facility] TESTOSTER 7 ASHLEY [place] [address] [facility] ZINC 7 ASHLEY ASHLEY HOLDINGS HOLDINGS GONADOTRO 90458 [facility] PIN 7 ASHLEY ASHLEY LUTEINIZI HOLDINGS HOLDINGS NG HORMONE COLLECTIO 21616 Dave CISNEROS N VENOUS 7 STUART ESPANA BLOOD PSC VENIPUNCT URE COMPREHEN 91860 [facility] SIVE 7 ASH[facility] ASHLEY METABOLIC HOLDINGS HOLDINGS PANEL GONADOTRO 60950 [facility] PIN 7 ASHLEY ASHLEY FOLLICLE HOLDINGS [place] [address] [facility] TESTOSTER 7 ASHLEY [place] [address] [facility] FREE 7 ASHLEY ASH[place] [address] [facility] THYROID 7 ASHLEY ASHLEY STIMULATI HOLDINGS HOLDINGS NG HORMONE TSH CREATINE 37190 [facility] KINASE MB 7 [facility] FRACTION INC INC ONLY COMPREHEN 58802 [facility] SIVE 7 [facility] METABOLIC INC INC PANEL ECG 93892 [facility] ROUTINE 7 [facility] ECG INC INC W/LEAST 12 LDS TRCG ONLY W/O I&R CREATINE 70248 [facility] KINASE 7 [facility] [place] [place] [address] [facility] TROPONIN 7 [facility] QUANTITAT INC INC ESTEBAN BLOOD 37474 [facility] COUNT 7 [facility] COMPLETE INC INC AUTO&AUTO DIFRNTL WBC UNCLASSIF J3490 [facility] IED DRUGS 7 [facility] INC INC RADIOLOGI 90002 [facility] C EXAM 7 MEDICAL CHEST 2 IMAGING VIEWS ASS FRONTAL&L ATERAL ECG 94140 [facility] ESPARZA ROUTINE 7 [facility] W/LEAST P 12 LDS I&R ONLY ECG 41099 [facility] ROUTINE 7 PHYSICIAN ECG S GROUP W/LEAST 12 LDS I&R ONLY UNCLASSIF J3490 [facility] IED DRUGS 7 [facility] INC INC ECG 11482 [facility] ROUTINE 7 [facility] ECG INC INC W/LEAST 12 LDS TRCG ONLY W/O I&R THER 43180 [facility] PROPH/DX 7 [facility] NJX IV INC INC PUSH SINGLE/1S T SBST/DRUG CREATINE 08463 [facility] KINASE MB 7 [facility] FRACTION INC INC ONLY UNCLASSIF J3490 [facility] IED DRUGS 7 [facility] INC INC ECG 42259 [facility] ROUTINE 7 [facility] ECG INC INC W/LEAST 12 LDS TRCG ONLY W/O I&R COMPREHEN 89652 [facility] SIVE 7 [facility] METABOLIC INC INC PANEL CREATINE 02318 [facility] KINASE 7 [facility] TOTAL INC INC BLOOD 56803 [facility] COUNT 7 [facility] COMPLETE INC INC AUTO&[place] [address] [facility] TROPONIN 7 [facility] QUANTITAT INC INC ESTEBAN ECG 74207 D[facility] SOSA JR ROUTINE 7 [facility] W/LEAST P 12 LDS I&R ONLY RADIOLOGI 08185 [place] [facility] C EXAM 7 MEDICAL CHEST 2 IMAGING VIEWS ASS FRONTAL&L ATERAL RADEX 76105 MIKE FINE ANKLE 6 COMPLETE MINIMUM 3 VIEWS RADEX 68368 MIKE FINE FOOT 6 COMPLETE MINIMUM 3 VIEWS ECG 02822 [facility] ROUTINE 6 [facility] ECG INC INC W/LEAST 12 LDS TRCG ONLY W/O I&R ECG 01906 [facility] ROUTINE 6 PHYSICIAN MAT ECG S GROUP W/LEAST 12 LDS I&R ONLY LIPID 99901 A C CONRAD PANEL 6 [place] [address] [facility] TESTOSTER 6 ASHLEY ASHLEY ONE [employer]OTAL HOLDINGS HOLDINGS ECHO 51198 BRITNI LEYVA TRANSTHOR 6 [facility] C R-T 2D SERV W/WO FOUNDATIO M-MODE N REC F-UP/LMTD ECG 98338 [facility] ROUTINE 6 PHYSICIAN MAT ECG S GROUP W/LEAST 12 LDS I&R ONLY ECG 33439 [facility] ROUTINE 6 [facility] ECG INC INC W/LEAST 12 LDS TRCG ONLY W/O I&R CV STRS 86191 [facility] TST 6 [facility] XERS&/OR INC INC RX CONT ECG TRCG ONLY ECHO 12631 [facility] TTHRC R-T 6 [facility] 2D INC INC W/WOM-MOD E COMPL SPEC&[place] [address] [facility] RETROPERI 6 [facility] TONEAL INC [place] W/[place] [address] [facility] NORIEGA ALL RETROPERI 6 MEDICAL TONEAL IMAGING REAL TIME ASS W/IMAGE LIMITED RADIOLOGI 43084 [facility] C EXAM 6 [facility] CHEST 2 INC INC VIEWS FRONTAL&L ATERAL ECG 92530 [facility] ANJALI ROUTINE 6 PHYSICIAN MAT ECG S GROUP W/LEAST 12 LDS I&R ONLY ECG 48008 [facility] ROUTINE 6 [facility] ECG INC INC W/LEAST 12 LDS TRCG ONLY W/O I&R ECG 49396 A C KILPELA ROUTINE 6 STUART ESPANA JEA ECG PSC W/LEAST 12 LDS W/I&R BLOOD 78561 A C TAMIKAPELA COUNT 6 STUART ESP[facility] JEA COMPLETE PSC AUTO&AUTO DIFRNTL WBC HEMOGLOBI 90287 A C KILPELA N 6 STUART ESP[facility] JEA GLYCOSYLA PSC ISABELLE A1C Encounters Encounter Start End Date Code Location Performer Type Date OFFICE 60097 A Omer CISNEROS OUTPATISIMÓN 7 7 [facility] ESAPNA T VISIT PSC 15 MINUTES [facility]OSPITAL [facility] - 7 7 [facility] OUTPATIEN INC T HOSPITAL [facility] - 7 7 [facility] OUTPATIEN INC T EMERGENCY 84796 [facility] 7 7 [facility] DEPARTMEN INC T VISIT HIGH/URGE NT SEVERITY [facility]OSPITAL [facility] - 7 7 [facility] OUTPATIEN INC T OFFICE 11088 [facility] ANJALI OUTPATIEN 7 7 PHYSICIAN T VISIT S GROUP 25 MINUTES EMERGENCY 13773 [facility] 7 7 [facility] DEPARTMEN INC T VISIT HIGH/URGE NT SEVERITY HOSPITAL [facility] - 7 7 [facility] OUTPATIEN INC T OFFICE 43370 MIKE FINE OUTPATIEN 6 6 T NEW 30 MINUTES OFFICE 93356 [facility] STONE OUTPATIEN 6 6 PHYSICIAN T VISIT GROUP 25 MINUTES OFFICE 33471 [facility] ANJALI OUTPATIEN 6 6 PHYSICIAN MAT T VISIT S GROUP 25 MINUTES HOSPITAL [facility] - 6 6 [facility] OUTPATIEN INC T OFFICE 23681 A C KILPELA OUTPATIEN 6 6 STUART ADEN T VISIT [facility] 25 MINUTES OFFICE 12752 A C TAMIKAPELA OUTPATIEN 6 6 STUART ADEN T VISIT [facility] 15 MINUTES [facility] DIXIE - 6 6 [facility]PATIEN [facility] T OFFICE 20071 [facility] ANJALI OUTPATIEN 6 6 PHYSICIAN RIKKI Faustin VISIT S GROUP 25 MINUTES [facility] DIXIE - 6 6 [facility] OUTPATIEN [facility] T OFFICE 59007 A C KILPELA [facility]PATIEN 6 6 STUART Faustin VISIT [facility] 15 MINUT[facility] DIXIE - 6 6 [facility]PATIEN [facility] T OFFICE 96735 [facility] ANJALI OUTPATIEN 6 6 PHYSICIAN RIKKI Faustin NEW 45 S GROUP MINUTES
--- OUTSIDE RECORDS SUMMARY | 2017-05-18 19:21 | External Medical Summary Rpt | CCD ---
Author Author , PRAVIN COSTELLO Address Unknown Phone [email or web address] Care Team Providers Care Ground Operations Supervisor Name Role Phone A Omer DAVIDSON MD PSC, Dave Unavailable Unavailable Omer DAVIDSON MD PSC [facility] Unavailable Unavailable BESSON, BESSON Unavailable Unavailable NORIEGA, NORIEGA Unavailable Unavailable NORIEGA ALL, NORIEGA ALL Unavailable Unavailable FINE, FINE Unavailable Unavailable CISNEROS, CISNEROS Unavailable Unavailable [facility] Un[facility] Unavailable INC, [facility] Unavailable Unavailable HOSPITAL P, [facility], [facility]available Unavailable [facility], Unavailable Unavailable [facility] Un[facility] Unavailable IMAGING [...] PAIN 09-29-2016 [facility] [id number] ADVERS EFF 09-29-2016 [facility] OTH RX MEDS [facility] P SUBSTANCES INIT ENC [id number] UNS PLACE 09-29-2016 [facility] UNS NON [facility] P PLACE OF OCCUR EXT Z720 TOBACCO USE 09-29-2016 [facility] R400 SOMNOLENCE 09-18-2016 [facility] R7989 OTHER SPEC 09-18-2016 [facility] ABNORMAL PHYSICIANS FINDINGS GROUP BLOOD CHEMISTRY R931 ABNORMAL 09-18-2016 [facility] FINDINGS ON PHYSICIANS DX IMAGING GROUP HEART & COR CIRC [id number] PAIN IN 07-08-2016 [facility] UNSPECIFIED ANKLE M2570 OSTEOPHYTE 07-08-2016 [facility] UNSPECIFIED JOINT M7730 CALCANEAL 07-08-2016 [facility] SPUR UNSPECIFIED FOOT [id number] PAIN IN 07-08-2016 [facility] RIGHT FOOT J020 STREPTOCOCC 06-23-2016 [facility] AL PHYSICIAN PHARYNGITIS GROUP 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 DUE GROUP TO EXCESS CALORIES G4700 INSOMNIA 04-18-2016 A Omer DAVIDSON UNSPECIFIED PSC R635 ABNORMAL 04-18-2016 A Omer DAVIDSON WEIGHT GAIN PSC E785 HYPERLIPIDE 04-05-2016 [facility] UNSPECIFIED HOLDINGS 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 03-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 [facility] INSUFFICIEN CY I361 NONRHEUMATI 03-21-2016 [facility] TRICUSPID [facility] INSUFFICIEN CY I371 NONRHEUMATI 03-21-2016 [facility] PULMONARY [facility] INSUFFICIEN CY R0602 SHORTNESS 03-21-2016 [facility] E669 OBESITY 03-19-2016 [facility] UNSPECIFIED PHYSICIANS GROUP I10 ESSENTIAL (PRIMARY) HYPERTENSIO [...] ME 59 08 09 21 6 00 NC Ac TH 74 -0 -0 .0 00 L- ti YL 60 7- 1- 00 07 MA ve NH 00 20 20 50 RT ED 10 17 17 28 NI 3 15 PH SO AR LO MA NE CY 4 #5 MG 91 DO SE PK AZ 59 08 09 6. 5 00 NC Ac IT 76 -0 -0 00 00 L- ti HR 23 7- 1- 0 07 MA ve OM 06 20 20 50 RT YC 00 17 17 28 IN 1 16 PH AR 25 MA 0 CY MG #5 TA 91 BL ET CH 78 08 09 17 25 00 NC Ac LO 11 -0 -0 7. 00 L- ti RA 20 7- 1- 00 08 MA ve SE 01 20 20 0 84 RT PT 10 17 17 06 IC 3 18 PH AR SO MA RE CY TH #5 RO 91 AT SP RA Y LO 68 07 08 30 30 00 NC Ac SA 18 -2 -2 .0 00 L- ti RT 00 7- 5- 00 07 MA ve AN 21 20 20 50 RT -H 70 [address] 9 76 PH Z AR 10 MA 0- CY 25 #5 MG 91 TA B VE 00 07 08 30 30 00 NC Ac NL 09 -2 -2 .0 00 L- ti AF 37 7- 5- 00 07 MA ve AX 38 20 20 50 RT IN 45 17 17 09 E 6 83 PH HC AR L MA ER CY 37 #5 .5 91 MG CA P VE 00 06 07 30 30 00 NC Ac NL 09 -1 -1 .0 00 L- ti AF 37 9- 4- 00 07 MA ve AX 38 20 20 49 RT IN 45 17 17 43 E 6 73 PH HC AR L MA ER CY 37 #5 .5 91 MG CA P LO 68 06 07 30 30 00 NC Ac SA 18 -1 -1 .0 00 L- ti RT 00 9- 4- 00 07 MA ve AN 21 20 20 49 RT -H [address] 9 75 PH Z AR 10 MA 0- CY 25 #5 MG 91 TA B LO 68 05 06 30 30 00 NC Ac SA 18 -0 -0 .0 00 [...] LO 68 04 05 30 30 00 NC Ac SA 18 -1 -0 .0 00 L- ti RT 00 2- 5- 00 07 MA ve AN 21 20 20 44 RT -H [address] 9 55 PH Z AR 10 MA 0- CY 25 #5 MG 91 TA B VE 00 04 04 30 30 00 [facility] NL 09 -0 -2 .0 00 L- ti AF 37 4- 8- 00 07 MA ve AX 38 20 20 48 RT IN 45 17 17 04 E 6 58 PH HC AR L MA ER CY 37 #5 .5 91 MG CA P LO 68 03 04 30 30 00 [facility] SA 18 -1 -0 .0 00 L- ti RT 00 1- 7- 00 07 MA ve AN 21 20 20 44 RT -H [address] 9 55 PH Z AR 10 MA 0- CY 25 #5 MG 91 TA B BU 45 01 02 30 30 00 NC Ac NH 96 -2 -2 .0 00 L- ti OP 30 8- 4- 00 07 MA ve IO 14 20 20 44 RT N 20 17 17 39 HC 5 72 PH L AR XL MA CY 30 0 #5 MG 91 TA BL ET LO 68 01 02 30 30 00 [facility] SA 18 -2 -2 .0 00 [...] 017 K/mm3 ed monocyt 17:20 e count Tate % = 3.1 % 1.7-9.3 complet 017 [...] SQUARE METERS Comment: If this patient is -Cameroonian, then multiply the Comment: result by 1.210. [...] MEDICAL AIRWAY EQUIPME EQUIPME PRESSURE DEVICE DEHYDROEP 15938 [facility] IANDROSTE 7 ASHLEY ASHLEY MICHAEL HOLDINGS HOLDINGS SLEEP STD 17874 [facility] COLIN AIRFLOW 7 [facility] HRT INC INC RATE&O2 [place] [address] LAB AL[facility] LAB ALTON TESTOSTER 7 ASHLYE ASHLEY [place] [address] LAB [facility] ZINC 7 ASHLEY ASHLEY HOLDINGS HOLDINGS GONADOTRO 87981 LAB [facility] LAB AL[facility] PIN 7 ASHLEY ASHLEY LUTEINIZI HOLDINGS HOLDINGS NG HORMONE COLLECTIO 59105 Dave CISNEROS N VENOUS 7 STUART ESPANA BLOOD PSC VENIPUNCT URE COMPREHEN 83099 LAB [facility] LAB AL[facility] SIVE 7 ASHLEY ASHLEY METABOLIC HOLDINGS HOLDINGS PANEL GONADOTRO 93038 LAB [facility] LAB [facility] PIN 7 ASHLEY ASHLEY FOLLICLE HOLDINGS HOLDINGS [place] [address] LAB ALTON LAB ALTON TESTOSTER 7 ASHLEY [place]SH[place] [address] LAB AL[facility] LAB ALTON FREE 7 ASHLEY AHSLEY [place] [address] LAB AL[facility] THYROID 7 ASHLEY ASHLEY STIMULATI HOLDINGS HOLDINGS NG HORMONE TSH CREATINE 01596 [facility] COLIN KINASE MB 7 MEM HOS[facility] FRACTION INC INC ONLY COMPREHEN 68321 [facility] COL[facility] SIVE 7 [facility] METABOLIC INC INC PANEL ECG 87616 [facility] COLIN ROUTINE 7 [facility] ECG INC INC W/LEAST 12 LDS TRCG ONLY W/O I&R CREATINE 35026 [facility] COL[facility] KINASE 7 [facility] [place] [address] [facility] COL[facility] TROPONIN 7 MEM [facility] QUANTITAT INC INC ESTEBAN BLOOD 07999 [facility] COLIN COUNT 7 [facility] COMPLETE INC INC AUTO&AUTO DIFRNTL WBC UNCLASSIF J3490 [facility] COL[facility] IED DRUGS 7 [facility] INC INC RADIOLOGI 87368 [facility] C EXAM 7 MEDICAL CHEST 2 IMAGING VIEWS ASS FRONTAL&L ATERAL ECG 94355 [facility] ESPARZA ROUTINE 7 [facility] W/LEAST P 12 LDS I&R ONLY ECG 10581 [facility] ROUTINE 7 PHYSICIAN ECG S GROUP W/LEAST 12 LDS I&R ONLY UNCLASSIF J3490 [facility] COLIN IED DRUGS 7 [facility] INC INC ECG 89344 [facility] COL[facility] ROUTINE 7 [facility] ECG INC INC W/LEAST 12 LDS TRCG ONLY W/O I&R THER 51905 [facility] COLIN PROPH/DX 7 [facility] NJX IV INC INC PUSH SINGLE/1S T SBST/DRUG CREATINE 83641 [facility] COLIN KINASE MB 7 [facility] FRACTION INC INC ONLY UNCLASSIF J3490 [facility] COL[facility] IED DRUGS 7 [facility] INC INC ECG 19027 [facility] ROUTINE 7 [facility]OS[facility] ECG INC INC W/LEAST 12 LDS TRCG ONLY W/O I&R COMPREHEN 06564 [facility] SIVE 7 [facility] METABOLIC INC INC PANEL CREATINE 35715 [facility] COL[facility] KINASE 7 [facility]OS[facility] TOTAL INC INC BLOOD 85775 [facility] COL[facility] COUNT 7 [facility] COMPLETE INC INC AUTO&[place] [address] [facility] COLIN TROPONIN 7 [facility] QUANTITAT INC INC ESTEBAN ECG 26897 D[facility]IE SOSA JR ROUTINE 7 [facility] W/LEAST P 12 LDS I&R ONLY RADIOLOGI 04960 [facility] NORIEGA C EXAM 7 MEDICAL CHEST 2 IMAGING VIEWS ASS FRONTAL&L ATERAL RADEX 68391 MIKE FINE ANKLE 6 COMPLETE MINIMUM 3 VIEWS RADEX 86621 MIKE FINE FOOT 6 COMPLETE MINIMUM 3 VIEWS ECG 76384 [facility] ROUTINE 6 [facility] ECG INC INC W/LEAST 12 LDS TRCG ONLY W/O I&R ECG 37992 [facility] ROUTINE 6 PHYSICIAN MAT ECG S GROUP W/LEAST 12 LDS I&R ONLY LIPID 81969 A C CONRAD PANEL 6 [place] [address] LAB ALTON LAB ALTON TESTOSTER 6 ASHLEY ASHLEY ONE TOTAL HOLDINGS HOLDINGS ECHO [address] BRITNI [address]VA TRANSTHOR 6 [facility] C R-T 2D SERV W/WO FOUNDATIO M-MODE N REC F-UP/LMTD ECG 39065 [facility] ROUTINE 6 PHYSICIAN MAT ECG S GROUP W/LEAST 12 LDS I&R ONLY ECG 47018 [facility] COLIN ROUTINE 6 [facility] ECG INC INC W/LEAST 12 LDS TRCG ONLY W/O I&R CV STRS 01905 [facility] COL[facility] TST 6 [facility] XERS&/OR INC INC RX CONT ECG TRCG ONLY ECHO 11936 [facility] COL[facility] TTHRC R-T 6 [facility] 2D INC INC W/WOM-MOD E COMPL SPEC&[place] [address] [facility] RETROPERI 6 [facility] TONEAL INC [place] [address] [facility] NORIEGA ALL RETROPERI 6 MEDICAL TONEAL IMAGING REAL TIME ASS W/IMAGE LIMITED RADIOLOGI 89701 [facility] COLIN C EXAM 6 [facility] CHEST 2 INC INC VIEWS FRONTAL&L ATERAL ECG 27885 [facility] ANJALI ROUTINE 6 PHYSICIAN MAT ECG S GROUP W/LEAST 12 LDS I&R ONLY ECG 10103 [facility] COLIN ROUTINE 6 [facility] ECG INC INC W/LEAST 12 LDS TRCG ONLY W/O I&R ECG 94913 A C KILPELA ROUTINE 6 STUART ESPANA JEA ECG PSC W/LEAST 12 LDS W/I&R BLOOD 77016 A C TAMIKAPELA COUNT 6 STUART ESPANA JEA COMPLETE PSC AUTO&AUTO DIFRNTL WBC HEMOGLOBI 33782 A C KILPELA N 6 STUART ESPANA JEA GLYCOSYLA PSC ISABELLE A1C Encounters Encounter Start End Date Code Location Performer Type Date OFFICE 34690 A Omer CISNEROS OUTPATISIMÓN 7 7 ST[facility] ESPANA T VISIT PSC 15 MINUTES HOSPITAL DIX[facility] - 7 7 [facility]PATI[facility] INC T HOSPITAL DIXIE - 7 7 [facility] OUTPATIEN INC T EMERGENCY 51910 [facility] 7 7 [facility] DEPARTMEN INC T VISIT HIGH/URGE NT SEVERITY HOSPITAL D[facility]IE - 7 7 [facility] OUTPATIEN INC T OFFICE 55358 [facility] ANJALI OUTPATIEN 7 7 PHYSICIAN T VISIT S GROUP 25 MINUTES EMERGENCY 81684 [facility] 7 7 [facility] DEPARTMEN INC T VISIT HIGH/URGE NT SEVERITY HOSPITAL IDXIE - 7 7 [facility] OUTPATIEN INC T OFFICE 24905 MIKE FINE OUTPATIEN 6 6 T NEW 30 MINUTES OFFICE 26976 [facility] STONE OUTPATIEN 6 6 PHYSICIAN T VISIT GROUP 25 MINUTES OFFICE 02260 [facility] ANJALI OUTPATIEN 6 6 PHYSICIAN MAT T VISIT S GROUP 25 MINUTES HOSPITAL DXIIE - 6 6 [facility] OUTPATIEN INC T OFFICE 06716 A C KILPELA OUTPATIEN 6 6 STUART ADEN T VISIT [facility] 25 MINUTES OFFICE 02882 A C TAMIKAPELA OUTPATIEN 6 6 STUART ADEN T VISIT [facility] 15 MINUTES [facility] DIXIE - 6 6 [facility] OUTPATIEN [facility] T OFFICE 78437 [facility] ANJALI OUTPATIEN 6 6 PHYSICIAN RIKKI Faustin VISIT S GROUP 25 MINUTES [facility] DIXIE - 6 6 [facility] OUTPATIEN [facility] T OFFICE 14987 A C KILPELA OUTPATIEN 6 6 STUART Faustin VISIT [facility] 15 MINUT[facility] DIXIE - 6 6 [facility] OUTPATIEN [facility] T OFFICE 45522 [facility] ANJALI OUTPATIEN 6 6 PHYSICIAN RIKKI Faustin NEW 45 S GROUP MINUTES
--- OUTSIDE RECORDS SUMMARY | 2017-05-18 19:23 | External Medical Summary Rpt | CCD ---
Author Author , PRAVIN Organization [employer] Address Unknown Phone [email or web address] Care Team Providers Care A Operator Name Role Phone A Omer DAVIDSON MD PSC, Dave Unavailable Unavailable Omer DAVIDSON MD [facility] RADU LOVELACE Unavailable Unavailable BESSON, BESSON Unavailable Unavailable NORIEGA, NORIEGA Unavailable Unavailable NORIEGA ALL, NORIEGA ALL Unavailable Unavailable FINE, FINE Unavailable Unavailable CISNEROS, CISNEROS Unavailable Unavailable [facility] Unavailable Unavailable INC, [facility] Unavailable Unavailable HOSPITAL P, [facility], Unavailable [facility]available [facility], [facility]available [facility]available [facility] Unavailable Unavailable IMAGING ASS, [facility] KILPELA JEA, KILPELA Unavailable [...] [facility] INC R079 CHEST PAIN 09-29-2016 [place] [facility] [id number] ADVERS EFF 09-29-2016 [facility] OTH RX MEDS [facility] P SUBSTANCES INIT ENC [id number] UNS PLACE 09-29-2016 [facility] UNS NON [facility] P PLACE OF OCCUR EXT Z720 TOBACCO USE 09-29-2016 [facility] R400 SOMNOLENCE 09-18-2016 [facility] R7989 OTHER SPEC 09-18-2016 [facility] ABNORMAL PHYSICIANS FINDINGS GROUP BLOOD CHEMISTRY R931 ABNORMAL 09-18-2016 [facility] FIND[facility] ON PHYSICIANS DX IMAGING GROUP HEART & COR CIRC [id number] PAIN IN 07-08-2016 [facility] UNSPECIFIED ANKLE M2570 OSTEOPHYTE 07-08-2016 [facility] UNSPECIFIED JOINT M7730 CALCANEAL 07-08-2016 [facility] SPUR UNSPECIFIED FOOT [id number] PAIN IN 07-08-2016 MI[facility] RIGHT FOOT J020 STREPTOCOCC 06-23-2016 [facility] AL PHYSICIAN PHARYNGITIS GROUP 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-26-2016 [facility] SEVERE PHYSICIANS OBESITY DUE GROUP TO EXCESS CALORIES G4700 INSOMNIA 04-18-2016 A Omer DAVIDSON UNSPECIFIED PSC R635 ABNORMAL 04-18-2016 A Omer DAVIDSON WEIGHT GAIN PSC E785 HYPERLIPIDE 04-05-2016 [facility] UNSPECIFIED HOLDINGS 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 03-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 INSUFFICIEN CY I361 NONRHEUMATI 03-21-2016 [facility] TRICUSPID SERV [facility] INSUFFICIEN CY I371 NONRHEUMATI 03-21-2016 [place] [facility] PULMONARY SERV [facility] INSUFFICIEN CY R0602 SHORTNESS 03-21-2016 [facility] MEDICAL IMAGING ASS E669 OBESITY 03-19-2016 [facility] UNSPECIFIED PHYSICIANS GROUP Medications Na ND Rx [...] 60 7- 1- 00 07 MA ve NJ 00 20 20 50 RT ED 10 17 17 28 NI 3 15 PH SO AR LO MA NE CY 4 #5 MG 91 DO SE PK AZ 59 08 09 6. 5 00 PR Ac IT 76 -0 -0 00 00 L- ti HR 23 7- 1- 0 07 MA ve OM 06 20 20 50 RT YC 00 17 17 28 IN 1 16 PH AR 25 MA 0 CY MG #5 TA 91 BL ET CH 78 08 09 17 25 00 PR Ac LO 11 -0 -0 7. 00 L- ti RA 20 7- 1- 00 08 MA ve SE 01 20 20 0 84 RT PT 10 17 17 06 IC 3 18 PH AR SO MA RE CY TH #5 RO 91 AT SP RA Y LO 68 07 08 30 30 00 PR Ac SA 18 -2 -2 .0 00 L- ti RT 00 7- 5- 00 07 MA ve AN 21 20 20 50 RT -H [address] 9 76 PH Z AR 10 MA 0- CY 25 #5 MG 91 TA B VE 00 07 08 30 30 00 PR Ac NL 09 -2 -2 .0 00 L- ti AF 37 7- 5- 00 07 MA ve AX 38 20 20 50 RT IN 45 17 17 09 E 6 83 PH HC AR L MA ER CY 37 #5 .5 91 MG CA P VE 00 06 07 30 30 00 PR Ac NL 09 -1 -1 .0 00 L- ti AF 37 9- 4- 00 07 MA ve AX 38 20 20 49 RT IN 45 17 17 43 E 6 73 PH HC AR L MA ER CY 37 #5 .5 91 MG CA P LO 68 06 07 30 30 00 PR Ac SA 18 -1 -1 .0 00 L- ti RT 00 9- 4- 00 07 MA ve AN 21 20 20 49 RT -H [address] 9 75 PH Z AR 10 MA 0- CY 25 #5 MG 91 TA B LO 68 05 30 30 00 PR Ac SA 18 -0 -0 .0 00 L- ti RT 00 5- 2- 00 07 MA ve AN 21 20 20 48 RT -H [address] 9 57 PH Z AR 10 MA 0- CY 25 #5 MG 91 TA B VE 00 05 06 30 30 00 PR Ac NL 09 -0 -0 .0 00 [...] VE 00 04 04 30 30 00 PR Ac NL 09 -0 -2 .0 00 L- ti AF 37 4- 8- 00 07 MA ve AX 38 20 20 48 RT IN 45 17 17 04 E 6 58 PH HC AR L MA ER CY 37 #5 .5 91 MG CA P LO 68 03 04 30 30 00 PR Ac SA 18 -1 -0 .0 00 L- ti RT 00 1- 7- 00 07 MA ve AN 21 20 20 44 RT -H [address] 9 55 PH Z AR 10 MA 0- CY 25 #5 MG 91 TA B BU 45 01 30 30 00 PR Ac NJ 96 -2 -2 .0 00 L- ti OP 30 8- 4- 00 07 MA ve IO 14 20 20 44 RT N 20 17 17 39 HC 5 72 PH L AR XL MA CY 30 0 #5 MG 91 TA BL ET LO 68 01 30 30 00 [facility] SA 18 -2 -2 .0 00 L- [...] MEDICAL W/POS EQUIPME EQUIPME ARWAY PRESSURE DEVICE FULL FACE A7030 ANJELCARI HOBBS MASK 7 HOME HOME USED MEDICAL MEDICAL W/POS EQUIPME EQUIPME ARWAY PRESS DEVICE EA FILTER A7038 ANJEL HOBBS DISPBL 7 HOME HOME USED MEDICAL MEDICAL W/POS EQUIPME EQUIPME ARWAY PRESSURE DEVICE FILTER A7039 ANJELCARI HOBBS NON 7 HOME HOME DISPBL MEDICAL MEDICAL USED EQUIPME EQUIPME W/POS ARWAY PRESS DEVICE HEADGEAR A7035 ANJEL HOBBS USED 7 HOME HOME W/POSITIV MEDICAL MEDICAL E AIRWAY EQUIPME EQUIPME PRESSURE DEVICE TUBING A7037 ANJEL HOBBS USED WITH 7 HOME HOME POSITIVE MEDICAL MEDICAL AIRWAY EQUIPME EQUIPME PRESSURE DEVICE DEHYDROEP 45563 [facility] IANDROSTE 7 [facility] MICHAEL HOLDINGS HOLDINGS GONADOTRO [address] LAB AL[facility] PIN 7 [facility] LUTEINIZI [place] [address] LAB [facility] LAB ALTON TESTOSTER 7 ASHLEY ASHLEY [place] [address] LAB [facility] ZINC 7 ASHLEY ASHLEY HOLDINGS HOLDINGS GON[place]OTRO 56280 [facility] PIN 7 [facility] FOLLICLE HOLDINGS [place] [address] LAB ALTON LAB ALTON TESTOSTER 7 [facility] FREE HOLDINGS HOLDINGS COLLECTIO 74042 A C CISNEROS N VENOUS 7 STUART ESPANA BLOOD PSC VENIPUNCT URE COMPREHEN 21774 [facility] LAB [facility]TON SIVE 7 [facility] METABOLIC [place] [address] LAB ALTON LAB ALTON FREE 7 [facility] [place] [address] LAB ALTON LAB [facility]TON THYROID 7 [facility] STIMULATI HOLDINGS HOLDINGS NG HORMONE TSH SLEEP STD 64485 [facility] COLIN AIRFLOW 7 [facility] H[facility]OS[facility] HRT INC INC RATE&O2 SAT EFFORT UNATT COMPREHEN 64008 [facility] COLIN SIVE 7 [facility] H[facility]OS[facility] METABOLIC INC INC PANEL CREATINE 70906 [facility] COLIN KINASE MB 7 MEM HOS[facility]OS[facility] FRACTION INC INC ONLY UNCLASSIF J3490 D[facility] COLIN IED DRUGS 7 [facility] INC ECG 97206 DIXIE ESPARZA ROUTINE 7 [facility] W/LEAST P 12 LDS I&R ONLY BLOOD 29530 DIXIE COLIN COUNT 7 [facility] H[facility] COMPLETE INC INC AUTO&AUTO DIFRNTL WBC RADIOLOGI 85064 [facility] C EXAM 7 MEDICAL CHEST 2 IMAGING VIEWS ASS FRONTAL&[place] [address] D[facility] COLIN TROPONIN 7 [facility] H[facility] QUANTITAT INC INC ESTEBAN CREATINE 22827 [facility] COLIN KINASE 7 [facility] TOTAL INC INC ECG 57342 D[facility] COLIN ROUTINE 7 [facility] ECG INC INC W/LEAST 12 LDS TRCG ONLY W/O I&R ECG 42690 [facility] COL[facility] ROUTINE 7 [facility] ECG INC INC W/LEAST 12 LDS TRCG ONLY W/O I&R THER 05805 D[facility]IE COLIN PROPH/DX 7 [facility] NJX IV INC INC PUSH SINGLE/1S T SBST/DRUG UNCLASSIF J3490 DIXIE COLIN IED DRUGS 7 [facility] INC INC ECG 81026 [facility] ROUTINE 7 PHYSICIAN ECG S GROUP W/LEAST 12 LDS I&R ONLY ECG 58076 DIXIE SOSA JR ROUTINE 7 [facility] W/LEAST P 12 LDS I&R ONLY COMPREHEN 82253 DIXIE COLIN SIVE 7 [facility] METABOLIC INC INC PANEL CREATINE 49446 D[facility]IE COLIN KINASE MB 7 [facility] FRACTION INC INC ONLY RADIOLOGI 33361 [facility] C EXAM 7 MEDICAL CHEST 2 IMAGING VIEWS ASS FRONTAL&L ATERAL UNCLASSIF J3490 [facility] COLIN IED DRUGS 7 [facility] INC INC BLOOD 07906 D[facility]IE COLIN COUNT 7 [facility] COMPLETE INC INC AUTO&[place] [address] D[facility] COLIN TROPONIN 7 [facility] QUANTITAT INC INC ESTEBAN ECG 98970 [facility] COLIN ROUTINE 7 [facility]OS[facility] ECG INC INC W/LEAST 12 LDS TRCG ONLY W/O I&R CREATINE 41923 [facility] COLIN KINASE 7 [facility]OS[facility] TOTAL INC INC RADEX 46881 MIKE FINE ANKLE 6 COMPLETE MINIMUM 3 VIEWS RADEX 19058 MIKE FINE FOOT 6 COMPLETE MINIMUM 3 VIEWS ECG 97241 [facility] ANJALI ROUTINE 6 PHYSICIAN MAT ECG S GROUP W/LEAST 12 LDS I&R ONLY ECG 65237 [facility] COLIN ROUTINE 6 [facility] ECG INC INC W/LEAST 12 LDS TRCG ONLY W/O I&R LIPID 78026 A C KILPELA PANEL 6 [place] [address] LAB ALTON LAB ALTON TESTOSTER 6 ASHLEY ASHLEY ONE TOTAL HOLDINGS HOLDINGS ECHO 88391 BRITNI LEYVA TRANSTHOR 6 MEDICAL LINDA C R-T 2D SERV W/WO FOUNDATIO M-MODE N REC F-UP/LMTD ECG 53039 [facility] ANJALI ROUTINE 6 PHYSICIAN MAT ECG S GROUP W/LEAST 12 LDS I&R ONLY ECG 31996 [facility] COLIN ROUTINE 6 [facility] ECG INC INC W/LEAST 12 LDS TRCG ONLY W/O I&R CV STRS 09979 [facility] COLIN TST 6 [facility] XERS&/OR [place] [address] DIXIE DIXIE RETROPERI 6 [facility] TONEAL INC [place] W/[place] [address] [place] ALL RETROPERI 6 MEDICAL TONEAL IMAGING REAL TIME ASS W/IMAGE LIMITED RADIOLOGI 23299 D[facility] DIXIE C EXAM 6 [facility]OS[facility] CHEST 2 INC INC VIEWS FRONTAL&L ATERAL ECHO 88467 DIXIE DIXIE TTHRC R-T 6 [facility] H[facility]OS[facility] 2D INC INC W/WOM-MOD E COMPL SPEC&COLR D ECG 90299 [facility] ANJALI ROUTINE 6 PHYSICIAN MAT ECG S GROUP W/LEAST 12 LDS I&R ONLY ECG 29042 [facility] COLIN ROUTINE 6 [facility] ECG INC INC W/LEAST 12 LDS TRCG ONLY W/O I&R ECG 51851 A C KILPELA ROUTINE 6 STUART ESPANA JEDave ECG PSC W/LEAST 12 LDS W/I&R HEMOGLOBI 03054 A C KILPELA N 6 STUART ADEN GLYCOSYLA PSC ISABELLE A1C BLOOD 74788 A C KILPELA COUNT 6 STUART ADEN COMPLETE PSC AUTO&AUTO DIFRNTL WBC Encounters Encounter Start End Date Code Location Performer Type Date [facility] DIXIE - 7 7 [facility] OUTPATIEN [facility] T OFFICE 70694 A [facility] [place] [facility] 7 7 [facility] ESPANA T VISIT PSC 15 MINUTES HOSPITAL DIXIE - 7 7 [facility] OUTPATIEN [facility] T EMERGENCY 87392 DIXIE 7 7 [facility] T VISIT HIGH/URGE NT SEVERITY OFFICE 33306 [facility] ANJALI OUTPATIEN 7 7 PHYSICIAN T VISIT S GROUP 25 MINUTES HOSPITAL DIXIE - 7 7 [facility] OUTPATIEN [facility] DIXIE - 7 7 [facility] OUTPATIEN [facility] T EMERGENCY 04810 DIXIE 7 7 [facility] T VISIT HIGH/URGE NT SEVERITY OFFICE 72516 [facility] OUTPATIEN 6 6 T NEW 30 MINUTES OFFICE 49989 [facility] STONE OUTPATIEN 6 6 PHYSICIAN T VISIT GROUP 25 MINUTES HOSPITAL DIXIE - 6 6 [facility] OUTPATIEN [facility] T OFFICE 98739 [facility] ANJALI OUTPATIEN 6 6 PHYSICIAN MAT T VISIT S GROUP 25 MINUTES OFFICE 89322 A C [facility] OUTPATIEN 6 6 STUART ADEN T VISIT PSC 25 MINUTES OFFICE 65221 A C [facility] OUTPATIEN 6 6 [facility] ADEN T VISIT PSC 15 MINUTES HOSPITAL DIXIE - 6 6 [facility] OUTPATIEN [facility] T OFFICE 27736 [facility] ANJALI OUTPATIEN 6 6 PHYSICIAN MAT T VISIT S GROUP 25 MINUTES HOSPITAL DIXIE - 6 6 [facility] OUTPATIEN [facility] T OFFICE 65376 A C K[facility] OUTPATIEN 6 6 STUART Faustin VISIT [facility] 15 MINUTES OFFICE 77192 [facility] ANJALI OUTPATIEN 6 6 PHYSICIAN RIKKI GARCIA [address] [facility] DIXIE - 6 6 [facility] OUTPATIEN [facility] T
--- OUTSIDE RECORDS SUMMARY | 2017-05-18 19:23 | External Medical Summary Rpt | CCD ---
Demographics Preferred Language Kinyarwanda Marital Status Unknown Yazidi Affiliation Unknown Race Unknown Ethnic Group Unknown Author Author , [facility] Organization [facility] Address Unknown Phone Immunization Unable to retrieve immunization data due to connection failure with Immunization Registry. Please try again later.
--- OUTSIDE RECORDS SUMMARY | 2017-05-18 19:23 | External Medical Summary Rpt | CCD ---
Author Author , PRAVIN Organization [employer] Address Unknown Phone [email or web address] Care Team Providers Care Cost Estimating Clerk Name Role Phone A Omer DAVIDSON MD PSC, Dave Unavailable Unavailable Omer DAVIDSON MD [facility] Unavailable Unavailable BESSON, BESSON Unavailable Unavailable NORIEGA, NORIEGA Unavailable Unavailable NORIEGA ALL, NORIEGA ALL Unavailable Unavailable FINE, FINE Unavailable Unavailable CISNEROS, CISNEROS Unavailable Unavailable [facility] Unavailable Unavailable INC, [facility] Unavailable Unavailable H[facility]PITAL P, [facility], Unavailable Unavailable [facility], Unavailable Unavailable [facility] Unavailable [facility]available [facility], [place] [facility] [...] 09-29-2016 [place] [facility] [id number] ADVERS EFF 09-29-2016 [facility] OTH RX MEDS [facility] P SUBSTANCES INIT ENC [id number] UNS PLACE 09-29-2016 [facility] UNS NON [facility] P PLACE OF OCCUR EXT Z720 TOBACCO USE 09-29-2016 [facility] R400 SOMNOLENCE 09-18-2016 [facility] [id number] OTHER SPEC 09-18-2016 [facility] ABNORMAL PHYSICIANS FINDINGS GROUP BLOOD CHEMISTRY R931 ABNORMAL 09-18-2016 [facility] FINDINGS ON PHYSICIANS DX IMAGING GROUP HEART & COR CIRC [id number] PAIN IN 07-08-2016 [facility] UNSPECIFIED ANKLE M2570 OSTEOPHYTE 07-08-2016 [facility] UNSPECIFIED JOINT M7730 CALCANEAL 07-08-2016 [facility] SPUR UNSPECIFIED FOOT [id number] PAIN IN 07-08-2016 [facility] RIGHT FOOT J020 STREPTOCOCC 06-23-2016 [facility] AL PHYSICIAN PHARYNGITIS GROUP 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-26-2016 [facility] SEVERE PHYSICIANS OBESITY DUE GROUP TO EXCESS CALORIES G4700 INSOMNIA 04-18-2016 A Omer DAVIDSON UNSPECIFIED PSC R635 ABNORMAL 04-18-2016 A Omer DAVIDSON WEIGHT GAIN PSC E785 HYPERLIPIDE 04-05-2016 [facility] UNSPECIFIED HOLDINGS 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 03-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 [facility] INSUFFICIEN CY I361 NONRHEUMATI 03-21-2016 [facility] TRICUSPID SERV [facility] INSUFFICIEN CY I371 NONRHEUMATI 03-21-2016 [facility] PULMONARY SERV [facility] INSUFFICIEN CY R0602 SHORTNESS 03-21-2016 [facility]ICAL [facility] E669 OBESITY 03-19-2016 [facility] UNSPECIFIED PHYSICIANS GROUP Medications Na [...] 60 7- 1- 00 07 MA ve CA 00 20 20 50 RT ED 10 [...] B BU 45 01 30 30 00 OH Ac CA 96 -2 -2 .0 00 L- ti OP 30 8- 4- 00 07 MA ve IO 14 20 20 44 RT N 20 17 17 39 HC 5 72 PH L AR XL MA CY 30 0 #5 MG 91 TA BL ET LO 68 01 30 30 00 [facility] SA 18 -2 -2 .0 00 L- [...] MEDICAL AIRWAY EQUIPME EQUIPME PRESSURE DEVICE DEHYDROEP 47971 LAB [facility] LAB [facility] IANDROSTE 7 [place] [facility] MICHAEL [facility] [place] [address] LAB [facility] LAB ALTON PIN 7 [facility] LUTEINIZI [place] [address] LAB ALTON LAB ALTON TESTOSTER 7 ASHLEY [place] [address] LAB ALTON LAB ALTON ZINC 7 ASHLEY ASHLEY [employer] [place] 268[address] LAB ALTON LAB ALTON PIN 7 [facility] FOLLICLE HOLDINGS [place] [address] LAB ALTON LAB ALTON TESTOSTER 7 [facility] HOLDINGS HOLDINGS COLLECTIO 065[address] A C CISNEROS N VENOUS 7 STUART ESPANA BLOOD PSC VENIPUNCT URE COMPREHEN 80959 LAB ALTON LAB ALTON SIVE 7 [facility] [facility] METAB[place] [address] LAB ALTON LAB ALTON FREE 7 [facility] [employer] [place] [address] LAB ALTON LAB ALTON THYROID 7 [place] [place] [facility] [facility] STIMULATI HOLDINGS HOLDINGS NG HORMONE TSH SLEEP STD 09024 [facility] COLIN AIRFLOW 7 [facility] HRT INC INC RATE&O2 SAT EFFORT UNATT COMPREHEN 30716 [facility] COLIN SIVE 7 [facility] METABOLIC INC INC PANEL CREATINE 23545 D[facility] COLIN KINASE MB 7 [facility] FRACTION INC INC ONLY UNCLASSIF J3490 D[facility] COLIN IED DRUGS 7 [facility] INC ECG 32930 DIXIE ESPARZA ROUTINE 7 [facility] W/LEAST P 12 LDS I&R ONLY BLOOD 05649 D[facility] COLIN COUNT 7 [facility] COMPLETE INC INC AUTO&AUTO DIFRNTL WBC RADIOLOGI 60624 [facility] C EXAM 7 MEDICAL CHEST 2 IMAGING VIEWS [place] FRONTAL&[place] [address] D[facility]IE COLIN TROPONIN 7 [facility] QUANTITAT INC INC ESTEBAN CREATINE 67180 [facility] COLIN KINASE 7 [facility] TOTAL INC INC ECG 21373 [facility] COLIN ROUTINE 7 [facility] ECG INC INC W/LEAST 12 LDS TRCG ONLY W/O I&R ECG 69010 [facility] COLIN ROUTINE 7 [facility] ECG INC INC W/LEAST 12 LDS TRCG ONLY W/O I&R THER 65443 D[facility]IE COLIN PROPH/DX 7 [facility] NJX IV INC INC PUSH SINGLE/1S T SBST/DRUG UNCLASSIF J3490 D[facility]IE COLIN IED DRUGS 7 [facility] INC INC ECG 88349 [facility] ROUTINE 7 PHYSICIAN ECG S GROUP W/LEAST 12 LDS I&R ONLY ECG 58190 DIXIE SOSA JR ROUTINE 7 [facility] W/LEAST P 12 LDS I&R ONLY COMPREHEN 48538 DIXIE COLIN SIVE 7 [facility] METABOLIC INC INC PANEL CREATINE 88253 DIXIE COLIN KINASE MB 7 [facility] FRACTION INC INC ONLY RADIOLOGI 73173 [facility] C EXAM 7 MEDICAL CHEST 2 IMAGING VIEWS ASS FRONTAL&L ATERAL UNCLASSIF J3490 D[facility]IE COLIN IED DRUGS 7 [facility] INC INC BLOOD 19695 DIXIE COLIN COUNT 7 [facility] COMPLETE INC INC AUTO&[place] [address] DIXIE COLIN TROPONIN 7 [facility] QUANTITAT INC INC ESTEBAN ECG 31955 DIXIE COLIN ROUTINE 7 [facility] ECG INC INC W/LEAST 12 LDS TRCG ONLY W/O I&R CREATINE 20911 DIXIE COLIN KINASE 7 [facility] TOTAL INC INC RADEX 41711 MIKE FINE ANKLE 6 COMPLETE MINIMUM 3 VIEWS RADEX 08291 MIKE FINE FOOT 6 COMPLETE MINIMUM 3 VIEWS ECG 21690 [facility] ANJALI ROUTINE 6 PHYSICIAN MAT ECG S GROUP W/LEAST 12 LDS I&R ONLY ECG 39529 DIXIE COLIN ROUTINE 6 [facility] ECG INC INC W/LEAST 12 LDS TRCG ONLY W/O I&R LIPID 96087 A C KILPELA PANEL 6 [place] [address] LAB ALTON LAB ALTON TESTOSTER 6 ASHLEY ASHLEY ONE TOTAL HOLDINGS HOLDINGS ECHO 76203 BRITNI LEYVA TRANSTHOR 6 MEDICAL LINDA C R-T 2D SERV W/WO FOUNDATIO M-MODE N REC F-UP/LMTD ECG 29608 [facility] ANJALI ROUTINE 6 PHYSICIAN MAT ECG S GROUP W/LEAST 12 LDS I&R ONLY ECG 02298 [facility] COLIN ROUTINE 6 [facility] ECG INC INC W/LEAST 12 LDS TRCG ONLY W/O I&R CV STRS 89309 [facility] COLIN TST 6 [facility] XERS&/OR [place] [address] DIXIE DIXIE RETROPERI 6 [facility] TONEAL INC [place] W/[place] [address] [place] NORIEGA ALL RETROPERI 6 MEDICAL TONEAL IMAGING REAL TIME ASS W/IMAGE LIMITED RADIOLOGI 89413 DIXIE DIXIE C EXAM 6 [facility] CHEST 2 INC INC VIEWS FRONTAL&L ATERAL ECHO 91643 DIXIE DIXIE TTHRC R-T 6 [facility] 2D INC INC W/WOM-MOD E COMPL SPEC&COLR D ECG 70020 [facility] ANJALI ROUTINE 6 PHYSICIAN MAT ECG S GROUP W/LEAST 12 LDS I&R ONLY ECG 26774 [facility] COLIN ROUTINE 6 [facility] ECG INC INC W/LEAST 12 LDS TRCG ONLY W/O I&R ECG 11896 A C KILPELA ROUTINE 6 STUART ESPANA JEDave ECG PSC W/LEAST 12 LDS W/I&R HEMOGLOBI 27650 A C KILPELA N 6 STUART ADEN GLYCOSYLA PSC ISABELLE A1C BLOOD 75003 A C KILPELA COUNT 6 STUART ADEN COMPLETE PSC AUTO&AUTO DIFRNTL WBC Encounters Encounter Start End Date Code Location Performer Type Date [facility] DIXIE - 7 7 [facility] OUTPATIEN [facility] T OFFICE 88827 A C [place] OUTPATIEN 7 7 STUART ESPANA T VISIT PSC 15 MINUTES HOSPITAL DIXIE - 7 7 [facility] OUTPATIEN [facility] T EMERGENCY 90242 DIXIE 7 7 [facility] T VISIT HIGH/URGE NT SEVERITY OFFICE 40194 [facility] ANJALI OUTPATIEN 7 7 PHYSICIAN T VISIT S GROUP 25 MINUTES HOSPITAL DIXIE - 7 7 [facility] OUTPATIEN [facility] DIXIE - 7 7 [facility] OUTPATIEN [facility] T EMERGENCY 44951 DIXIE 7 7 [facility] T VISIT HIGH/URGE NT SEVERITY OFFICE 33741 MIKE FINE OUTPATIEN 6 6 T NEW 30 MINUTES OFFICE 92768 [facility] STONE OUTPATIEN 6 6 PHYSICIAN T VISIT GROUP 25 MINUTES HOSPITAL DIXIE - 6 6 [facility] OUTPATIEN [facility] T OFFICE 71487 [facility] ANJALI OUTPATIEN 6 6 PHYSICIAN MAT T VISIT S GROUP 25 MINUTES OFFICE 61499 A C K[place] OUTPATIEN 6 6 STUART ADEN T VISIT PSC 25 MINUTES OFFICE 08621 A C KILPELA OUTPATIEN 6 6 STUART ADEN T VISIT PSC 15 MINUTES HOSPITAL DIXIE - 6 6 [facility] OUTPATIEN [facility] T OFFICE 34119 [facility] ANJALI OUTPATIEN 6 6 PHYSICIAN MAT T VISIT S GROUP 25 MINUTES HOSPITAL DIXIE - 6 6 [facility] OUTPATIEN [facility] T OFFICE 10607 A C KILPELA OUTPATIEN 6 6 STUART Faustin VISIT [facility] 15 MINUTES OFFICE 64270 [facility] ANJALI OUTPATIEN 6 6 PHYSICIAN RIKKI GARCIA [address] DIXIE - 6 6 [facility] OUTPATIEN [facility] T
--- OUTSIDE RECORDS SUMMARY | 2017-05-18 19:23 | External Medical Summary Rpt | CCD ---
Demographics Preferred Language German Marital Status Unknown Adventism Affiliation Unknown Race Unknown Ethnic Group Unknown Author Author , PRAVIN Organization [employer] Address Unknown Phone Immunization Unable to retrieve immunization data due to connection failure with Immunization Registry. Please try again later.
--- OUTSIDE RECORDS SUMMARY | 2017-05-18 19:23 | External Medical Summary Rpt ---
Author Author PRAVIN Pham, [employer] Organization [employer] Address Unknown Phone Unavailable Results Natriutietic peptide B [Mass/volume] in Serum or Plasma Observa Value Referen Units Interpr Notes Date tion ce etation Range Natriutie 0 - 100 pg/mL Normal No May 18 tic informati 2016 5:20 peptide B on in PM source [Mass/vol data ume] in Serum or Plasma Lactate [Moles/volume] in Blood Observa Value Referen Units Interpr Notes Date tion ce etation Range Lactate 0.4 - 2.0 mmol/L Normal No May 18 [Moles/vo informati 2016 5:20 lume] in on in PM Blood source data CBC W Auto Differential panel in Blood Observa Value Referen Units Interpr Notes Date tion ce etation Range Basophils 0 - 0.2 K/MM3 Normal No May 18 inform2016 5:20 [#/volume on in PM ] in source Blood by data Automated count Basophils 0.1 - 2.0 % Normal No May 18 informati 2016 5:20 leukocyte on in PM s in source Blood by data Automated count Eosinophi 0.0 - 0.4 K/mm3 Normal No May 18 ls informati 2016 5:20 [#/volume on in PM ] in source Blood by data Automated count Eosinophi 0.1 - % Normal No May 18 ls/100 12.0 informati 2016 5:20 leukocyte on in PM s in source Blood by data Automated count Granulocy 1.3 - 8.0 K/mm3 Normal No May 18 vidhya informati 2016 5:20 [#/volume on in PM ] in source Blood by data Automated count Granulocy 37.0 - % Normal No May 18 vidhya/100 80.0 informati 2016 5:20 leukocyte on in PM s in source Blood by data Automated count Hematocri 42.0 - % Low No May 18 t [Volume 52.0 informati 2016 5:20 on in PM Fraction] source of Blood data Hemoglobi 14.1 - g/dL Normal No May 18 n 18.0 informati 2016 5:20 [Mass/vol on in PM ume] in source Blood data Lymphocyt 0.7 - 4.5 K/mm3 Normal No May 18 es informati 2016 5:20 [#/volume on in PM ] in source Unspecifi data ed specimen by Automated count Lymphocyt 10 - 50 % Normal No May 18 es informati 2016 5:20 [#/volume on in PM ] in source Unspecifi data ed specimen by Automated count Erythrocy 27 - 31.2 pg Normal No May 18 te mean informati 2016 5:20 corpuscul on in PM ar source hemoglobi data n [Entitic mass] Erythrocy 31.8 - g/dl High No May 18 te mean 35.4 informati 2016 5:20 corpuscul on in PM ar source hemoglobi data n concentra tion [Mass/vol ume] by Automated count Erythrocy 82.2 - fl Normal No May 18 te mean 97.8 informati 2016 5:20 corpuscul on in PM ar volume source [Entitic data volume] by Automated count Monocytes 0.1 - 1.0 K/mm3 Normal No May 18 informati 2016 5:20 [#/volume on in PM ] in source Blood by data Automated count Monocytes 1.7 - 9.3 % Normal No May 18 /100 informati 2016 5:20 leukocyte on in PM s in source Blood by data Automated count Platelet 7.4 - fl Normal No May 18 mean 10.4 informati 2016 5:20 volume on in PM [Entitic source volume] data in Blood by Automated count Platelets 142 - 424 K/mm3 Low No May 18 informati 2016 5:20 [#/volume on in PM ] in source Blood data Erythrocy 4.6 - 6.2 M/mm3 Normal No May 18 vidhya informati 2016 5:20 [#/volume on in PM ] in source Amniotic data fluid Erythrocy 11.5 - % Normal No May 18 te 17.5 informati 2016 5:20 distribut on in PM ion width source [Entitic data volume] by Automated count Leukocyte 4.8 - K/MM3 Normal No May 18 s 10.8 informati 2016 5:20 [#/volume on in PM ] in source Blood data Streptococcus pyogenes Ag [Presence] in Unspecified specimen Observa Value Referen Units Interpr Notes Date tion ce etation Range Strepto NOT NOTDETE No No LOT # Feb 24 coccus DETECTE CTED informa informa N/A EXP 2017 pyogene D tion in tion in DATE 4:50 PM s Ag source source N/A [Presen data data ce] in Unspeci fied specime n
[2017-05-18 20:00] VITALS: BP 145/78
[2017-05-18 20:35] VITALS: BP 145/78
--- NOTE | 2017-05-18 23:47 | RADIOLOGY REPORT PS360 ---
CT HEAD W/O CONTRAST HISTORY: Headache, head pain HTN A HEADACHE ORDERING PHYSICIAN: Vineet Hancock MD PATIENT AGE: 37 years COMPARISON: 06/14/2014 TECHNIQUE: Axial images obtained without contrast. Brain and bone windows reviewed. FINDINGS: No midline shift, mass effect, intracranial hemorrhage, hydrocephalus, or extra-axial fluid collection is evident. The calvarium has an unremarkable appearance. No mastoid effusion. The visualized paranasal sinuses are unremarkable. IMPRESSION: Negative CT head without contrast. No acute finding.
--- NOTE | 2017-05-19 00:01 | RADIOLOGY REPORT PS360 ---
CHEST(2 VIEWS-NOT PORTABLE) HISTORY: CHEST PAIN, FEVER ORDERING PHYSICIAN: Vineet Hancock MD PATIENT AGE: 37 years COMPARISON: 09/29/2016 FINDINGS: The cardiomediastinal silhouette and pulmonary vascularity are within normal limits. The lungs are clear without infiltrates, suspicious nodules, or pleural effusions. No acute bony abnormalities. IMPRESSION: Negative chest, no acute finding
[2017-05-19 00:35] VITALS: BP 148/85
[2017-05-19 03:56] VITALS: BP 161/86
[2017-05-19 06:57] LABS: BUN 9 mg/dL (7-18)
[2017-05-19 07:00] LABS: GFR (ESTIMATED) 95 ML/MIN (>60)
--- NOTE | 2017-05-19 07:23 | PHARMACY CLINIC NOTE ---
Patient Demographics Patient Demographics Admission date: 05/18/17 Date: 05/19/17 Time: 0723 Allergies Coded Allergies: Penicillins (-- 05/18/17) codeine (-- 05/18/17) HEIGHT- FT: 6 IN: 4.00 K.017 VTE General Information Labs: Laboratory Tests 05/18 1720 Hematology Hgb (14.1 - 18.0 g/dL) 14.6 Hct (42.0 - 52.0 %) 40.9 L Plt Count (142 - 424 K/mm3) 132 L Disclaimer The following section includes nursing documentation that has been pulled in for pharmacy review. Patient's VTE score: 1 Patient's VTE Risk: VERY LOW RISK Clinical trial participant? No VTE prophylaxis NQF [id number] VTE prophylaxis ordered? Yes Type of prophylaxis/treatment: ISABELLE at 0723
--- NOTE | 2017-05-19 07:30 | Discharge Summary Standard ---
Demographics: Admit date: 05/18/17 Chief complaint: Headache and chest pain PRIMARY DIAGNOSIS: HYPERTENSIVE EMERGENCY; CHEST PAIN; NON COMPLIANCE Allergies: Coded Allergies: Penicillins (-- 05/18/17) codeine (-- 05/18/17) History of present illness: History of present illness: 37-year-old male with history of hypertension, untreated obstructive sleep apnea , morbid obesity presented to the emergency department after being sent there by the local [facility]. Patient presented to the [facility] with complaint of 3 days of fever as high as 101 and headache. On triage his blood pressure was elevated significantly, the visit was stopped and he was sent to the emergency department. In the emergency Department patient's blood pressure was elevated and he reported complaints of chest pain and dyspnea over the last several months in addition to his other acute symptoms. Patient's blood pressure was brought down in the emergency department, labs were unremarkable as was physical exam. Patient was admitted for further observation of his blood pressure. Blood pressure has remained somewhat better controlled overnight although still elevated above normal. Patient admits he has a difficult time remembering to take his medication on a regular basis. His obstructive sleep apnea is untreated he has difficulty wearing the C Pap mask. He is the heaviest he's ever been. He does not follow any specific type of diet and states "my diet is crap". His is at bedside. Patient underwent a cardiac evaluation approximately a year ago which included echocardiogram and stress test through contact centre supervisor. Past medical history: Family HX Family Hx Insignificant No Diabetes Yes CAD Yes Hypertension Yes Hyperlipidemia Yes Cancer Yes TB No Immunization HX DT/Tetanus 5-10 YRS Flu Refused Pneumonia Unknown TB Test in last year No General CAD? No Angina: No NC: No Hypertension? Yes Hyperlipidemia? No CHF? No DVT? No PE? No COPD? No Asthma? No Anemia? No GERD? No Gastric ulcers? No GI Bleed? No Hernia? No Thyroid Problems? No Hypothyroidism? No CVA? No Seizures? No Diabetes? No Renal Insuffiency? No UTI? No Stones? No BPH? No GB Disease: No Nephritic Syndrome? No Asplenia? No Hepatitis? No Sickle Cell Disease? No Arthritis? No Migraines? Yes Cataracts? No Glaucoma? No MRSA? No HIV? No TB? No Anxiety? Yes Depression? No Cancer? No More? No Past Surgical HX Previous Surgery?N Current home meds: Reported Medications LOSARTAN/HYDROCHLOROTHIAZIDE (Losartan-Hctz 100-25 MG Tab) 1 TAB PO DAILY #30 TAB ASPIRIN (Aspirin) 81 MG PO DAILY Social Hx: Smoking HX Tobacco No Type CIGARS Packs/day N/A Are you/the child exposed to second-hand smoke: No Alcohol Alcohol: Yes How much do you drink More Than 10 Drinks/Day For how long Longer Than 5 Years When was your last drink 12-24 Hours Ago Hx of Drug Use Drug Use? No Patien't marital status is Patient's support system is good Review of systems: Constitutional chills, fever. Respiratory shortness of breath, SOB at rest. No: cough. Cardiovascular chest pain, edema Gastrointestinal/Abdominal no symptoms reported Genitourinary no symptoms reported. Musculoskeletal no symptoms reported, other (myalgias). Neurological Yes: headache. Exam: Lab data for last 24 hours: Laboratory Tests 05/19/17 0612: Sodium 138, Potassium 3.6, Chloride 101, Carbon Dioxide 30, BUN 9, Creatinine 0.9, Estimated Creat Clear 266 H, Estimated GFR (MDRD) 95, Glucose 115 H, Calcium 9.0, Troponin I < 0.02 05/18/17 2340: Troponin I < 0.02 05/18/17 1720: Lactic Acid 1.4 05/18/17 1720: B-Natriuretic Peptide 11 05/18/17 1720: Sodium 137, Potassium 3.3 L, Chloride 100, Carbon Dioxide 28, BUN 9, Creatinine 0.9, Estimated Creat Clear 255 H, Estimated GFR (MDRD) 95, Glucose 114 H, Calcium 8.7, Total Bilirubin 0.6, AST 49 H, ALT 102 H, Alkaline Phosphatase 100, Creatine Kinase 54, CK-MB (CK-2) Rel Index 0.9, CK and CKMB Interp < 0.5, Troponin I < 0.02, Total Protein 7.6, Albumin 3.6, Globulin 4.0 H, Albumin/ Globulin Ratio 0.9 L, WBC 5.8, RBC 4.86, Hgb 14.6, Hct 40.9 L, MCV 84.2, RDW 12.8, Plt Count 132 L, MPV 7.7, Gran % 77.8, Gran # 4.5, Lymphocytes % 17.4, Monocytes % 3.1, Eosinophils % 1.5, Basophils % 0.3, Lymphocytes # 1.0, Monocytes # 0.2, Eosinophils # 0.1, Basophils # 0.0, PUBS MCHC 35.6 H, MCH 29.9 Microbiology 05/18 1720 BLOOD: Anaerobic Blood Culture - RECD 05/18 1720 BLOOD: Aerobic Blood Culture - RECD 05/18 1720 BLOOD: Anaerobic Blood Culture - RECD 05/18 1720 BLOOD: Aerobic Blood Culture - RECD Admission vital signs: 1ST Vital Signs Result Date Time Pulse Ox 96 05/18 1714 B/P 196/114 05/18 1714 Temp 99.6 05/18 1714 Pulse 109 05/18 1714 Resp 20 05/18 1714 O2 Delivery ROOM AIR 05/18 2000 Exam General appearance: normal appearance, alert, awake Eyes: normal exam, anicteric ENT: normal exam, mucous membranes moist Neck: normal inspection, non-tender, no carotid bruit, no JVD Cardiovascular: normal exam Respiratory: normal exam, clear to auscultation ABD: normal exam, non-distended, normal bowel sounds Extremities: normal exam Hospital Course Hospital Course: Patient was admitted and initially placed on a nitroglycerin patch which triggered worsening headaches of this was discontinued. He was given lisinopril 10 mg in the emergency department. On the morning of the patient was given Avalide 300/12.5 and amlodipine 5 mg was added to his regimen. By the time of interview echocardiogram was in process so this was repeated. Discussion was had with the patient that he needs significant lifestyle changes for his hypertension. Patient needs to take ownership of his weight and his unhealthy lifestyle and we discussed ways to make changes. For a long time this patient has essentially been his own worst enemy when it comes to his health. His losartan/hydrochlorothiazide will be continued and amlodipine 10 mg will be added to his daily regimen. A low-salt diet has been emphasizing the patient would benefit from weight loss more than any other intervention. He will follow- up in the office in 4 days. Medications Medications: Discharge meds are as noted. Follow up Follow up in office in: 4 DAYS with: Rom Lopez MD at 1223
[2017-05-19] MEDS ORDERED: AMLODIPINE10 M2 PO (07:31)
[2017-05-19 07:49] VITALS: BP 154/85
[2017-05-19 07:57] LABS: CORONAVIRUS 229E NOT DETECTED (NOT DETECTE); CORONAVIRUS HKU 1 NOT DETECTED (NOT DETECTE); CORONAVIRUS NL63 NOT DETECTED (NOT DETECTE); CORONAVIRUS OC43 NOT DETECTED (NOT DETECTE)
[2017-05-19 08:02] LABS: HEMOGLOBIN 14.3 g/dL (14.1-18.0)
[2017-05-19 08:03] LABS: LYMPH # 0.7 K/mm3 (0.7-4.5); LYMPH % 16.1 % (10-50)
[2017-05-19 09:00] VITALS: BP 154/85
[2017-05-19 10:28] LABS: RHINOVIRUS/ENTEROVIRUS DETECTED (NOT DETECTE)
[2017-05-19 12:00] VITALS: BP 175/94
--- NOTE | 2017-05-19 12:20 | CONSULT NOTE ---
Standard Demographics Patient Demo Date of Consultation: 05/19/17 Referring Provider: Rom Lopez MD Reason for Consultation: HTN Emergency PRIMARY DIAGNOSIS: HYPERTENSIVE EMERGENCY; CHESTPAIN; NON COMPLIANCE Problem list Problem list: 1. HTN 2. Obesity 3. Adopted 4. ETOH abuse 5. Chronic pain syndrome/Joint aches 6. GERD 7. DEB, non-compliance with CPAP History of present illness: History of present illness: 37-year-old male with history of hypertension, untreated obstructive sleep apnea , morbid obesity presented to the emergency department after being sent there by the local [facility]. Patient presented to the [facility] with complaint of 3 days of fever as high as 101 and headache. On triage his blood pressure was elevated significantly, the visit was stopped and he was sent to the emergency department. In the emergency Department patient's blood pressure was elevated and he reported complaints of chest pain and dyspnea over the last several months in addition to his other acute symptoms. Patient's blood pressure was brought down in the emergency department, labs were unremarkable as was physical exam. Patient was admitted for further observation of his blood pressure. Blood pressure has remained somewhat better controlled overnight although still elevated above normal. Patient admits he has a difficult time remembering to take his medication on a regular basis. His obstructive sleep apnea is untreated he has difficulty wearing the C Pap mask. He is the heaviest he's ever been. He does not follow any specific type of diet and states "my diet is crap". His is at bedside. Patient underwent a cardiac evaluation approximately a year ago which included echocardiogram and stress test through violin tutor. The above per Dr. Lopez Chest pains are atypical in nature (not aggravated by activity and seem worse at rest). He describes some discomfort which may be reflux related in light of his daily pint of bourbon and NSAID use. EKG shows NSR with LVH by criteria. Preliminary echo shows LVH changes without significant valve abnormalities. Past Medical History: General: Hypertension Yes CVA No Seizures No TB No COPD No Asthma No Diabetes No Angina No CA No Hyperlipidemia No Urinary No Cancer No Rheumatic H.D. No Ulcers No MRSA No GB Disease No Past Surgical HX: Previous Surgery?N Allergies Coded Allergies: Penicillins (-- 05/18/17) codeine (-- 05/18/17) Home medications: Reported Medications LOSARTAN/HYDROCHLOROTHIAZIDE (Losartan-Hctz 100-25 MG Tab) 1 TAB PO DAILY #30 TAB ASPIRIN (Aspirin) 81 MG PO DAILY Current Medications: Current Medications Amlodipine Besylate 5 MG DAILY PO Aspirin 81 MG DAILY PO Irbesartan 300 MG DAILY PO Ibuprofen 0 .STK-MED ONE PO (DC) Ibuprofen 600 MG Q6HP PRN PO Lisinopril 10 MG ONCE ONE PO (DC) Nitroglycerin 1 IN Q6 TP (DC) Lisinopril 0 .STK-MED ONE .ROUTE (DC) Ibuprofen 0 .STK-MED ONE PO (DC) Famotidine 20 MG BID IV Sodium Chloride 8 ML BID IV Acetaminophen 650 MG Q4HP PRN PO Influenza Virus Vaccine Quadrival 0.5 ML PRN PRN IM Nicotine 21 MG DAILYP PRN TD Ondansetron HCl 4 MG Q6HP PRN IV Sodium Chloride 1,000 ML .Q25H IV (DC) Potassium Chloride 0 .STK-MED ONE PO (DC) Potassium Chloride 40 MEQ ONCE ONE PO (DC) Nitroglycerin 1 IN ONCE ONE TP (DC) Sodium Chloride 10 ML PRN PRN IV Nitroglycerin 0 .STK-MED ONE .ROUTE (DC) Immunization HX DT/Tetanus 5-10 YRS AGO Flu Refused Pneumonia Unknown TB Test in last year No Family history Family HX Family Hx Insignificant No Diabetes Yes CAD Yes Hypertension Yes Hyperlipidemia Yes Cancer Yes TB No Social Hx: Smoking HX Tobacco No Type CIGARS Packs/day N/A Are you/the child exposed to second-hand smoke: No Alcohol Alcohol: Yes How much do you drink More Than 10 Drinks/Day For how long Longer Than 5 Years When was your last drink 12-24 Hours Ago Hx of Drug Use Drug Use? No Patien't marital status is Patient's support system is good Review of systems: Constitutional see HPI, fever. Respiratory SOB with excertion. Cardiovascular see HPI, chest pain Gastrointestinal/Abdominal No no symptoms reported Genitourinary No: no symptoms reported. Musculoskeletal joint pain, muscle pain, muscle stiffness. Neurological No: no symptoms reported. Exam: Admission Vital Signs: 1ST Vital Signs Result Date Time Pulse Ox 96 05/18 1714 B/P 196/114 05/18 1714 Temp 99.6 05/18 1714 Pulse 109 05/18 1714 Resp 20 05/18 1714 O2 Delivery ROOM AIR 05/18 2000 Last Vital Signs: Vital Signs Result Date Time Pulse Ox 99 05/19 900 B/P 154/85 05/19 900 Temp 98.0 05/19 900 Pulse 78 05/19 900 Resp 22 05/19 900 O2 Delivery ROOM AIR 05/19 0749 Exam General appearance: alert, awake, no acute distress Neck: no carotid bruit, no JVD Cardiovascular: regular rate & rhythm, no murmur Respiratory: clear to auscultation, good air movement ABD: soft, no tenderness Extremities: moves all, no peripheral edema Neuro: alert, intact, oriented Laboratory data: Laboratory Tests 05/19/17 0750: Chlamy pneum (TEM-PCR) NOT DETECTED, Adenovirus (PCR) NOT DETECTED, B. pertussis DNA (PCR) NOT DETECTED, Coronavirus OC43 (PCR) NOT DETECTED, Coronavirus HKU1 ( PCR) NOT DETECTED, Coronavirus 229E (PCR) NOT DETECTED, Coronavirus NL63 (PCR) NOT DETECTED, Human Metapneumovir PCR NOT DETECTED, Influenza A (H1) PCR NOT DETECTED, Influ A (H1N1/09) PCR NOT DETECTED, Influenza A (H3) PCR NOT DETECTED, Influenza Type A (PCR) NOT DETECTED, Influenza Type B (PCR) NOT DETECTED, M. pneumoniae (PCR) NOT DETECTED, Parainfluenza 1 (PCR) NOT DETECTED, Parainfluenza 2 (PCR) NOT DETECTED, Parainfluenza 3 (PCR) NOT DETECTED, Parainfluenza 4 (PCR) NOT DETECTED, RSV (PCR) NOT DETECTED, Entero/Rhino (PCR) DETECTED H 05/19/17 0612: Sodium 138, Potassium 3.6, Chloride 101, Carbon Dioxide 30, BUN 9, Creatinine 0.9, Estimated Creat Clear 266 H, Estimated GFR (MDRD) 95, Glucose 115 H, Calcium 9.0, Troponin I < 0.02, WBC 5.4, RBC 4.85, Hgb 14.3, Hct 43.0, MCV 88.8, RDW 12.9, Plt Count 128 L, MPV 7.7, Gran % 79.6, Gran # 4.3, Lymphocytes % 16.1 , Monocytes % 2.3, Eosinophils % 1.5, Basophils % 0.5, Lymphocytes # 0.7, Monocytes # 0.1, Eosinophils # 0.1, Basophils # 0.0, PUBS MCHC 33.3, MCH 29.6 10/29/17 2340: Troponin I < 0.02 05/18/17 1720: Lactic Acid 1.4 05/18/17 172: B-Natriuretic Peptide 11 05/18/17 1720: Sodium 137, Potassium 3.3 L, Chloride 100, Carbon Dioxide 28, BUN 9, Creatinine 0.9, Estimated Creat Clear 255 H, Estimated GFR (MDRD) 95, Glucose 114 H, Calcium 8.7, Total Bilirubin 0.6, AST 49 H, ALT 102 H, Alkaline Phosphatase 100, Creatine Kinase 54, CK-MB (CK-2) Rel Index 0.9, CK and CKMB Interp < 0.5, Troponin I < 0.02, Total Protein 7.6, Albumin 3.6, Globulin 4.0 H, Albumin/ Globulin Ratio 0.9 L, WBC 5.8, RBC 4.86, Hgb 14.6, Hct 40.9 L, MCV 84.2, RDW 12.8, Plt Count 132 L, MPV 7.7, Gran % 77.8, Gran # 4.5, Lymphocytes % 17.4, Monocytes % 3.1, Eosinophils % 1.5, Basophils % 0.3, Lymphocytes # 1.0, Monocytes # 0.2, Eosinophils # 0.1, Basophils # 0.0, PUBS MCHC 35.6 H, MCH 29.9 Microbiology Date/Time Procedure - Status Source Growth 05/18 1720 Anaerobic Blood Culture - RECD BLOOD 05/18 1720 Aerobic Blood Culture - RECD BLOOD 05/18 1720 Anaerobic Blood Culture - RECD BLOOD 05/18 1720 Aerobic Blood Culture - RECD BLOOD Plan: Assessment: 1. HTN Emergency with HHD changes on echo and EKG (LVH). BP improved with addition of amlodipine to losartan/HCTZ. 2. ETOH abuse with elevated LFT's, contributing to #1. 3. Enterovirus/Rhinovirus with fevers. 4. Obesity 5. Joint pain/aches, for which he has been taking NSAID's 6. DEB, non-compliance with CPAP Recommendations: Agree with current medications for BP. Strongly encouraged ETOH and NSAID cessation. Hold on ASA daily until BP consistently stable. Recommend using CPAP and he is to discuss changing to nasal mask for improved compliance. Dietary changes and daily exercise to help with weight loss. Follow up in one week. at [id number]
[2017-05-19 14:25] VITALS: BP 175/94
--- NOTE | 2017-05-19 18:35 | RADIOLOGY REPORT PS360 ---
PROCEDURE: 2-D M-mode and color Doppler study INDICATIONS FOR THE TEST: Chest pain + COPD Heart Murmur Tobacco Smoking Palpitations Fatigue Syncope Edema+ Hypertension+Diabetes Mellitus Rheumatic Fever SOB+GRAVES Obesity Hyperlipidemia Family History HD Additional History NON-COMPLIANT, NEG B/S 04/03/16. PATIENT INFORMATION HEIGHT:76 WEIGHT:350 GENDER: Male B/P: 2-D/M-MODE INTERPRETATION: 2-D MEASUREMENTS OBSERVED VALUES IN CMS Right Ventricular Dimension (RVDd) 2.4 Interventricular Septum (Thickness)(IVsd) 1.2 Left Ventricular Internal Dimensions(LVIDd) 5.8 Left Ventricular Posterior Wall (Thickness)(LVPWd) 1.4 Aortic Root 3.9 Aortic Cusp Separation 2.5 Left Atrial Dimensions (LAD) 4.3 2D 1. Left atrium is mildly enlarged, left ventricle is normal size, there is mild concentric left ventricular hypertrophy, visually estimated ejection fraction 55% with no obvious regional wall motion abnormality. 2. The right atrium is mildly enlarged, right ventricle is normal size and contractility. 3. The aortic valve is minimally thickened and fibrosed. 4. The mitral and tricuspid valve are grossly normal. 5. The pulmonic valve is poorly visualized. 6. No significant pericardial effusion noted. DOPPLER INTERROGATION: Doppler interrogation of the aortic, mitral and tricuspid valvular presence of mild mitral and tricuspid regurgitation, tricuspid regurgitant jet velocity insufficient for calculation of the right ventricular systolic pressure, diastolic parameters are inconclusive CONCLUSION: 1. Mild biatrial enlargement, normal left ventricular size, mild concentric left ventricular hypertrophy, visually estimated ejection fraction 55% with no obvious regional wall motion abnormality, diastolic parameters are inconclusive. 2. Mild mitral and tricuspid regurgitation. 3. No significant pericardial effusion noted.
== END 2017-05-19 14:25 | disposition home or self-care (01) ==
LOC: ER 17:13 → 2ND 19:17 → ER 19:17 → 2ND 19:43
PROVIDERS: Emergency Medicine; Family Medicine
DX: I10 Essential (primary) hypertension (principal); Z72.0 Tobacco use; B34.8 Other viral infections of unspecified site; G89.29 Other chronic pain; F10.20 Alcohol dependence, uncomplicated
CPT/HCPCS: G0378